=== PATIENT | female | born 1940 | race Caucasian/White ===

== ENCOUNTER → 2016-08-10 | Outpatient (CLI) | payer OTHER ==
[~2016-08-10] MED LIST: AMLO-110 PO; ASPI81TA28 PO; CALC500C70 PO; CETI10TA10 PO; CYAN100020 PO; DVN80 PO; FLUT0.0529 NAE; INSDGI SC; ISOS-10 PO; METO25TA3 PO; MONT1TAB3 PO; OMEG10007 PO; PRLSR20 PO; SIMV40TA4 PO
[2016-08-10 13:00] VITALS: BP 128/70; PULSE 84; TEMP 36.7; O2SAT 97
--- NOTE | 2016-08-10 13:33 | Radiation Oncology Follow-Up ---
Radiation Oncology Follow-Up Date of Visit Aug 10, 2016. (Pearl Cheng PA-C) Reason For Visit Annual follow-up (Pearl Cheng PA-C) Radiation Completion Date 01/11/15 (Pearl Cheng PA-C) Diagnosis (1) Endometrial cancer Status: Resolved Onset Date: 07/29/2014 Stage: l (A) Permanent Comment: Corpus uteri, endometrium, serous papillary adenocarcinoma, FIGO IA Postmenopausal vaginal bleeding Status post D&C and hysteroscopy 07/29/2014 revealing high-grade adenocarcinoma consistent with serous carcinoma Status post robotic-assisted total abdominal hysterectomy and bilateral salpingo -oophorectomy 08/12/2014 Pathologic stage [id number] Status post 3 cycles of Taxol and carboplatin Status post completion of radiation therapy utilizing HDR treatments. 3 treatments were given 700 cGy each radiation completed 01/11/2015 received 2100 cGy Last Edited By: Pearl Cheng on Jan 18, 2015 14:07 (Pearl Cheng PA-C) History of Present Illness Ms. Knight is a 76 year old female who initially presented with diffuse vaginal bleeding in June 2014. She was referred by her PCP to have a transvaginal ultrasound which was completed on 07/06/2014 which was limited due to technical difficulties. She then had a CT Abdo/Pelvis on the same day which revealed an enlarged anterior uterine mass which measured 7.3 cm but no other concerning findings (please refer to report scanned in for other information). Dr. Machado performed a dilatation and curettage on 07/29/2014; his examination revealed "somewhat hyperemic almost inflamed like tissue within the uterine cavity. Ostia was not seen. This was highly suggestive of malignancy." Biopsies revealed high grade adenocarcinoma most likely consisten with serous carcinoma. She then went to have a total abdominal hysterectomy and bilateral salpingo-oophorectomy (TAHBSO) which was completed on 08/12/[address] 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 Otherwise, the lymph nodes were all negative from the lymph node dissection which extended to the para-aortics. The patient was then referred to Dr. Vo who has been treating the patient with adjuvant carboplatin/ taxol chemotherapy. She only has one more cycle of chemotherapy remaining next week. We are now seeing her in consultation regarding the role of adjuvant radiation therapy. Today, she is doing relatively well. She has no complaints with respect to vaginal bleeding. She has no vaginal discharge or discomfort. She is tolerating chemotherapy well underneath the supervision of Dr. Vo. She completed her chemotherapy and return to our office to undergo radiation therapy. Recommendation for 3 HDR treatments. (Pearl Cheng PA-C) Interim History She is continued regular follow-up with Dr. Lee. She had been seeing him every 3 months. As is now every 6 months. She has external itching and redness. He has prescribed a topical steroid. With the use of this cream the itching has resolved. She does have some difficulty with keeping the prescription filled because of her renal months supply from [facility]. We did discuss that she could speak with Dr. Lee's office and obtain a higher quantity of medication. She previously was followed by Dr. Vo. He has since left the practice. She is going to continue with Dr. Lee alone. She denies any vaginal discharge. There is been no change in urination or bowel habits. She does not use the vaginal dilator on a regular basis. (Pearl Cheng PA-C) Allergies Coded Allergies: No Known Allergies (Unverified , 11/12/14) Home Medications Scheduled Amlodipine (Norvasc), 5 MG PO DAILY Aspirin (Aspirin Ec), 81 MG PO DAILY Cetirizine Hcl (Zyrtec), 10 MG PO DAILY Cyanocobalamin (Vitamin B12), 1,000 MCG PO 3XWK Insulin Glargine (Lantus), 34 UNITS SC HS Isosorbide Mononitrate (Isosorbide Mononitrate ER), 60 MG PO DAILY Metoprolol Succ (Toprol Xl) (Toprol-Xl), 25 MG PO DAILY Montelukast Sodium (Singulair), 10 MG PO DAILY Omeprazole (Prilosec), 20 MG PO DAILY Simvastatin (Zocor), 40 MG PO HS Valsartan (Diovan), 80 MG PO DAILY Review of Systems Gastrointestinal: Symptoms: WNL Oral: Symptoms: No Problems Respiratory: Symptoms: Dry Cough, SOB With Exertion Other Respiratory: " I have ashma and a constant cough " Urinary: Symptoms: WNL Skin: Symptoms: No Problems Other Skin Symptoms: sometimes perineum gets itchy , red and sore. OK on colbetasol oint (Pearl Cheng PA-C) Physical Exam Vital Signs Date Time Temp Pulse Resp B/P (MAP) Pulse Ox O2 Delivery O2 Flow Rate FiO2 08/10/16 13:00 36.7 84 22 128/70 97 Pain: Pain Onset: 2 days Pain Duration: constant Side: Bilateral Pain Location: Hip Patient Pain Scale: 0 - 10 Initial Pain Intensity: 0.0 Pain Description: Aching Fatigue: None General Appearance: no apparent distress Eyes: normal inspection, EOMI ENT: normal ENT inspection, hearing grossly normal Neck: no adenopathy Respiratory/Chest: lungs clear, no respiratory distress, no accessory muscle use Cardiovascular: regular rate, rhythm, no gallop, no murmur Abdomen: non tender, soft Genitourinary - Female: External genitalia reveals mild erythema of the labia. This extends mildly towards the rectal area. There is no discharge. Vaginal examination reveals mild telangiectasia at the apex. There is no vaginal discharge or bleeding. There are no visible or palpable lesions of the vagina. Bimanual examination reveals no masses. Anal / Rectum: No rectal masses and no rectal bleeding. Extremities: no pedal edema Neurologic/Psychiatric: no motor/sensory deficits, alert, normal mood/affect Skin: warm/dry (Pearl Cheng PA-C) Assessment & Plan Plan: The patient was also seen and examined by Dr. Alejandra. There was no difficulty with her examination and therefore the vaginal dilator does not have to use on a regular basis. She'll continue to see Dr. Lee every 6 months. He follows laboratory studies. Any recheck scanning per Dr. Noguera. She may call our office if she has any questions or concerns. We asked her to return to our office in 1 year. (Pearl Cheng PA-C) I agree with note created by Pearl Cheng PA-C. I reviewed the patient's chart and information with her. I have examined and evaluated the patient. I reviewed relevant clinical information and answered the patient's and/or family' s questions. (Veeral. Alejandra MD) Total Time In Follow-Up I spent 20 minutes speaking to the patient and performing examination. A 15 minutes reviewing information in completing this note. (Pearl Cheng PA-C) I spent 15 minutes examining and counseling the patient. (Veeral. Alejandra MD) Copy To Sree Guzman M.D.; Vel Lee M.D.
== END | disposition home or self-care (01) ==
LOC: C.ONC 12:49
PROVIDERS: ATTEND Physician Assistant Medical
DX: Z08 Encounter for follow-up examination after completed treatment for malignant neoplasm (principal); Z92.3 Personal history of irradiation; Z85.42 Personal history of malignant neoplasm of other parts of uterus

== ENCOUNTER 2019-02-04 16:12 | Inpatient (IN) ==
--- NOTE | 2019-02-04 20:27 | History & Physical Report ---
Date of Service February 04, 2019 Assessment & Plan (1) Bilateral pleural effusion: Admit to PCU on telemetry. Vital signs every 4 hours BNP, procalcitonin pending. Plan initial electrolytes as necessary. Consult thoracic surgery Dr. Irby Consult hematology oncology Dr. michelle Santoro. DVT prophylaxis SCDs and teds Full code Present on Admission?: Yes (2) Dyspnea: Duo nebs every 4 hours Will need to treat to the original problem which is most likely malignant bilateral pleural effusion. Pending evaluation by . Continue duo nebs, started on Symbicort. Continue montelukast 10 mg p.o. daily. Present on Admission?: Yes (3) Chronic cough: As above Present on Admission?: Yes (4) Gastrointestinal malignancy: Referred to Dr. michelle Santoro hematology oncology. 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 Present on Admission?: Yes (5) Hypertension: Continue home medicine: Aspirin 81 mg 1 tablet p.o. daily, metoprolol succinate 25 mg p.o. daily, continue isosorbide mononitrate 60 mg extended release. Present on Admission?: Yes History of Present Illness Chief Complaint: Bilateral pleural effusion, shortness of breath Primary Care Provider: Sree Guzman MD 78 years old female with past medical history of endometrial cancer which was removed to gather with ovaries in 2014 sent from her PCP Mr. Chirinos at [facility] in [place] where she was for follow-up, evaluation for bilateral pleural effusion with suspicion of metastatic pleural effusion. Patient reports being very short of breath in the past month. Patient recently had a thoracocentesis of the right lung and 1000 mils was removed from her right pleural effusion. Apparently there were found atypical cells in the fluid and diagnosed with a gastro-intestinal cancer. She is followed by hematology oncology. Patient said he did not find any saying on her left side. She continues to be short of breath and have discomfort with these inhalation. Patient denies fever, chills, chest pain, shortness of breath, abdominal pain, frequency, urgency. Labs are pending:, Chest x-ray is pending, at [facility] chest x-ray shows bilateral pleural effusion. Decision was made to admit patient to the PCU on telemetry for further evaluation and treatment of shortness of breath. Allergies Allergy/AdvReac Type Severity Reaction Status Date / Time animal dander Allergy Unknown Verified 02/04/19 11:59 grass pollen Allergy Unknown Verified 02/04/19 11:59 Home Medications Home Medications Medication Instructions Recorded Confirmed Type albuterol sulfate 90 mcg/actuation INHALATION .INHALE 2 PUFFS EVERY 11/18/18 02/04/19 History aerosol inhaler #3 gm aspirin 81 mg tablet PO .TAKE 1 TABLET DAILY. tab 11/18/18 02/04/19 History cyanocobalamin (vitamin B-12) 500 SL .TAKE 1 TABLET 3 TIME tab 11/18/18 02/04/19 History mcg disintegrating tablet,sublingual ergocalciferol (vitamin D2) 50,000 PO .TAKE 1 CAPSULE WEEKL #4 cap 11/18/18 02/04/19 History unit capsule ipratropium-albuterol 0.5 mg-3 INHALATION .USE 1 UNIT DOSE IN N 11/18/18 02/04/19 History mg(2.5 mg base)/3 mL nebulization #6 ml soln isosorbide mononitrate 60 mg PO .TAKE 1 TABLET ONCE D tab 11/18/18 02/04/19 History tablet,extended release 24 hr metoprolol succinate 25 mg PO .TAKE ONE TABLET BY M tab 11/18/18 02/04/19 History tablet,extended release 24 hr nitroglycerin 0.4 mg sublingual SL .PLACE 1 TABLET UNDER tab 11/18/18 02/04/19 History tablet omeprazole 20 mg capsule,delayed 1 PO .TAKE 1 CAPSULE Daily cap 11/18/18 02/04/19 History release rosuvastatin 5 mg tablet PO .TAKE 1 TABLET DAILY. #30 tab 11/18/18 02/04/19 History nebulizers #1 ea 11/19/18 02/04/19 Rx cetirizine 10 mg tablet 10 mg PO DAILY #90 tab 12/10/18 02/04/19 Rx montelukast 10 mg tablet 10 mg PO DAILY #90 tab 01/01/19 02/04/19 Rx levofloxacin 500 mg tablet 500 mg PO DAILY #14 tab 02/04/19 02/04/19 Rx prednisone 10 mg tablet See Rx Instructions PO DAILY #20 02/04/19 02/04/19 Rx tab Past Med/Surg History Social History Preferred Language: Mohawk Communication Ability: Effective Legislators Required: No Beliefs That Will Affect Care: None Current Living Situation: Spouse Feels Safe at Home: Yes Safety Concerns: Feels Safe At This Time Smoking Status: Never smoker Do You Dip or Chew Tobacco: No ; Second Hand Exposure: No ; Tobacco Cessation Education Requested by Patient: No Hx Alcohol Use: No Hx Substance Use: No Review of Systems Review of Systems: All systems reviewed & are unremarkable except as noted in HPI & below Physical Exam Constitutional: WD/WN, vitals as above well developed and + ill appearing Pacemaker left chest. Eyes: PERRL, conjunctivae normal, anicteric sclerae ENMT: external ear and nose normal, oropharynx normal Neck: trachea midline, no thyromegaly Respiratory: Auscultation: + diminished lung sounds, + crackles and + wheezes Cardiovascular: RRR, no murmur, no edema Gastrointestinal (Abdomen): normal bowel sounds, soft, nontender, no hepatosplenomegaly Musculoskeletal: no cyanosis or clubbing, extremities motor strength 5/5 Skin: no rashes, warm and dry Neurologic: patellar DTR's 2+ bilat, sensation intact Psychiatric: A+Ox3, euthymic affect Lymphatic: no cervical or axillary lymphadenopathy Results & Data Vital Signs (Past 12 Hours) Vital Signs Temp Pulse Resp BP Pulse Ox 02/04/19 18:59 36.5 C 84 18 143/72 H 93 Code Status & VTE Plan Code Status Full code VTE Prophylaxis Plan VTE Prophylaxis will be ordered: Yes PG Care Time/CCT Total # of Minutes Spent Total Time Spent with Patient: Total time spent is greater than 50% in coordination of care (as documented) at patient's floor/unit and/or counseling patient:
[2019-02-04] MEDS ORDERED: ACETAMINOPHEN 325 MG TAB PO PRN (20:29)
[2019-02-04] MEDS ORDERED: POLYETHYLENE (MIRALAX) 17 GM PACK PO PRN (20:29)
[2019-02-04] MEDS ORDERED: MAGNESIUM HYDROXIDE SUSP 30 ML UDC PO PRN (20:29)
[2019-02-04] MEDS ORDERED: ALBUT/IPRATROP 3MG/0.5MG NEB 3 ML VIAL INH PRN (20:29)
[2019-02-04] MEDS ORDERED: ALBUTEROL HFA 8 GM INHALER INH PRN (20:29)
--- NOTE | 2019-02-04 21:04 | XRay Report ---
XR chest 1V portable CLINICAL HISTORY: Bilateral pleural effusions. COMPARISON STUDY: PET/CT March 29, 2015. FINDINGS: Dual lead left subclavian pacemaker is in place. There is no pneumothorax. There is pulmona ry vascular congestion with suspected mild pulmonary edema. Moderate to large bilateral pleural effus ions are noted with bibasilar opacities. IMPRESSION: 1. Moderate to large bilateral pleural effusions with bibasilar opacities that may reflect atelectasi s or consolidation. Radiographic follow-up is recommended. 2. Pulmonary vascular congestion with suspected mild pulmonary edema. Electronically signed by: Tonio Mead M.D. 02/04/2019 9:03 PM
[2019-02-04 21:24] LABS: Thyroid Stimulating Hormone 3.41 uIu/ml (0.300-4.500)
[2019-02-04] MEDS: BUDESONIDE/FORMOTEROL FUMARATE 160/4.5 60 PUFFS/INHALER INH SCH (21:45)
[2019-02-04] MEDS: CYANOCOBALAMIN 500 MCG TABLET (VITAMIN B-12) PO SCH (21:46)
[2019-02-04] MEDS: METOPROLOL SUCC 25MG EXT REL TAB PO SCH (21:47)
[2019-02-04] MEDS ORDERED: INFLUENZA VACCINE HIGH DOSE 65+ 0.5 ML SYR IM ONE (22:45)
[2019-02-04] MEDS ORDERED: INFLUENZA ADMINISTRATION CHARGE ONE (22:45)
[2019-02-05 06:22] LABS: Basophils # (auto) 0.03 K/uL (0-0.2); Basophils % (auto) 0.4 %; Eosinophils # (auto) 0.27 K/uL (0-0.5); Eosinophils % (auto) 3.8 %; Hematocrit (blood only) 36.2 % (37-47); Hemoglobin 11.4 g/dL (12.0-16.0); Immature Granulocytes # (auto) 0.01 K/uL (0.00-0.02); Immature Granulocytes % (auto) 0.1 %; Lymphocytes # (auto) 1.86 K/uL (1.2-3.4); Lymphocytes % (auto) 26.1 %; Mean Corpuscular Hemoglobin 26.6 pg (25-34); Mean Corpuscular Hgb Conc 31.5 g/dL (32-36); Mean Corpuscular Volume 84.6 fL (80-100); Mean Platelet Volume 10.2 fL (7.4-10.4); Monocytes # (auto) 0.63 K/uL (0.11-0.59); Monocytes % (auto) 8.8 %; Neutrophils # (auto) 4.33 K/uL (1.4-6.5); Neutrophils % (auto) 60.8 %; Platelet Count 350 K/uL (130-400); RDW Coefficient of Variation 14.1 % (11.5-14.5); Red Blood Count 4.28 M/uL (4.2-5.4); White Blood Count 7.13 K/uL (4.8-10.8)
[2019-02-05 06:35] LABS: Partial Thromboplastin Ratio 0.9; Prothrombin Time 10.3 Seconds (9.0-12.0)
[2019-02-05 06:57] LABS: Albumin Level 3.1 gm/dl (3.4-5.0); BUN Creatinine Ratio 28.3 (10-20); Creatinine Clr Calc Pharmacy 24.3 ml/min; Est GFR (African American) 34.6; Est GFR (Non-African American) 29.9; Potassium 4.3 mmol/L (3.5-5.1)
[2019-02-05 07:00] LABS: Albumin Globulin Ratio 0.8 (0.9-2); Bilirubin,Total 0.3 mg/dl (0.2-1); Globulin 3.8 gm/dl (2.5-4.0); Total Protein 6.9 gm/dl (6.4-8.2)
[2019-02-05] MEDS ORDERED: LIDOCAINE HCL 1% 20 ML VIAL ONE (07:45)
--- NOTE | 2019-02-05 08:04 | Surgery Consultation ---
Date of Consultation February 05, 2019 Assessment & Plan (1) Bilateral pleural effusion: We will plan on draining her fluid. We will likley start with either a right pleurex insertion or right thoracentesis. We will send the fluid for appropriate analysis. Based on her response we may consider a left thoracentesis as well. I discussed with her the risks which include but are not limited to bleeding, infection, pneumothorax, re-expansion pulmonary edema, and fluid recurrence. The alternative is clinical monitoring. The benefits include improving her respiratory status and obtaining a diagnosis of the fluid. She expressed her understanding and wishes to proceed. Informed consent has been obtained. History of Present Illness Reason for Consultation: Bilateral Pleural Effusions Attending Physician: Shahriar Narvaez DO History of Present Illness 78 year old female was seen by pulmonary medicine yesterday due to SOB. She was sent for a CXR which showed bilateral pleural effusions. Due to this she was admitted to [facility] for further care. She notes she had a right thoracentesis for 1000 cc about 1 week ago at [facility]. There was reportedly concern for atypical cell concerning for malignancy. She notes that over the past wee, however, she has continue to be SOB which has gotten progressively worse. She notes she is SOB with minimal activity and sometimes at rest. She denies fevers, shakes, chills. Of note, she was diagnosed with endometrial cancer in 2104 for which she underwent a PAOLO-BSO followed by chemotherapy and brachytherapy. She was noted to have ascites recently and underwent a paracentesis on 12/26/18--the fluid revealed metastatic adenocarcinoma concerning for uterine/ovarian primary. At the time of my visit she was sitting up at the beside n no distress. Allergies Allergy/AdvReac Type Severity Reaction Status Date / Time animal dander Allergy Unknown Verified 02/04/19 11:59 grass pollen Allergy Unknown Verified 02/04/19 11:59 Home Medications Home Medications Medication Instructions Recorded Confirmed Type albuterol sulfate 90 mcg/actuation INHALATION .INHALE 2 PUFFS EVERY 11/18/18 02/04/19 History aerosol inhaler #3 gm aspirin 81 mg tablet PO .TAKE 1 TABLET DAILY. tab 11/18/18 02/04/19 History cyanocobalamin (vitamin B-12) 500 SL .TAKE 1 TABLET 3 TIME tab 11/18/18 02/04/19 History mcg disintegrating tablet,sublingual ergocalciferol (vitamin D2) 50,000 PO .TAKE 1 CAPSULE WEEKL #4 cap 11/18/18 02/04/19 History unit capsule ipratropium-albuterol 0.5 mg-3 INHALATION .USE 1 UNIT DOSE IN N 11/18/18 02/04/19 History mg(2.5 mg base)/3 mL nebulization #6 ml soln isosorbide mononitrate 60 mg PO .TAKE 1 TABLET ONCE D tab 11/18/18 02/04/19 History tablet,extended release 24 hr metoprolol succinate 25 mg PO .TAKE ONE TABLET BY M tab 11/18/18 02/04/19 History tablet,extended release 24 hr nitroglycerin 0.4 mg sublingual SL .PLACE 1 TABLET UNDER tab 11/18/18 02/04/19 History tablet omeprazole 20 mg capsule,delayed 1 PO .TAKE 1 CAPSULE Daily cap 11/18/18 02/04/19 History release rosuvastatin 5 mg tablet PO .TAKE 1 TABLET DAILY. #30 tab 11/18/18 02/04/19 History nebulizers #1 ea 11/19/18 02/04/19 Rx cetirizine 10 mg tablet 10 mg PO DAILY #90 tab 12/10/18 02/04/19 Rx montelukast 10 mg tablet 10 mg PO DAILY #90 tab 01/01/19 02/04/19 Rx levofloxacin 500 mg tablet 500 mg PO DAILY #14 tab 02/04/19 02/04/19 Rx prednisone 10 mg tablet See Rx Instructions PO DAILY #20 02/04/19 02/04/19 Rx tab Patient History Social History Preferred Language: [place]araguan Communication Ability: Effective Pipe Stress Engineer Required: No Beliefs That Will Affect Care: None Current Living Situation: Spouse Feels Safe at Home: Yes Safety Concerns: Feels Safe At This Time Smoking Status: Never smoker Do You Dip or Chew Tobacco: No ; Second Hand Exposure: No ; Tobacco Cessation Education Requested by Patient: No Hx Alcohol Use: No Hx Substance Use: No Review of Systems Constitutional: no fever, no chills, no sweats and no fatigue Eyes: no diplopia Ear, Nose, Mouth, Throat: no ear pain Respiratory: + dyspnea and + dyspnea on exertion Cardiovascular: no chest pain Gastrointestinal: no nausea Musculoskeletal: no back pain Integumentary: no rash Neurologic: no localized weakness Physical Exam Constitutional: well developed and well nourished; no acute distress Eyes: no corneal abnormality ENMT: Ears: no hearing impairment Neck: trachea midline Respiratory: normal respiratory effort; no respiratory distress and no labored breathing BS are markedly decreased at bases bilaterally Cardiovascular: Rate/Rhythm: regular rate and regular rhythm Gastrointestinal (Abdomen): Percussion/Palpation: abdomen soft; abdomen nontender Skin: no rashes, warm and dry Neurologic: no focal deficits; follows commands and moves all extremities Psychiatric: A+Ox3, euthymic affect Results & Data Vital Signs (Past 12 Hours) Vital Signs Temp Pulse Pulse Resp BP Pulse Ox 02/05/19 07:15 36.8 C 83 18 144/75 H 93 02/05/19 03:40 36.8 C 82 18 158/85 H 90 02/05/19 00:51 79 02/04/19 23:03 36.4 C L 78 20 135/67 90 PG Care Time/CCT Total # of Minutes Spent Total Time Spent with Patient: Total time spent is greater than 50% in coordin ation of care (as documented) at patient's floor/unit and/or counseling patient:
--- NOTE | 2019-02-05 08:30 | Hospitalist Progress Note ---
Date of Service February 05, 2019 Assessment & Plan (1) Bilateral pleural effusion: Ms. Knight is an 78yo female with a PMHx significant for Hx of endometrial cancer diagnosed in 2014 (s/p total hysterectomy with bilateral salpingo- oophorectomy, chemotherapy and brachytherapy) with metastatic ascitic recurrence noted in November 2018 and presents currently with SOB secondary to a likely malignant pleural effusion. Also has Hx of HTN, CAD s/p pacemaker placement, asthma and chronic sinusitis. Exertional Dyspnea -likely secondary to bilateral pleural effusions noted on chest XR -no oxygen requirement currently; will continue to monitor -continue duonebs PRN -therapeutic thoracentesis (left sided) anticipated later today with placement of Pleur-X Bilateral Pleural Effusion -pt presents with dyspnea, mostly exertional -Chest XR-shows bilateral pleural effusions -likely malignant, secondary to Hx of endometrial carcinoma now with metastases (see below) -drained on right at [facility] a week ago; cytology with ?GI malignant source- will reconfirm here. -Surgery on board, plan to drain right side once more with possibility of draining left side as well. -will await cytology results Endometrial Carcinoma with current metastases -Hx of endometrial cancer diagnosed in 2014 (s/p total hysterectomy with bilateral salpingo-oophorectomy, chemotherapy and brachytherapy) -In Nov 2018, noted ascitic metastases (no noted abd masses) with therapeutic paracentesis -Now noted bilateral pleural effusions (as above), likely malignant -Pt scheduled to undergo chemotherapy once more after noted ascites, with port to be placed next week. -Heme-onc (Dr. Hinton who is familiar with pt) consulted, appreciate recs. -continue Vit D, B administration -continue scheduled Tylenol for pain, PRN oxycodone and morphine CAD: continue home isosorbide mononitrate 60mg once daily, crestor 5mg. holding aspirin 81mg given procedure today. HTN: continue home metoprolol succinate 25mg ER Asthma: on duonebs PRN as above, continue home albuterol inhaler PRN, symbicort, singulair and Zyrtec Chronic sinusitis: No complaints currently FEN/GI: Heart healthy DVT Prophylaxis: SCDs, teds CODE Status: Full Supervising Physician Co-Signing Physician Notes I personally examined the patient and verified all mota points of history and exam, discussed case, and agree with decision making with Dr Correa. Feeling okay other than some pain at the chest tube site. Breathing feels better. No other new complaints. Vitals noted, in general she is awake and alert pleasant no distress. HEENT normocephalic atraumatic mucous membranes are moist. Breathing unlabored no accessory muscle use good effort. Skin shows no rashes no pallor or icterus. Metastatic endometrial cancerit appears that she has diffusely metastatic cancer, her pleural effusions and the ascites that was apparently taken off prior all sounds to be related to her endometrial cancer as the primary. Continue supportive care, Pleurx drainage, heme otology/oncology is planning on initiating chemotherapy with a good hope for success. Discharged home once okay with thoracic surgery. Subjective Ms. Knight seen this AM. States her main complaint is exertional dyspnea. Also has some right hand tingling. Denies any headache, changes to vision, cough, runny nose, sore throat, dizziness, weakness, chest pain, palpitations, abdominal pain, diarrhea or constipation, swelling in hands or feet. Review of Systems Review of Systems: All systems reviewed & are unremarkable except as noted in HPI & below Physical Exam Physical Exam: General: Alert, oriented. No acute distress, seated at bedside Skin: No noted rashes or bruises Psych: Appropriate mood and affect Neuro: No gross deficits HEENT: NC/AT, PERRLA, EOMI, oropharynx moist. Chest: Nontender to palpation. CV: RRR, Normal s1, s2. No murmurs appreciated Resp: Breath sounds clear in upper lobes bilaterally, decreased breath sounds at bases bilaterally. Abdomen: Soft, abdomen mildly diffusely tender, distended. No guarding. No organomegaly appreciated. Extremities: No edema in lower extremities bilaterally. Results & Data Vital Signs (Past 12 Hours) Vital Signs Temp Pulse Pulse Resp BP Pulse Ox 02/05/19 07:15 36.8 C 83 18 144/75 H 93 02/05/19 03:40 36.8 C 82 18 158/85 H 90 02/05/19 00:51 79 02/04/19 23:03 36.4 C L 78 20 135/67 90 Laboratory Results Laboratory Results - last 24 hr 02/04/19 02/04/19 02/05/19 20:44 21:05 05:55 WBC 7.13 RBC 4.28 Hgb 11.4 L Hct 36.2 L MCV 84.6 MCH 26.6 MCHC 31.5 L RDW Std Deviation 43.0 RDW Coeff of Hoa 14.1 Plt Count 350 MPV 10.2 Immature Gran % (Auto) 0.1 Neut % (Auto) 60.8 Lymph % (Auto) 26.1 [place] % (Auto) 8.8 Eos % (Auto) 3.8 Baso % (Auto) 0.4 Immature Gran # (Auto) 0.01 Neut # (Auto) 4.33 Lymph # (Auto) 1.86 [place] # (Auto) 0.63 H Eos # (Auto) 0.27 Baso # (Auto) 0.03 PT INR APTT PTT Ratio Sodium Potassium Chloride Carbon Dioxide Anion Gap BUN Creatinine Est Cr Clr Drug Dosing Est GFR ( Amer) Est GFR (Non-Af Amer) BUN/Creatinine Ratio Glucose POC Glucose 136 H Calcium Total Bilirubin AST ALT Alkaline Phosphatase NT-Pro-B Natriuret Pep 394 Total Protein Albumin Globulin Albumin/Globulin Ratio TSH 3.410 02/05/19 02/05/19 05:55 05:55 WBC RBC Hgb Hct MCV MCH MCHC RDW Std Deviation RDW Coeff of Hoa Plt Count MPV Immature Gran % (Auto) Neut % (Auto) Lymph % (Auto) [place] % (Auto) Eos % (Auto) Baso % (Auto) Immature Gran # (Auto) Neut # (Auto) Lymph # (Auto) [place] # (Auto) Eos # (Auto) Baso # (Auto) PT 10.3 INR 1.0 APTT 25.0 PTT Ratio 0.9 Sodium 140 Potassium 4.3 Chloride 107 Carbon Dioxide 26 Anion Gap 7.0 BUN 45 H Creatinine 1.61 H Est Cr Clr Drug Dosing 24.3 Est GFR ( Amer) 34.6 Est GFR (Non-Af Amer) 29.9 BUN/Creatinine Ratio 28.3 H Glucose 116 H POC Glucose Calcium 9.0 Total Bilirubin 0.3 AST 14 L ALT 15 Alkaline Phosphatase 58 NT-Pro-B Natriuret Pep Total Protein 6.9 Albumin 3.1 L Globulin 3.8 Albumin/Globulin Ratio 0.8 L TSH Medications Administered Home Medications albuterol sulfate 90 mcg/actuation aerosol inhaler INHALATION .INHALE 2 PUFFS EVERY #3 gm 11/18/18 [History Confirmed 02/04/19] aspirin 81 mg tablet PO .TAKE 1 TABLET DAILY. tab 11/18/18 [History Confirmed 02/04/19] cyanocobalamin (vitamin B-12) 500 mcg disintegrating tablet,sublingual SL .TAKE 1 TABLET 3 TIME tab 11/18/18 [History Confirmed 02/04/19] ergocalciferol (vitamin D2) 50,000 unit capsule PO .TAKE 1 CAPSULE WEEKL #4 cap 11/18/18 [History Confirmed 02/04/19] ipratropium-albuterol 0.5 mg-3 mg(2.5 mg base)/3 mL nebulization soln INHALATION .USE 1 UNIT DOSE IN N #6 ml 11/18/18 [History Confirmed 02/04/19] isosorbide mononitrate 60 mg tablet,extended release 24 hr PO .TAKE 1 TABLET ONCE D tab 11/18/18 [History Confirmed 02/04/19] metoprolol succinate 25 mg tablet,extended release 24 hr PO .TAKE ONE TABLET BY M tab 11/18/18 [History Confirmed 02/04/19] nitroglycerin 0.4 mg sublingual tablet SL .PLACE 1 TABLET UNDER tab 11/18/18 [History Confirmed 02/04/19] omeprazole 20 mg capsule,delayed release 1 PO .TAKE 1 CAPSULE Daily cap 11/18/18 [History Confirmed 02/04/19] rosuvastatin 5 mg tablet PO .TAKE 1 TABLET DAILY. #30 tab 11/18/18 [History Confirmed 02/04/19] nebulizers #1 ea 11/19/18 [Rx Confirmed 02/04/19] cetirizine 10 mg tablet 10 mg PO DAILY #90 tab 12/10/18 [Rx Confirmed 02/04/19] montelukast 10 mg tablet 10 mg PO DAILY #90 tab 01/01/19 [Rx Confirmed 02/04/19] levofloxacin 500 mg tablet 500 mg PO DAILY #14 tab 02/04/19 [Rx Confirmed 02/04/19] prednisone 10 mg tablet See Rx Instructions PO DAILY #20 tab 02/04/19 [Rx Confirmed 02/04/19] Active Medications Acetaminophen (Tylenol) 650 mg PO Q4H PRN PRN Reason: Pain or Fever Stop: 03/06/19 20:28 Al Hydrox/Mg Hydrox/Simethicone (Maalox) 15 ml PO Q4H PRN PRN Reason: Dyspepsia Stop: 03/06/19 20:28 Albuterol (Ventolin Hfa) 2 puffs INH Q6H PRN PRN Reason: Shortness Of Breath Or Wheezing Stop: 03/06/19 20:28 Albuterol (Duoneb) 3 ml INH Q6H PRN PRN Reason: Shortness Of Breath Or Wheezing Stop: 03/06/19 20:28 Aspirin (Ecotrin Ectab) 81 mg PO DAILY [facility] Stop: 03/07/19 08:59 Budesonide/Formoterol Fumarate (Symbicort 160mcg/4.5mcg) 2 puffs INH BID ROSMERY Stop: 03/06/19 20:59 Last Admin: 02/05/19 09:34 Dose: 2 puffs Documented by: Cetirizine HCl (Zyrtec) 10 mg PO DAILY [facility] Stop: 03/07/19 08:59 Last Admin: 02/05/19 09:33 Dose: 10 mg Documented by: Cyanocobalamin (Vitamin B-12) 1,000 mcg PO TID ROSMERY Stop: 03/06/19 20:59 Last Admin: 02/05/19 09:32 Dose: 1,000 mcg Documented by: Isosorbide Mononitrate (Imdur Extended Rel) 60 mg PO DAILY [facility] Stop: 03/07/19 08:59 Last Admin: 02/05/19 09:33 Dose: 60 mg Documented by: Magnesium Hydroxide (Milk Of Magnesia) 30 ml PO Q12H PRN PRN Reason: Constipation Stop: 03/06/19 20:28 Metoprolol Succinate (Toprol Xl) 25 mg PO BID [facility] Stop: 03/06/19 20:59 Last Admin: 02/05/19 09:32 Dose: 25 mg Documented by: Montelukast Sodium (Singulair) 10 mg PO DAILY [facility] Stop: 03/07/19 08:59 Last Admin: 02/05/19 09:33 Dose: 10 mg Documented by: Ondansetron HCl (Zofran) 4 mg IV Q6H PRN PRN Reason: Nausea Stop: 03/06/19 20:28 Polyethylene Glycol (Miralax Powder Packet) 17 gm PO DAILY PRN PRN Reason: Constipation Stop: 03/06/19 20:28 Rosuvastatin Calcium (Crestor) 5 mg PO DAILY [facility] Stop: 03/07/19 08:59 Last Admin: 02/05/19 09:33 Dose: 5 mg Documented by: Vitamin D (Vitamin D3) 1,000 units PO QAM ROSMERY Stop: 03/07/19 08:59 Last Admin: 02/05/19 09:33 Dose: 1,000 units Documented by: Zolpidem Tartrate (Ambien) 2.5 mg PO HS PRN PRN Reason: Sleep Stop: 03/06/19 20:28 Resident Activity Tracking Resident Involvement: Resident Care Provided Care Provided: Adult Hospital Medicine
[2019-02-05] MEDS ORDERED: ISOSORBIDE MONO EXTENDED REL 30 MG TABCR PO SCH (09:00)
[2019-02-05] MEDS ORDERED: ASPIRIN 81 MG ECTAB PO SCH (09:00)
[2019-02-05] MEDS: METOPROLOL SUCC 25MG EXT REL TAB PO SCH ×2 (09:32→20:19)
[2019-02-05] MEDS: CYANOCOBALAMIN 500 MCG TABLET (VITAMIN B-12) PO SCH ×3 (09:32→20:20)
[2019-02-05] MEDS: MONTELUKAST SODIUM 10 MG TABLET PO SCH (09:33)
[2019-02-05] MEDS: CETIRIZINE HCL 10 MG TABLET PO SCH (09:33)
[2019-02-05] MEDS: ISOSORBIDE MONO EXTENDED REL 60 MG TABCR PO SCH (09:33)
[2019-02-05] MEDS: ROSUVASTATIN CALCIUM 5 MG TAB PO SCH (09:33)
[2019-02-05] MEDS: CHOLECALCIFEROL 1,000 UNITS TAB PO SCH (09:33)
[2019-02-05] MEDS: BUDESONIDE/FORMOTEROL FUMARATE 160/4.5 60 PUFFS/INHALER INH SCH ×2 (09:34→20:22)
--- NOTE | 2019-02-05 10:06 | CT Scan Report ---
CT chest wo con CLINICAL HISTORY: 78 years-old Female presenting with bilateral effusions. TECHNIQUE: Multidetector CT imaging of the chest was performed without the use of intravenous contras t. IV contrast: None. One or more dose lowering techniques were used consistent with the principles o f ALARA (as low as reasonably achievable), including automatic exposure control, mA or kV adjustment to individual patient size, and/or use of iterative reconstruction. COMPARISON: Chest x-ray performed yesterday. CT DOSE (mGy.cm): The estimated cumulative dose is 630.88 mGy.cm. FINDINGS: Pocket Machine Operator topogram: Left subclavian pacer with leads to the right atrium and right ventricular apex. Bila teral pleural effusions. Soft tissues: Normal thyroid and thoracic inlet. No axillary, supraclavicular, or mediastinal lymphad enopathy. Evaluation of the zohra limited without intravenous contrast. Atherosclerosis of the aorta. Normal heart size. Coronary artery and aortic valve calcification. Large bilateral grossly simple tonya earing pleural effusions. No pericardial effusion. Upper abdominal ascites and infiltrated omentum. H epatic steatosis. Prominent right renal cyst. Hemorrhagic or proteinaceous cyst suspected in the left kidney. Lungs and airways: Small to moderate right pneumothorax and soft tissue emphysema along the posterior right chest wall likely indicating interval thoracentesis. Central airways patent. Pulmonary arterie s are not significantly enlarged relative to adjacent bronchi. Minimal interlobular septal thickening . Extensive consolidation and volume loss predominantly in the lower lobes in a dependent distributio n consistent with passive atelectasis. Mild mosaic attenuation could indicate small airways disease. A few scattered punctate nodules. Musculoskeletal: Degenerative changes of the spine. Advanced degenerative changes of the glenohumeral joints. IMPRESSION: 1. Small to moderate right pneumothorax and right chest wall emphysema possibly indicating interval thoracentesis as no pneumothorax was evident on the prior radiograph. 2. Large bilateral pleural effusions, which are simple appearing. 3. Extensive associated passive atelectasis. 4. No evidence of pulmonary edema or pneumonia. Electronically signed by: Abdifatah Goldman M.D. 02/05/2019 10:05 AM
[2019-02-05] MEDS ORDERED: MoRPHine SULFATE 2 MG/ML CARP IV STA (12:39)
[2019-02-05] MEDS ORDERED: OXYCODONE HCL IR 5 MG TAB (IMMEDIATE RELEASE) PO PRN (12:39)
[2019-02-05] MEDS ORDERED: MoRPHine SULFATE 2 MG/ML CARP IV PRN (12:39)
[2019-02-05] MEDS ORDERED: MoRPHine SULFATE 2 MG/ML CARP ONE (12:42)
[2019-02-05] MEDS ORDERED: OXYCODONE HCL IR 5 MG TAB (IMMEDIATE RELEASE) ONE (12:54)
--- NOTE | 2019-02-05 12:57 | XRay Report ---
SINGLE VIEW CHEST CLINICAL HISTORY: Pleurx catheter placement. FINDINGS: An AP, portable, upright chest radiograph is compared to study dated 02/04/2019 and correla alberto with chest CT performed the same day 02/05/2019. The examination is degraded by portable techniqu e and patient rotation. A 2-lead cardiac pacemaker is unchanged in position and partially obscures th e left mid chest. The heart is top normal for projection noting atherosclerotic calcification of the thoracic aorta. Mild pulmonary vascular congestion persists. A Pleurx catheter has been placed at the right lung base. There is a small residual right pleural effusion with associated right basilar atel ectasis. This has decreased in size from previous. There is a moderate to large left pleural effusion with associated consolidation. There is likely a trace right apical pneumothorax. The skeletal struc tures are osteopenic. The bony thorax is grossly intact. Degenerative change is noted in the shoulder s and thoracic spine. IMPRESSION: 1. A Pleurx catheter has been placed at the right lung base. There is a small residual right pleural effusion with associated atelectasis. 2. A trace right apical pneumothorax is suspected. 3. Moderate to large left pleural effusion with associated consolidation. This is similar to previous . 4. Cardiac pacemaker. Mild pulmonary vascular congestion persists.. Electronically signed by: Olu Garcia M.D. 02/05/2019 12:55 PM
--- NOTE | 2019-02-05 13:22 | Procedure Note ---
Procedure Note Date of Service February 05, 2019 Note Alix Knight is a very nice 78-year-old female who was recently found to have a malignant right pleural effusion. She improved after a thoracentesis but this was short-lived. She states that she is quite short of breath although she is not on oxygen. She was seen by Franck Chirinos from pulmonary and sent to [facility] where x-rays showed this fluid had reaccumulated. She was admitted to [facility] for more definitive work-up and treatment of these large symptomatic pleural effusions. Patient denies fevers. She has had no productive cough or hemoptysis. I agree with Mr. Chirinos that she needs a Pleurx catheter. We discussed this in some detail. With the patient in the left lateral decubitus position I evaluated her with an ultrasound and really did not appear she had much fluid but I believe it was dependent. I put a needle in it did not get any fluid so I asked that a CT scan be repeated. This showed that indeed she did have homogenous fluid which was free-flowing. For this reason I then made my incision or posterior where the ultrasound showed she had more fluid. We then drained out about 1000 cc of fluid with a small amount of air. Her chest x-ray showed good expansion of her lung. Procedure patient left lateral cues position and ultrasound was used to evaluate her and we did see fluid although its more posterior than I would like. Also a bit lower. She is prepped and draped you sterile fashion for appropriate timeout of been called a 25-gauge needle 1% Xylocaine without epinephrine was used to anesthetize the skin and subcutaneous tissues. A large bore needle was used to anesthetize intercostal muscles and the pleura and we get free-flowing fluid. A guidewire through the needle needle removed. About 12 cm anterior to this and the skin wheal was raised 25-gauge needle of Xylocaine and a small incision made. 1 cm incisions were made in both of the skin wheals. I then used a long needle 1% Xylocaine without epinephrine to anesthetize subcutaneous tissues between these 2 incisions. A tunneler was attached to the Pleurx catheter and dragged from the anterior incision of the posterior incision and then the tunneler detached. An introducer sheath with a peel-away catheter was slid over the guidewire into the pleural cavity posteriorly and inner cannula and guidewire removed. Pleurx catheter was inserted through the peel-away sheath which was removed. 2 separate 2-0 silk sutures were used to close the incision posteriorly and a 2-0 silk suture was used to anchor the catheter the patient's skin anteriorly. Approximate 1000 cc of rust colored fluid and air w as drained. She had significant reexpansion pain and we stopped. Her x-ray showed expansion of her lung with essentially resolution of the fluid. She tolerated it well. Antimicrobial dressings were placed. I discussed this in detail with the patient and the family. [facility] She may well be able to go home tomorrow. Coding
[2019-02-05] MEDS: ACETAMINOPHEN 1,000 MG/100 ML VIAL IV SCH ×2 (13:32→20:06)
[2019-02-05 13:49] LABS: Total Protein Pleural Fluid 4.4 g/dl
[2019-02-05 14:04] LABS: Appearance Pleural Fluid CLOUDY; Color Pleural Fluid AMBER; RBC Pleural Fluid (A) 12000 /uL; Source Pleural Fluid RIGHT LUNG; WBC Pleural Fluid (A) 1465 /uL
[2019-02-05 14:05] LABS: Eosinophils, Fluid 0 %; Lymphocytes, Fluid 4 %; Mono,Macrophage,Mesothelial 2 %; Neutrophils, Fluid 93 %
[2019-02-05] MEDS ORDERED: OXYCODONE HCL IR 5 MG TAB (IMMEDIATE RELEASE) PO STA (14:41)
[2019-02-05] MEDS: ALUMINUM/MAGNESIUM SUSP 30 ML UDC PO PRN ×2 (14:45→20:18)
--- NOTE | 2019-02-05 17:03 | Oncology Consultation ---
Date of Consultation February 05, 2019 Assessment & Plan (1) Endometrial cancer: She does not have a gastrointestinal malignancy. The malignant cells obtained from her ascites are consistent by immunohistochemistry with a serous ovarian/endometrial primary. She has recurrent serous endometrial cancer. Unfortunately, that disease is not curable. However, she enjoyed a period of remission of more than 4 years, so hopefully she will experience another lengthy remission with chemotherapy. We are proceeding with arrangements for treatment in my office, with a plan to start in the near future. She has appropriate follow up scheduled for this issue. Present on Admission?: Yes (2) Bilateral pleural effusion: She is feeling much better after her right Pleur-x catheter placement and hopefully will have the other side drained tomorrow. Once we begin treatment, this fluid should stop reaccumulating and we will be able to remove these drains. Present on Admission?: Yes History of Present Illness Reason for Consultation: Metastatic serous endometrial carcinoma Attending Physician: Shahriar Narvaez, History of Present Illness Ms. Knight is an 78 year old woman with a history of HTN, DM, CAD s/p a PCI in the past, and mild asthma. She was treated in the summer of 2014 for a high- grade serous endometrial cancer. On 08/12/14, she underwent PAOLO/BSO revealing FIGO Stage IA (pT1a pN0 cM0) disease. She was treated with 3 cycles of weekly Carbo/Taxol and then underwent vaginal brachytherapy. She did well until llNovember 2018, when she presented with 1-2 months of abdominal bloating and low pelvic pain. A CT A/P 12/12/18 revealed ascites with no obvious abdominal or pelvic masses. A CA125 at that time was 621. She underwent diagnostic paracentesis on 12/26/18 that confirmed the presence of metastatic adenocarcinoma with an IHC pattern consistent with a ovarian/uterine primary. She met with me recently and we had planned to start carboplatin and paclitaxel for recurrent serous endometrial cancer. However, she also developed pleural effusions and presented to pulmonology on 02/04 with worsening SOB. They arranged for her to be admitted and she underwent a right Pleur-x catheter placement. She will have the contralateral side drained tomorrow if she does well today. Her breathing is more comfortable after the tube. She also has less pain overall, though she's still sore. She denies any abdominal pain, bleeding, nausea, vomiting, or other acute symptoms. Allergies Allergy/AdvReac Type Severity Reaction Status Date / Time animal dander Allergy Unknown Verified 02/04/19 11:59 grass pollen Allergy Unknown Verified 02/04/19 11:59 Home Medications Home Medications Medication Instructions Recorded Confirmed Type albuterol sulfate 90 mcg/actuation INHALATION .INHALE 2 PUFFS EVERY 11/18/18 02/04/19 History aerosol inhaler #3 gm aspirin 81 mg tablet PO .TAKE 1 TABLET DAILY. tab 11/18/18 02/04/19 History cyanocobalamin (vitamin B-12) 500 SL .TAKE 1 TABLET 3 TIME tab 11/18/18 02/04/19 History mcg disintegrating tablet,sublingual ergocalciferol (vitamin D2) 50,000 PO .TAKE 1 CAPSULE WEEKL #4 cap 11/18/18 02/04/19 History unit capsule ipratropium-albuterol 0.5 mg-3 INHALATION .USE 1 UNIT DOSE IN N 11/18/18 02/04/19 History mg(2.5 mg base)/3 mL nebulization #6 ml soln isosorbide mononitrate 60 mg PO .TAKE 1 TABLET ONCE D tab 11/18/18 02/04/19 History tablet,extended release 24 hr metoprolol succinate 25 mg PO .TAKE ONE TABLET BY M tab 11/18/18 02/04/19 History tablet,extended release 24 hr nitroglycerin 0.4 mg sublingual SL .PLACE 1 TABLET UNDER tab 11/18/18 02/04/19 History tablet omeprazole 20 mg capsule,delayed 1 PO .TAKE 1 CAPSULE Daily cap 11/18/18 02/04/19 History release rosuvastatin 5 mg tablet PO .TAKE 1 TABLET DAILY. #30 tab 11/18/18 02/04/19 History nebulizers #1 ea 11/19/18 02/04/19 Rx cetirizine 10 mg tablet 10 mg PO DAILY #90 tab 12/10/18 02/04/19 Rx montelukast 10 mg tablet 10 mg PO DAILY #90 tab 01/01/19 02/04/19 Rx levofloxacin 500 mg tablet 500 mg PO DAILY #14 tab 02/04/19 02/04/19 Rx prednisone 10 mg tablet See Rx Instructions PO DAILY #20 02/04/19 02/04/19 Rx tab Patient History Social History Preferred Language: Portuguese Communication Ability: Effective Automatic Outsole Cutter Required: No Beliefs That Will Affect Care: None Current Living Situation: Spouse Feels Safe at Home: Yes Safety Concerns: Feels Safe At This Time Smoking Status: Never smoker Do You Dip or Chew Tobacco: No ; Second Hand Exposure: No ; Tobacco Cessation Education Requested by Patient: No Hx Alcohol Use: No Hx Substance Use: No Review of Systems Review of Systems: All systems reviewed & are unremarkable except as noted in HPI & below Physical Exam Constitutional: comfortable; no acute distress Eyes: + anicteric sclerae ENMT: external ear and nose normal, oropharynx normal Respiratory: Auscultation: lungs clear to auscultation bilaterally and + diminished lung sounds (in the left lung base) Cardiovascular: RRR, no murmur, no edema Gastrointestinal (Abdomen): Inspection/Auscultation: normal bowel sounds; abdomen not distended Percussion/Palpation: abdomen soft; abdomen nontender Psychiatric: A+Ox3, euthymic affect Lymphatic: no cervical or axillary lymphadenopathy Results & Data Vital Signs (Past 12 Hours) Vital Signs Temp Pulse Pulse Resp BP Pulse Ox 02/05/19 15:12 36.8 C 78 20 98/59 L 86 L 02/05/19 10:54 36.6 C 75 18 122/69 92 02/05/19 08:00 77 02/05/19 07:15 36.8 C 83 18 144/75 H 93 Laboratory Results Laboratory Tests 02/05/19 02/05/19 05:55 05:55 WBC 7.13 Hgb 11.4 L Plt Count 350 Creatinine 1.61 H Albumin 3.[address] Chest, 02/05/19: IMPRESSION: 1. Small to moderate right pneumothorax and right chest wall emphysema possibly indicating interval thoracentesis as no pneumothorax was evident on the prior radiograph. 2. Large bilateral pleural effusions, which are simple appearing. 3. Extensive associated passive atelectasis. 4. No evidence of pulmonary edema or pneumonia.
--- NOTE | 2019-02-05 17:55 | Billing Data ---
Coding Level of Care Code 87798 Subseq Hosp Care Lvl 2
[2019-02-05] MEDS: ZOLPIDEM TARTRATE 5 MG TAB PO PRN (20:20)
[2019-02-06] MEDS ORDERED: HydrALAZINE HCL 20 MG/ML VIAL IV STA (00:19)
[2019-02-06] MEDS: ONDANSETRON INJ 2 MG/ML 2 ML VIAL IV PRN ×2 (00:59→08:20)
[2019-02-06] MEDS: ACETAMINOPHEN 1,000 MG/100 ML VIAL IV SCH (05:27)
[2019-02-06 07:23] LABS: Basophils # (auto) 0.03 K/uL (0-0.2); Basophils % (auto) 0.4 %; Eosinophils # (auto) 0.13 K/uL (0-0.5); Eosinophils % (auto) 1.8 %; Hematocrit (blood only) 36.5 % (37-47); Hemoglobin 11.5 g/dL (12.0-16.0); Immature Granulocytes # (auto) 0.01 K/uL (0.00-0.02); Immature Granulocytes % (auto) 0.1 %; Lymphocytes # (auto) 1.87 K/uL (1.2-3.4); Lymphocytes % (auto) 26.3 %; Mean Corpuscular Hemoglobin 26.4 pg (25-34); Mean Corpuscular Hgb Conc 31.5 g/dL (32-36); Mean Corpuscular Volume 83.9 fL (80-100); Mean Platelet Volume 9.9 fL (7.4-10.4); Monocytes # (auto) 0.55 K/uL (0.11-0.59); Monocytes % (auto) 7.7 %; Neutrophils # (auto) 4.51 K/uL (1.4-6.5); Neutrophils % (auto) 63.7 %; Platelet Count 350 K/uL (130-400); Red Blood Count 4.35 M/uL (4.2-5.4)
--- NOTE | 2019-02-06 07:41 | XRay Report ---
XR chest 1V portable CLINICAL HISTORY: 78 years-old Female presenting with effusions. TECHNIQUE: Portable upright AP view of the chest was obtained. COMPARISON: 02/05/2019. FINDINGS: Right pleural drain remains position at the posterior costophrenic sulcus. Left subclavian pacer with leads to the right atrium and right ventricular apex. Atherosclerosis of the aortic arch. Cardiac si lhouette may be enlarged though the left heart border is obscured due to the moderate to large left p leural effusion. Dense opacity in the left mid to lower lung with poor aeration of the left lung base . No pneumothorax. Degenerative changes of the thoracic spine. Advanced degenerative changes of the g lenohumeral joints. Suspected osteopenia. Upper abdomen normal. IMPRESSION: 1. Stable appearance of the moderate to large left pleural effusion with underlying left lung consol idation/atelectasis. 2. Right pleural drain unchanged. 3. No demonstrable pneumothorax on the current exam allowing for portable AP technique. Electronically signed by: Abdifatah Goldman M.D. 02/06/2019 7:40 AM
[2019-02-06 07:58] LABS: Albumin Level 2.9 gm/dl (3.4-5.0); BUN Creatinine Ratio 25.8 (10-20); Calcium 8.8 mg/dl (8.5-10.1); Creatinine Clr Calc Pharmacy 20.7 ml/min; Est GFR (African American) 28.9; Est GFR (Non-African American) 24.9; Potassium 5.1 mmol/L (3.5-5.1)
[2019-02-06 08:04] LABS: Albumin Globulin Ratio 0.8 (0.9-2); Bilirubin,Total 0.3 mg/dl (0.2-1); Globulin 3.8 gm/dl (2.5-4.0); Total Protein 6.7 gm/dl (6.4-8.2)
--- NOTE | 2019-02-06 08:53 | Surgery Progress Note ---
Date of Service February 06, 2019 Assessment & Plan (1) Bilateral pleural effusion: -pt. has had a right pleurex inserted on 02/05/19 -pleurex placed to pleur-evac overnight -no air leak noted this morning -CXR show persistent left pleural effusion and marked improvement of the effusion on right -pleurex capped -oncology social worker consulted to arrange home drainage -once home arrangements made can be d/c home -we will see her in office in approx. 1 week with CXR and address left effusion if this persists Subjective Pt. notes her breathing is markedly better this morning. No fevers, shakes, chills. Physical Exam Constitutional: well developed and well nourished; no acute distress Neck: trachea midline Respiratory: normal respiratory effort; no respiratory distress and no labored breathing BS are improved on right when compared to exam yesterday; BS on left are decreased at bases Cardiovascular: Rate/Rhythm: regular rate and regular rhythm Results & Data Vital Signs (Past 12 Hours) Vital Signs Temp Pulse Pulse Resp BP BP Pulse Ox 02/06/19 07:42 72 02/06/19 07:04 36.7 C 80 19 129/74 94 02/06/19 03:30 36.7 C 76 18 122/69 94 02/06/19 01:47 129/62 02/06/19 00:12 36.6 C 70 17 192/81 H 171/86 H 94 PG Care Time/CCT Total # of Minutes Spent Total Time Spent with Patient: Total time spent is greater than 50% in coordination of care (as documented) at patient's floor/unit and/or counseling patient:
[2019-02-06] MEDS: CYANOCOBALAMIN 500 MCG TABLET (VITAMIN B-12) PO SCH ×3 (09:01→20:58)
[2019-02-06] MEDS: ROSUVASTATIN CALCIUM 5 MG TAB PO SCH (09:02)
[2019-02-06] MEDS: CETIRIZINE HCL 10 MG TABLET PO SCH (09:03)
[2019-02-06] MEDS: METOPROLOL SUCC 25MG EXT REL TAB PO SCH ×2 (09:03→20:58)
[2019-02-06] MEDS: ISOSORBIDE MONO EXTENDED REL 60 MG TABCR PO SCH (09:03)
[2019-02-06] MEDS: BUDESONIDE/FORMOTEROL FUMARATE 160/4.5 60 PUFFS/INHALER INH SCH ×2 (09:04→20:58)
[2019-02-06] MEDS: CHOLECALCIFEROL 1,000 UNITS TAB PO SCH (09:04)
[2019-02-06] MEDS: MONTELUKAST SODIUM 10 MG TABLET PO SCH (09:04)
[2019-02-06] MEDS: PANTOprazole 40 MG TAB PO SCH ×2 (10:26→20:58)
--- NOTE | 2019-02-06 11:20 | Hospitalist Progress Note ---
Date of Service February 06, 2019 Assessment & Plan (1) Bilateral pleural effusion: Ms. Knight is an 78yo female with a PMHx significant for Hx of endometrial cancer diagnosed in 2014 (s/p total hysterectomy with bilateral salpingo- oophorectomy, chemotherapy and brachytherapy) with metastatic ascitic recurrence noted in November 2018 and presents currently with SOB secondary to a likely malignant pleural effusion. Also has Hx of HTN, CAD s/p pacemaker placement, asthma and chronic sinusitis. Exertional Dyspnea -likely secondary to bilateral pleural effusions noted on chest XR -on 2L O2 currently; will get 2 step to assess home need. -continue duonebs PRN -Right-sided Pleur-X placement on 02/05/19 for drainage. Bilateral Pleural Effusion -pt presents with dyspnea, mostly exertional -Chest XR-shows bilateral pleural effusions -s/p pleur-X placement on right 02/05/19- fluid drained per lights criteria =exudative -likely malignant, secondary to Hx of endometrial carcinoma now with metastases (see below) -drained on right at [facility] a week ago; cytology with ?GI malignant source- will reconfirm here -will await cytology results -per surgery recs: "once home arrangements made can be d/c home. we will see her in office in approx. 1 week with CXR and address left effusion if this persists" Endometrial Carcinoma with current metastases -Hx of endometrial cancer diagnosed in 2014 (s/p total hysterectomy with bilateral salpingo-oophorectomy, chemotherapy and brachytherapy) -In Nov 2018, noted ascitic metastases (no noted abd masses) with therapeutic paracentesis -Now noted bilateral pleural effusions (as above), likely malignant -Pt scheduled to undergo chemotherapy once more after noted ascites, with port to be placed next week. -Heme-onc (Dr. Hinton who is familiar with pt) consulted, appreciate recs. -continue Vit D, B administration -continue scheduled Tylenol for pain, PRN oxycodone and morphine CAD: continue home isosorbide mononitrate 60mg once daily, crestor 5mg. holding aspirin 81mg given procedure today. HTN: continue home metoprolol succinate 25mg ER Asthma: on duonebs PRN as above, continue home albuterol inhaler PRN, symbicort, singulair and Zyrtec Chronic sinusitis: No complaints currently FEN/GI: Heart healthy DVT Prophylaxis: SCDs, teds CODE Status: Full Supervising Physician Co-Signing Physician Notes I personally examined the patient and verified all mota points of history and exam, discussed case, and agree with decision making with Dr Correa. Feeling okay breathing doing ok no new complaints. d/w thoracic surgery - OK to go and have drained sunday, but pt does need O2 and a little reticent about going with ~48hrs between medical care, understandabily Vitals noted, in general she is awake and alert pleasant no distress. HEENT normocephalic atraumatic mucous membranes are moist. Breathing unlabored no accessory muscle use good effort. Skin shows no rashes no pallor or icterus. Metastatic endometrial cancerit appears that she has diffusely metastatic cancer, her pleural effusions and the ascites that was apparently taken off prior all sounds to be related to her endometrial cancer as the primary. PleurX drainage, set up home O2 and home nursing, anticipate home tomorrow Subjective Pt with some nausea but states she's doing well overall. Pain is well controlled. Now using 2L O2. Denies any headache, changes to vision, cough, runny nose, sore throat, dizziness, weakness, chest pain, SOB, palpitations, abdominal pain, diarrhea or constipation, swelling in hands or feet or numbness or tingling anywhere. Review of Systems Review of Systems: All systems reviewed & are unremarkable except as noted in HPI & below Physical Exam Physical Exam: General: Alert, oriented. No acute distress, laying in bed with NC in nares Skin: No noted rashes or bruises Psych: Appropriate mood and affect Neuro: No gross deficits HEENT: NC/AT, NC in nares Chest: Nontender to palpation. CV: RRR, Normal s1, s2. No murmurs appreciated Resp: Breath sounds clear in upper lobes bilaterally, decreased breath sounds at bases bilaterally. Abdomen: Soft, abdomen nontender, distended. No guarding. No organomegaly appreciated. Extremities: No edema in lower extremities bilaterally. Results & Data Vital Signs (Past 12 Hours) Vital Signs Temp Pulse Pulse Resp BP BP Pulse Ox 02/06/19 10:49 36.5 C 77 18 124/69 94 02/06/19 07:42 72 02/06/19 07:04 36.7 C 80 19 129/74 94 02/06/19 03:30 36.7 C 76 18 122/69 94 02/06/19 01:47 129/62 02/06/19 00:12 36.6 C 70 17 192/81 H 171/86 H 94 Laboratory Results Laboratory Results - last 24 hr 02/05/19 02/05/19 02/05/19 Unknown Unknown Unknown WBC RBC Hgb Hct MCV MCH MCHC RDW Std Deviation RDW Coeff of Hoa Plt Count MPV Immature Gran % (Auto) Neut % (Auto) Lymph % (Auto) Calloway % (Auto) Eos % (Auto) Baso % (Auto) Immature Gran # (Auto) Neut # (Auto) Lymph # (Auto) Calloway # (Auto) Eos # (Auto) Baso # (Auto) Sodium Potassium Chloride Carbon Dioxide Anion Gap BUN Creatinine Est Cr Clr Drug Dosing Est GFR ( Amer) Est GFR (Non-Af Amer) BUN/Creatinine Ratio Glucose Calcium Total Bilirubin AST ALT Alkaline Phosphatase Total Protein Albumin Globulin Albumin/Globulin Ratio Fluid Neutrophils % 93 Fluid Lymphocytes % 4 Fluid Eosinophils % 0 Fluid Meso/Macro/Calloway % 2 Pleural Fluid Source RIGHT LUNG Pleural Color MIKI Pleural Appearance CLOUDY Pleural WBC 1465 Pleural RBC 62225 Pleural Total Protein 4.4 Pleural LDH 229 Pleural Glucose 113 Pleural Amylase 13 Pleural Cholesterol Pending 02/06/19 02/06/19 07:05 07:05 WBC 7.10 RBC 4.35 Hgb 11.5 L Hct 36.5 L MCV 83.9 MCH 26.4 MCHC 31.5 L RDW Std Deviation 43.0 RDW Coeff of Hoa 14.0 Plt Count 350 MPV 9.9 Immature Gran % (Auto) 0.1 Neut % (Auto) 63.7 Lymph % (Auto) 26.3 Calloway % (Auto) 7.7 Eos % (Auto) 1.8 Baso % (Auto) 0.4 Immature Gran # (Auto) 0.01 Neut # (Auto) 4.51 Lymph # (Auto) 1.87 Calloway # (Auto) 0.55 Eos # (Auto) 0.13 Baso # (Auto) 0.03 Sodium 137 Potassium 5.1 D Chloride 104 Carbon Dioxide 26 Anion Gap 8.0 BUN 48 H Creatinine 1.87 H Est Cr Clr Drug Dosing 20.7 Est GFR ( Amer) 28.9 Est GFR (Non-Af Amer) 24.9 BUN/Creatinine Ratio 25.8 H Glucose 118 H Calcium 8.8 Total Bilirubin 0.3 AST 15 ALT 12 Alkaline Phosphatase 59 Total Protein 6.7 Albumin 2.9 L Globulin 3.8 Albumin/Globulin Ratio 0.8 L Fluid Neutrophils % Fluid Lymphocytes % Fluid Eosinophils % Fluid Meso/Macro/Calloway % Pleural Fluid Source Pleural Color Pleural Appearance Pleural WBC Pleural RBC Pleural Total Protein Pleural LDH Pleural Glucose Pleural Amylase Pleural Cholesterol Medications Administered Home Medications albuterol sulfate 90 mcg/actuation aerosol inhaler INHALATION .INHALE 2 PUFFS EVERY #3 gm 11/18/18 [History Confirmed 02/04/19] aspirin 81 mg tablet PO .TAKE 1 TABLET DAILY. tab 11/18/18 [History Confirmed 02/04/19] cyanocobalamin (vitamin B-12) 500 mcg disintegrating tablet,sublingual SL .TAKE 1 TABLET 3 TIME tab 11/18/18 [History Confirmed 02/04/19] ergocalciferol (vitamin D2) 50,000 unit capsule PO .TAKE 1 CAPSULE WEEKL #4 cap 11/18/18 [History Confirmed 02/04/19] ipratropium-albuterol 0.5 mg-3 mg(2.5 mg base)/3 mL nebulization soln INHALATION .USE 1 UNIT DOSE IN N #6 ml 11/18/18 [History Confirmed 02/04/19] isosorbide mononitrate 60 mg tablet,extended release 24 hr PO .TAKE 1 TABLET ONCE D tab 11/18/18 [History Confirmed 02/04/19] metoprolol succinate 25 mg tablet,extended release 24 hr PO .TAKE ONE TABLET BY M tab 11/18/18 [History Confirmed 02/04/19] nitroglycerin 0.4 mg sublingual tablet SL .PLACE 1 TABLET UNDER tab 11/18/18 [History Confirmed 02/04/19] omeprazole 20 mg capsule,delayed release 1 PO .TAKE 1 CAPSULE Daily cap 11/18/18 [History Confirmed 02/04/19] rosuvastatin 5 mg tablet PO .TAKE 1 TABLET DAILY. #30 tab 11/18/18 [History Confirmed 02/04/19] nebulizers #1 ea 11/19/18 [Rx Confirmed 02/04/19] cetirizine 10 mg tablet 10 mg PO DAILY #90 tab 12/10/18 [Rx Confirmed 02/04/19] montelukast 10 mg tablet 10 mg PO DAILY #90 tab 01/01/19 [Rx Confirmed 02/04/19] levofloxacin 500 mg tablet 500 mg PO DAILY #14 tab 02/04/19 [Rx Confirmed 02/04/19] prednisone 10 mg tablet See Rx Instructions PO DAILY #20 tab 02/04/19 [Rx Confirmed 02/04/19] Active Medications Acetaminophen (Tylenol) 650 mg PO Q4H PRN PRN Reason: Pain or Fever Stop: 03/06/19 20:28 Al Hydrox/Mg Hydrox/Simethicone (Maalox) 15 ml PO Q4H PRN PRN Reason: Dyspepsia Stop: 03/06/19 20:28 Last Admin: 02/05/19 20:18 Dose: 15 ml Documented by: Albuterol (Ventolin Hfa) 2 puffs INH Q6H PRN PRN Reason: Shortness Of Breath Or Wheezing Stop: 03/06/19 20:28 Albuterol (Duoneb) 3 ml INH Q6H PRN PRN Reason: Shortness Of Breath Or Wheezing Stop: 03/06/19 20:28 Aspirin (Ecotrin Ectab) 81 mg PO DAILY [facility] Stop: 03/07/19 08:59 Budesonide/Formoterol Fumarate (Symbicort 160mcg/4.5mcg) 2 puffs INH BID [facility] Stop: 03/06/19 20:59 Last Admin: 02/06/19 09:04 Dose: 2 puffs Documented by: Cetirizine HCl (Zyrtec) 10 mg PO DAILY [facility] Stop: 03/07/19 08:59 Last Admin: 02/06/19 09:03 Dose: 10 mg Documented by: Cyanocobalamin (Vitamin B-12) 1,000 mcg PO TID [facility] Stop: 03/06/19 20:59 Last Admin: 02/06/19 09:01 Dose: 1,000 mcg Documented by: Isosorbide Mononitrate (Imdur Extended Rel) 60 mg PO DAILY [facility] Stop: 03/07/19 08:59 Last Admin: 02/06/19 09:03 Dose: 60 mg Documented by: Magnesium Hydroxide (Milk Of Magnesia) 30 ml PO Q12H PRN PRN Reason: Constipation Stop: 03/06/19 20:28 Metoprolol Succinate (Toprol Xl) 25 mg PO BID [facility] Stop: 03/06/19 20:59 Last Admin: 02/06/19 09:03 Dose: 25 mg Documented by: Montelukast Sodium (Singulair) 10 mg PO DAILY ROSMERY Stop: 03/07/19 08:59 Last Admin: 02/06/19 09:04 Dose: 10 mg Documented by: Morphine Sulfate (Morphine Sulfate) 2 mg IV Q4H PRN PRN Reason: Pain Stop: 02/19/19 12:38 Ondansetron HCl (Zofran) 4 mg IV Q6H PRN PRN Reason: Nausea Stop: 03/06/19 20:28 Last Admin: 02/06/19 08:20 Dose: 4 mg Documented by: Oxycodone HCl (Roxicodone Immediate Rel) 5 mg PO Q6H PRN PRN Reason: Pain Stop: 02/19/19 12:38 Pantoprazole Sodium (Protonix) 40 mg PO BID ROSMERY Stop: 03/08/19 09:14 Last Admin: 02/06/19 10:26 Dose: 40 mg Documented by: Polyethylene Glycol (Miralax Powder Packet) 17 gm PO DAILY PRN PRN Reason: Constipation Stop: 03/06/19 20:28 Rosuvastatin Calcium (Crestor) 5 mg PO DAILY ROSMERY Stop: 03/07/19 08:59 Last Admin: 02/06/19 09:02 Dose: 5 mg Documented by: Vitamin D (Vitamin D3) 1,000 units PO QAM ROSMERY Stop: 03/07/19 08:59 Last Admin: 02/06/19 09:04 Dose: 1,000 units Documented by: Zolpidem Tartrate (Ambien) 2.5 mg PO HS PRN PRN Reason: Sleep Stop: 03/06/19 20:28 Last Admin: 02/05/19 20:20 Dose: 2.5 mg Documented by: Resident Activity Tracking Resident Involvement: Resident Care Provided Care Provided: Adult Hospital Medicine
--- NOTE | 2019-02-06 15:49 | Billing Data ---
Coding Level of Care Code 56521 Subseq Hosp Care Lvl 2
[2019-02-06] MEDS: ZOLPIDEM TARTRATE 5 MG TAB PO PRN (21:01)
[2019-02-07 06:34] LABS: Basophils # (auto) 0.03 K/uL (0-0.2); Basophils % (auto) 0.4 %; Eosinophils # (auto) 0.43 K/uL (0-0.5); Eosinophils % (auto) 5.8 %; Hematocrit (blood only) 37.4 % (37-47); Hemoglobin 11.8 g/dL (12.0-16.0); Immature Granulocytes # (auto) 0.01 K/uL (0.00-0.02); Immature Granulocytes % (auto) 0.1 %; Lymphocytes # (auto) 2.19 K/uL (1.2-3.4); Lymphocytes % (auto) 29.7 %; Mean Corpuscular Hemoglobin 26.5 pg (25-34); Mean Corpuscular Hgb Conc 31.6 g/dL (32-36); Mean Corpuscular Volume 83.9 fL (80-100); Mean Platelet Volume 10.4 fL (7.4-10.4); Monocytes % (auto) 6.8 %; Neutrophils # (auto) 4.21 K/uL (1.4-6.5); Neutrophils % (auto) 57.2 %; Platelet Count 365 K/uL (130-400); RDW Standard Deviation 42.6 fL (36.4-46.3); Red Blood Count 4.46 M/uL (4.2-5.4); White Blood Count 7.37 K/uL (4.8-10.8)
[2019-02-07 07:07] LABS: Albumin Level 2.9 gm/dl (3.4-5.0); BUN Creatinine Ratio 24.4 (10-20); Creatinine Clr Calc Pharmacy 18.5 ml/min; Est GFR (African American) 25.3; Est GFR (Non-African American) 21.8; Potassium 4.9 mmol/L (3.5-5.1)
--- NOTE | 2019-02-07 07:08 | XRay Report ---
SINGLE VIEW CHEST CLINICAL HISTORY: Pleural effusion. FINDINGS: An AP, portable, upright chest radiograph is compared to study dated 02/06/2019 and correla alberto with chest CT dictated 02/05/2019. The examination is degraded by portable technique and patient rotation. A 2-lead cardiac pacemaker is unchanged in position and partially obscures the left mid pam st. The heart is top normal for projection noting atherosclerotic calcification of the thoracic aorta . Mild pulmonary vascular congestion persists. A pleural drain and right lung base is unchanged in po sition. There is a trace residual right pleural effusion with associated right basilar atelectasis. T here is a moderate to large left pleural effusion with associated consolidation. No pneumothorax is s een. The skeletal structures are osteopenic. The bony thorax is grossly intact. Degenerative change i s noted in the shoulders and thoracic spine. IMPRESSION: 1. A pleural drain at the right lung base is unchanged in position. There is a trace residual right p leural effusion. 2. A moderate to large left pleural effusion with associated consolidation is also unchanged. 3. No pneumothorax is identified. 4. Cardiac pacemaker. Mild pulmonary vascular congestion persists. Electronically signed by: Olu Garcia M.D. 02/07/2019 7:06 AM
[2019-02-07 07:09] LABS: Albumin Globulin Ratio 0.8 (0.9-2); Bilirubin,Total 0.4 mg/dl (0.2-1); Globulin 3.8 gm/dl (2.5-4.0); Total Protein 6.7 gm/dl (6.4-8.2)
--- NOTE | 2019-02-07 08:10 | Surgery Progress Note ---
Date of Service February 07, 2019 Assessment & Plan (1) Bilateral pleural effusion: -pt. has had a right pleurex inserted on 02/05/19 -minimal drainage noted this am -CXR shows almost no fluid on right; pleural effusion on left persists -pt. may be d/c once oxygen and HHN arranged -if she remains in hospital, Dr. Irby will consider draining left side upon his return tomorrow, otherwise we will follow up with serial CXR as outpt. Subjective Pt. notes her breathing has improved considerably since pleurex placed. No CP. No fevers, shakes, chills. Physical Exam Constitutional: well developed and well nourished; no acute distress Neck: trachea midline Respiratory: normal respiratory effort; no respiratory distress and no labored breathing BS decreased on left; good air movement on right Results & Data Vital Signs (Past 12 Hours) Vital Signs Temp Pulse Pulse Resp BP BP Pulse Ox 02/07/19 07:39 36.9 C 77 19 112/68 91 02/06/19 22:59 36.7 C 74 16 145/81 H 94 02/06/19 20:56 80 135/71 PG Care Time/CCT Total # of Minutes Spent Total Time Spent with Patient: Total time spent is greater than 50% in coordination of care (as documented) at patient's floor/unit and/or counseling patient:
[2019-02-07] MEDS: MONTELUKAST SODIUM 10 MG TABLET PO SCH (08:29)
[2019-02-07] MEDS: ROSUVASTATIN CALCIUM 5 MG TAB PO SCH (08:30)
[2019-02-07] MEDS: METOPROLOL SUCC 25MG EXT REL TAB PO SCH (08:31)
[2019-02-07] MEDS: CHOLECALCIFEROL 1,000 UNITS TAB PO SCH (08:31)
[2019-02-07] MEDS: PANTOprazole 40 MG TAB PO SCH (08:31)
[2019-02-07] MEDS: CETIRIZINE HCL 10 MG TABLET PO SCH (08:31)
[2019-02-07] MEDS: ISOSORBIDE MONO EXTENDED REL 60 MG TABCR PO SCH (08:32)
[2019-02-07] MEDS: CYANOCOBALAMIN 500 MCG TABLET (VITAMIN B-12) PO SCH ×2 (08:32→13:34)
[2019-02-07] MEDS: BUDESONIDE/FORMOTEROL FUMARATE 160/4.5 60 PUFFS/INHALER INH SCH (08:32)
--- NOTE | 2019-02-07 10:48 | Discharge Summary ---
Date of Service February 07, 2019 Admission HPI Per Admitting Provider 78 years old female with past medical history of endometrial cancer which was removed to gather with ovaries in 2014 sent from her PCP Suzan Taran at [facility] in [place] where she was for follow-up, evaluation for bilateral pleural effusion with suspicion of metastatic pleural effusion. Patient reports being very short of breath in the past month. Patient recently had a thoracocentesis of the right lung and 1000 mils was removed from her right pleural effusion. Apparently there were found atypical cells in the fluid and diagnosed with a gastro-intestinal cancer. She is followed by hematology oncology. Patient said he did not find any saying on her left side. She continues to be short of breath and have discomfort with these inhalation. Patient denies fever, chills, chest pain, shortness of breath, abdominal pain, frequency, urgency. Labs are pending:, Chest x-ray is pending, at [facility] chest x-ray shows bilateral pleural effusion. Decision was made to admit patient to the PCU on telemetry for further evaluation and treatment of shortness of breath. Admission Exam Per Admitting Provider Constitutional: WD/WN, vitals as above well developed and + ill appearing Pacemaker left chest. Eyes: PERRL, conjunctivae normal, anicteric sclerae ENMT: external ear and nose normal, oropharynx normal Neck: trachea midline, no thyromegaly Respiratory: Auscultation: + diminished lung sounds, + crackles and + wheezes Cardiovascular: RRR, no murmur, no edema Gastrointestinal (Abdomen): normal bowel sounds, soft, nontender, no hepatosplenomegaly Musculoskeletal: no cyanosis or clubbing, extremities motor strength 5/5 Skin: no rashes, warm and dry Neurologic: patellar DTR's 2+ bilat, sensation intact Psychiatric: A+Ox3, euthymic affect Lymphatic: no cervical or axillary lymphadenopathy Principal Diagnosis Bilateral Pleural effusions Endometrial carcinoma Discharge Exam General: Alert, oriented. No acute distress, laying in bed with NC in nares Skin: No noted rashes or bruises Psych: Appropriate mood and affect Neuro: No gross deficits HEENT: NC/AT, NC in nares Chest: Nontender to palpation. CV: RRR, Normal s1, s2. No murmurs appreciated Resp: Breath sounds clear in upper lobes bilaterally, decreased breath sounds at bases bilaterally. Abdomen: Soft, abdomen nontender, distended. No guarding. No organomegaly appreciated. Extremities: No edema in lower extremities bilaterally. Discharge Data Allergies Allergy/AdvReac Type Severity Reaction Status Date / Time animal dander Allergy Unknown Verified 02/04/19 11:59 grass pollen Allergy Unknown Verified 02/04/19 11:59 Consultations 02/04/19 20:29 Consult Thoracic Surgery Routine 02/04/19 20:48 Consult Hematology Routine 02/06/19 08:06 Consult Case Management - Discharge Planning Routine Ordered Studies 02/05/19 09:28 CT chest wo con Stat Hospital Course (1) Bilateral pleural effusion: Ms. Knight is an 78yo female with a PMHx significant for Hx of endometrial cancer diagnosed in 2014 (s/p total hysterectomy with bilateral salpingo- oophorectomy, chemotherapy and brachytherapy) with metastatic ascitic recurrence noted in November 2018 and presents currently with SOB secondary to a likely malignant pleural effusion. Also has Hx of HTN, CAD s/p pacemaker placement, asthma and chronic sinusitis. Admitted on Feb 04, 2019 and discharged on Feb 07 2019. Exertional Dyspnea -likely secondary to bilateral pleural effusions noted on chest XR on admission -was on 2L O2 during hospital stay; however did not qualify for home oxygen on 02/07 -continue duonebs PRN -Right-sided Pleur-X placement on 02/05/19 for drainage (see below) Bilateral Pleural Effusion -pt presents with dyspnea, mostly exertional -Chest XR-showed bilateral pleural effusions -s/p pleur-X placement on right 02/05/19- fluid drained per lights criteria =exudative -likely malignant, secondary to Hx of endometrial carcinoma now with metastases (see below) -drained on right at [facility] a week ago; cytology with ?GI malignant source- will reconfirm here -awaiting cytology results on discharge -on discharge, right sided lung with very little effusion likely accounting for no need for home oxygen; pcp advised to closely monitor for need for home oxygen. -Pt has followup appointment with surgery on Feb 11 with chest XR to be done before. Endometrial Carcinoma with current metastases -Hx of endometrial cancer diagnosed in 2014 (s/p total hysterectomy with bilate ral salpingo-oophorectomy, chemotherapy and brachytherapy) -In Nov 2018, noted ascitic metastases (no noted abd masses) with therapeutic paracentesis -Now noted bilateral pleural effusions (as above), likely malignant -Pt scheduled to undergo chemotherapy once more after noted ascites, with port to be placed next week. -Heme-onc (Dr. Hinton who is familiar with pt) consulted, appreciate recs. He will continue with plan for chemotherapy. -continue Vit D, B administration - scheduled Tylenol for pain, PRN oxycodone and morphine while hospitalized. Discharged with prescription for oxycodone 5mg for pain. CAD: continue home isosorbide mononitrate 60mg once daily, crestor 5mg, aspirin 81mg. HTN: continue home metoprolol succinate 25mg ER Asthma: continue home albuterol inhaler PRN, symbicort, singulair and Zyrtec Chronic sinusitis: No complaints currently Total Time Total Time Spent Total Time Spent (In Minutes): <30 Discharge Plan Discharge Items Patient Disposition: Home - Home Health Services Reason For Visit: BILATERAL EFFUSION, SOB Discharge Diagnosis: Pleural Effusions Dyspnea Activity: Per Instructions section Non-emergency contact: Primary Care Provider, Surgeon and Oncologist Call non-emergency contact if: you have any medication questions, your symptoms worsen and you have a fever Follow-up/Referrals: Sree Guzman MD [Primary Care Provider] - (Please, follow up with Dr. Sree Guzman within a week of discharge from the hospital. *I tried to schedule an appointment for you with Dr. Guzman, but his office is closed today. I will call you on Sunday and will be glad to help you schedule an tonya ointment, if you like. If you would prefer to schedule the appointment, the office phone number is [phone].) Diet: Regular Addtl Attending Provider Instructions: Ms. Knight, you were admitted and had drainage of your pleural effusion on the right side which was making it hard for you to breathe. You have home health services to help with the device that surgery put in to help with the drainage of your pleural effusions; please continue to work with your surgical team for that. Please take the oxycodone prescribed for pain as needed. Followup with your primary care doctor if you need additional pain relief. You can also take over the counter Tylenol to help with the pain as well. Please keep your followup appointment with your surgeon (Dr. Irby and his equal opportunity assistant Osmel) on SundayFeb 11 as discussed. Please come to the hospital to have your xray done before that appointment. Please also keep your followup appointment with your oncologist Dr. Hinton. Should your symptoms return or worsen, please seek medical care again. It was a pleasure taking care of you during your stay here! Pending Studies at Discharge: Yes Stand-Alone Forms: My [facility] [place], Smoking Cessation Medications and DC Order Prescriptions: New oxycodone 5 mg capsule 5 mg PO Q6H PRN (Reason: pain) Qty: 10 RF: 0 Continued cetirizine 10 mg tablet 10 mg PO DAILY Qty: 90 RF: 1 montelukast 10 mg tablet 10 mg PO DAILY Qty: 90 RF: 1 cyanocobalamin (vitamin B-12) 500 mcg tablet,disintegrating SL .TAKE 1 TABLET 3 TIME RF: 0 aspirin 81 mg tablet PO .TAKE 1 TABLET DAILY. RF: 0 omeprazole 20 mg capsule,delayed release(DR/EC) 1 PO .TAKE 1 CAPSULE Daily RF: 0 nitroglycerin 0.4 mg tablet, sublingual SL .PLACE 1 TABLET UNDER RF: 0 isosorbide mononitrate 60 mg tablet extended release 24 hr PO .TAKE 1 TABLET ONCE D RF: 0 ipratropium-albuterol 0.5 mg-3 mg(2.5 mg base)/3 mL solution for nebulization inhalation .USE 1 UNIT DOSE IN N Qty: 6 RF: 0 ergocalciferol (vitamin D2) 50,000 unit capsule PO .TAKE 1 CAPSULE WEEKL Qty: 4 RF: 0 rosuvastatin 5 mg tablet PO .TAKE 1 TABLET DAILY. Qty: 30 RF: 0 albuterol sulfate 90 mcg/actuation HFA aerosol inhaler inhalation .INHALE 2 PUFFS EVERY Qty: 3 RF: 0 metoprolol succinate 25 mg tablet extended release 24 hr PO .TAKE ONE TABLET BY M RF: 0 (DME) [place] [facility] [place] Dose Instructions [id number] .MEDSUPPLY Qty: 1 RF: 0 levofloxacin [Levaquin] 500 mg tablet 500 mg PO DAILY Qty: 14 RF: 0 prednisone 10 mg tablet See Rx Instructions PO DAILY Qty: 20 RF: 0 Discharge Orders: Discharge Order (Routine); Ordered 02/07/19 Ordered By: Martina Matta/Other Patient Handouts: Effusion Pleural Admission Data Admit Date/Time: 02/04/19 18:25 Attending Provider: Shahriar Narvaez Admit Provider: Simin Saravia Primary Care Provider: Sree Guzman Other Providers: Simin Saravia ; [facility] ; Favio Irby ; Darci Hinton Other Interventions: Discharge Summary Assessment (RN) Last Done: 02/07/19 13:33 DC Date/Time DO NOT enter until pt leaves facility: 02/07/19 14:34 Supervising Physician Co-Signing Physician Notes I personally examined the patient and verified all mota points of history and exam, discussed case, and agree with decision making with Dr Correa. feeling good, when i enter the room she asks "when am i going home?" did better than expected on 2-step and does not need O2! no other new complaints Vitals noted, in general she is awake and alert pleasant no distress. HEENT normocephalic atraumatic mucous membranes are moist. Breathing unlabored no accessory muscle use good effort. Skin shows no rashes no pallor or icterus. Metastatic endometrial cancerit appears that she has diffusely metastatic cancer, her pleural effusions and the ascites that was apparently taken off prior all sounds to be related to her endometrial cancer as the primary. PleurX drainage, home nursing, stable for home elevated creatinine - uncertain baseline, Cr higher than at admit but could easily be explained by fluid shifting w pleurX drainage; eGFR only 6ml/min different than on admission so not alarming - will ask outpt BMP and PCP/pulm f/u to follow (and PCP will have baseline Cr) stable for home Resident Activity Tracking Resident Involvement: Resident Care Provided Care Provided: Adult Hospital Medicine
--- NOTE | 2019-02-07 14:44 | Billing Data ---
Coding Level of Care Code D/C Day Management <30 mins
== END 2019-02-07 14:34 | disposition home health service (06) | DRG 755 ==
LOC: 2E 18:25 → SUATTDRO 18:25 → 3W 02-06 11:17

== ENCOUNTER 2019-03-23 21:17 | Inpatient (IN) ==
[2019-03-23 22:07] LABS: Basophils # (auto) 0.01 K/uL (0-0.2); Basophils % (auto) 0.3 %; Eosinophils # (auto) 0.06 K/uL (0-0.5); Eosinophils % (auto) 1.6 %; Hematocrit (blood only) 25.9 % (37-47); Hemoglobin 8.1 g/dL (12.0-16.0); Immature Granulocytes # (auto) 0.01 K/uL (0.00-0.02); Immature Granulocytes % (auto) 0.3 %; Lymphocytes # (auto) 0.54 K/uL (1.2-3.4); Lymphocytes % (auto) 14.8 %; Mean Corpuscular Hemoglobin 26.2 pg (25-34); Mean Corpuscular Hgb Conc 31.3 g/dL (32-36); Mean Corpuscular Volume 83.8 fL (80-100); Mean Platelet Volume 10.1 fL (7.4-10.4); Monocytes # (auto) 0.13 K/uL (0.11-0.59); Monocytes % (auto) 3.6 %; Neutrophils # (auto) 2.91 K/uL (1.4-6.5); Neutrophils % (auto) 79.4 %; Platelet Count 207 K/uL (130-400); RDW Coefficient of Variation 19.5 % (11.5-14.5); RDW Standard Deviation 58.8 fL (36.4-46.3); Red Blood Count 3.09 M/uL (4.2-5.4); White Blood Count 3.66 K/uL (4.8-10.8)
[2019-03-23 22:18] LABS: INR 1.2 (0.9-1.1); Partial Thromboplastin Ratio 0.9; Partial Thromboplastin Time 24.7 Seconds (21.0-31.0); Prothrombin Time 11.7 Seconds (9.0-12.0)
[2019-03-23 22:26] LABS: Alanine Aminotransferase 12 U/L (12-78); Albumin Level 2.6 gm/dl (3.4-5.0); Aspartate Aminotransferase 18 U/L (15-37); BUN Creatinine Ratio 22.6 (10-20); Bilirubin Direct < 0.1 mg/dl (0-0.2); Blood Urea Nitrogen 35 mg/dl (7-18); Calcium 8.4 mg/dl (8.5-10.1); Carbon Dioxide 20 mmol/L (21-32); Chloride 112 mmol/L (98-107); Creatinine Clr Calc Pharmacy 25.1 ml/min; Est GFR (African American) 36.3; Est GFR (Non-African American) 31.3; Glucose 163 mg/dl (70-99); Lipase 120 U/L (73-393); Magnesium 1.3 mg/dl (1.8-2.4); Potassium 4.6 mmol/L (3.5-5.1); Sodium 141 mmol/L (136-145)
[2019-03-23 22:28] LABS: Influenza A virus by PCR Neg for Influ A (Neg); Influenza B virus by PCR Neg for Influ B (Neg)
[2019-03-23 22:29] LABS: Base Excess VBG -7.7 mEq/L; HCO3 VBG 19 mmol/L; Oxygen Saturation VBG < 60.0 %; PCO2 VBG 44 mmHg (38-50); PO2 VBG 28 mmHg; pH VBG 7.25 (7.36-7.41)
[2019-03-23 22:31] LABS: Alkaline Phosphatase 63 U/L (45-117); Bilirubin,Total 0.2 mg/dl (0.2-1); NT Pro B Type Natriuretic Pept 3377 pg/ml (0-1800); Total Protein 5.9 gm/dl (6.4-8.2); Troponin I < 0.015 ng/ml (0-0.045)
--- NOTE | 2019-03-23 22:45 | XRay Report ---
XR chest 1V portable CLINICAL HISTORY: Shortness of breath COMPARISON STUDY: 03/07/2019 FINDINGS: The cardiac and mediastinal contours remain stable. There is a right-sided A-Port catheter. There is a left subclavian dual-chamber central venous pacemaker. There is slight interval decrease in size of a left pleural effusion. There is persistent associated left lower lobe atelectasis/consol idation. There is a small subpulmonic right pleural effusion. There is mild pulmonary vascular conges tion.[ IMPRESSION: 1. Radiographic evidence of mild pulmonary vascular congestion 2. Slight interval decrease in the size of the left pleural effusion, with persistent associated left basilar atelectasis/consolidation 3. Small subpulmonic right pleural effusion ACT 112: Negative or not required by law. Electronically signed by: Enrrique Patiño M.D. 03/23/2019 10:44 PM
[2019-03-23 23:37] LABS: Appearance Urine Cloudy (Clear); Bilirubin Urine Negative (Negative); Blood Urine Negative (Negative); Color Urine Dark Yellow; Epithelial Cell Urine Auto >30 /lpf (0-5); Glucose Urine UA Negative (Negative); Ketones Urine Trace (Negative); Leukocyte Esterase Urine 1+ (Negative); Nitrite Urine Negative (Negative); Protein Urine 1+ (Negative); Specific Gravity Urine 1.024 (1.000-1.030); Urobilinogen Urine Negative (Negative)
--- NOTE | 2019-03-23 23:37 | Emergency Department Note ---
Entered by Olga Gaviria acting as a scribe for History of Present Illness General Chief complaint: Leg Weakness, Bilateral Stated complaint: WEAKNESS, Time Seen by Provider: 03/23/19 21:22 Source: patient History of Present Illness Onset (ago): day(s) 1 Location: lower extremity, left and right Pain Consistency: + constant Relieved By: + none Exacerbated By: + movement Associated symptoms: + fever/chills (denies fever) and + weakness; no chest pain, no nausea/vomiting and no shortness of breath The patient is a 78 year old female who presents to the Emergency Room with complaints of bilateral leg weakness that started today. She denies fever, but complains of chills. The patient does not wear oxygen all the time, but she was at 85% at home and 88% on the way to the hospital. The patient denies nausea, vomiting, fevers, chest pain, and trouble sleeping. The patient takes baby Aspirin regularly. She is also currently on chemotherapy and believes it may be causing some of her symptoms. Her last chemo treatment was 4 days ago. She denies recent trauma or falls. The patient notes that her pain is exacerbated with movement. Home Medications Home Medications Medication Instructions Recorded Confirmed Type albuterol sulfate 90 mcg/actuation 2 inh INHALATION .INHALE 2 PUFFS 11/18/18 03/23/19 History aerosol inhaler EVERY PRN #3 gm cyanocobalamin (vitamin B-12) 500 500 mcg PO 3XWK tab 11/18/18 03/23/19 History mcg disintegrating tablet,sublingual ergocalciferol (vitamin D2) 1,250 50,000 unit PO DAILY #4 cap 11/18/18 03/23/19 History mcg (50,000 unit) capsule ipratropium 0.5 mg-albuterol 3 mg 3 ml INHALATION DAILY PRN #6 ml 11/18/18 03/23/19 History (2.5 mg base)/3 mL nebulization soln isosorbide mononitrate 60 mg 60 mg PO DAILY tab 11/18/18 03/23/19 History tablet,extended release 24 hr metoprolol succinate 25 mg 25 mg PO BID tab 11/18/18 03/23/19 History tablet,extended release 24 hr nitroglycerin 0.4 mg sublingual 0.4 mg SL DIRECTED PRN tab 11/18/18 03/23/19 History tablet omeprazole 20 mg capsule,delayed 20 mg PO DAILY cap 11/18/18 03/23/19 History release rosuvastatin 5 mg tablet 5 mg PO DAILY #30 tab 11/18/18 03/23/19 History montelukast 10 mg tablet 10 mg PO DAILY #90 tab 01/01/19 03/23/19 Rx cetirizine [Zyrtec] 10 mg PO DAILY 02/14/19 03/23/19 History amlodipine 2.5 mg PO DAILY 03/23/19 03/23/19 History aspirin [Aspir-81] 81 mg PO DAILY 03/23/19 03/23/19 History Allergies Allergy/AdvReac Type Severity Reaction Status Date / Time animal dander Allergy Intermediate SNEEZING, Verified 03/23/19 22:06 CONGESTION grass pollen Allergy Intermediate SNEEZING, Verified 03/23/19 22:06 CONGESTION Past Med/Surg History Medical History Arthritis (Acute) Cancer (Acute) uterine, endometrial, abdominal cancer DVT (deep venous thrombosis) (Acute) High cholesterol (Acute) History of cataract (Acute) Hypertension (Acute) Pacemaker (Acute) Surgical History History of (Acute) x3 History of carpal tunnel surgery (Acute) right hand History of hip replacement (Acute) right History of hysterectomy for cancer (Acute) History of knee replacement (Acute) b/l knees History of tonsillectomy (Acute) History of uvulectomy (Acute) Social History Preferred Language: [place] Communication Ability: Effective Data Analytics Architect Required: No Beliefs That Will Affect Care: None Current Living Situation: Spouse Feels Safe at Home: Yes Smoking Status: Never smoker Second Hand Exposure: No ; Hx Alcohol Use: No Hx Substance Use: No Review of Systems See HPI for pertinent positives & negatives. and A total of 10 systems reviewed and were otherwise negative Physical Exam Vital Signs Vital Signs - 24 hr 03/23/19 21:24 03/23/19 21:53 03/23/19 22:35 Temperature 36.7 C Temperature Source Oral Pulse Rate 88 Pulse Rate [Apical] 79 Respiratory Rate 18 22 Respiratory Effort / Characteristics Non-Labored Spontaneous Respiratory Depth Normal Respiratory Pattern Regular Blood Pressure 133/80 Blood Pressure [Left Arm] 127/72 Blood Pressure Mean 97 Blood Pressure Mean [Left Arm] 90 Blood Pressure Position Semi-fowlers Blood Pressure Position [Left Arm] Sitting Pulse Oximetry 88 L 97 96 Oxygen Delivery Method Room Air Nasal Cannula Nasal Cannula Oxygen Flow Rate 2 2 Sepsis Recent Fever Within 48 Hours No Sepsis New/Unexplained Change in Mental Status No Sepsis Action Taken by Nursing No Action Required 03/23/19 23:00 Temperature Temperature Source Pulse Rate Pulse Rate [Apical] 79 Respiratory Rate 22 Respiratory Effort / Characteristics Respiratory Depth Respiratory Pattern Blood Pressure Blood Pressure [Left Arm] 110/56 L Blood Pressure Mean Blood Pressure Mean [Left Arm] 74 Blood Pressure Position Blood Pressure Position [Left Arm] Sitting Pulse Oximetry 96 Oxygen Delivery Method Nasal Cannula Oxygen Flow Rate 2 Sepsis Recent Fever Within 48 Hours Sepsis New/Unexplained Change in Mental Status Sepsis Action Taken by Nursing GENERAL: She is oriented to person, place, and time. She appears well-developed and well-nourished. She does not appear distressed. HENT: Exam performed. Head: Normocephalic and atraumatic. Right Ear: External ear normal. No mastoid tenderness. Left Ear: External ear normal. No mastoid tenderness. Mouth/Throat: The oropharynx is clear and moist. No trismus in the jaw. No dental abscesses or uvula swelling. No oropharyngeal exudate or tonsillar abscesses. EYES: Conjunctivae and EOM are normal. Pupils are equal, round, and reactive to light. Right eye exhibits no discharge. Left eye exhibits no discharge. No scleral icterus. NECK: Normal range of motion. Neck supple. No JVD present. No spinous process tenderness present. No carotid bruit present. No rigidity. No tracheal deviation and normal range of motion present. No Brudzinski's sign and no Kernig's sign noted. CV: Normal rate, regular rhythm, normal heart sounds and intact distal pulses. 4+ pitting edema of bilateral lower extremities.. Palpable radial pulses bue. PULM/CHEST: Rales at bases bilaterally, diminished breath sounds bilaterally. Chest Wall: She exhibits no tenderness. ABD: The abdomen is soft. Bowel sounds are normal. She has no distension. No mass is present. There is no tenderness. There is no rebound, no guarding, no Arzola's sign and no tenderness at McBurney's point. Rovsig negative. No fluid wave. MUSC/SKEL: 4+ pitting edema of bilateral lower extremities. LYMPH: No cervical adenopathy. NEURO: She is alert and oriented to person, place, and time. She has normal strength. No cranial nerve deficit or sensory deficit. Coordination and gait normal. GCS eye subscore is 4. GCS verbal subscore is 5. GCS motor subscore is 6. cerbellar tests wnl. SKIN: Skin is warm and dry. She is not diaphoretic. PSYCH: She has a normal mood and affect. Her behavior is normal. Judgment and thought content normal. Course Course 2122: Past medical records reviewed. The patient was evaluated in room A09B. A complete history and physical exam was performed.The patient has history of endometrial cancer since 2014. She has history of Metastatic pleural effusions. She is on chemotherapy. She also has a history of metastatic ascites. The pat ient was found to be hypoxic on room air. She started on 2 L nasal cannula which immediately improved her oxygen saturation. 2133: Bedside ultrasound showed trace ascites with no large drainable fluid collection. 2310: Vital signs stable on 2 L oxygen via nasal cannula. Labs within normal limits with exception of a magnesium of 1.3 and proBNP of 3377. Flu negative. Chest x-ray showed bilateral pleural effusions. Magnesium will be replaced in the emergency department. No Lasix at this time given it is unclear if the patient's pleural effusions are due to the metastatic pleural effusions she has had in the past or due to cardiac reasons such as CHF. I spoke to Dr. Branham, [facility] hospitalist, who agreed to take over care of the patient. The patient is agreeable to the treatment plan and will stay for further evaluation. Critical Care Time Critical Care Time: Yes Total Critical Care Time: 40 I have personally spent 40 minutes of critical care time in the direct management of this patient. This includes bedside care, interpretation of diagnostic studies, and testing, discussion with consultants, patient, and family members, and other required patient management activities. This 40 minutes is in excess of all separately billable procedures. Medical Decision Making Medical Records Attestation: I reviewed the patient's medical records. The patient has had endometrial cancer since 2014. Metastatic pleural effusions. She is on chemotherapy. She has a history of metastatic ascites. Home Medications Current Medication List: was personally reviewed by me Laboratory Data Attestation: I reviewed the patient's lab results. Result diagrams: 03/23/19 21:57 03/23/19 21:57 Lab Results 03/23/19 03/23/19 03/23/19 Range/Units 21:40 21:57 21:57 WBC 3.66 L (4.8-10.8) K/uL RBC 3.09 L (4.2-5.4) M/uL Hgb 8.1 L (12.0-16.0) g/dL Hct 25.9 L (37-47) % MCV 83.8 (80-100) fL MCH 26.2 (25-34) pg MCHC 31.3 L (32-36) g/dL RDW Std Deviation 58.8 H (36.4-46.3) fL RDW Coeff of Hoa 19.5 H (11.5-14.5) % Plt Count 207 (130-400) K/uL MPV 10.1 (7.4-10.4) fL Immature Gran % (Auto) 0.3 % Neut % (Auto) 79.4 % Lymph % (Auto) 14.8 % [place] % (Auto) 3.6 % Eos % (Auto) 1.6 % Baso % (Auto) 0.3 % Immature Gran # (Auto) 0.01 (0.00-0.02) K/uL Neut # (Auto) 2.91 (1.4-6.5) K/uL Lymph # (Auto) 0.54 L (1.2-3.4) K/uL [place] # (Auto) 0.13 (0.11-0.59) K/uL Eos # (Auto) 0.06 (0-0.5) K/uL Baso # (Auto) 0.01 (0-0.2) K/uL PT (9.0-12.0) Seconds INR (0.9-1.1) APTT (21.0-31.0) Seconds PTT Ratio VBG pH (7.36-7.41) VBG pCO2 (38-50) mmHg VBG pO2 mmHg VBG HCO3 mmol/L VBG O2 Saturation % VBG Base Excess mEq/L Barometric Pressure mm/Hg Sodium 141 (136-145) mmol/L Potassium 4.6 (3.5-5.1) mmol/L Chloride 112 H (98-107) mmol/L Carbon Dioxide 20 L (21-32) mmol/L Anion Gap 9.0 (3-11) BUN 35 H (7-18) mg/dl Creatinine 1.55 H (0.6-1.2) mg/dl Est Cr Clr Drug Dosing 25.1 ml/min Est GFR ( Amer) 36.3 Est GFR (Non-Af Amer) 31.3 BUN/Creatinine Ratio 22.6 H (10-20) Glucose 163 H (70-99) mg/dl Lactate (0.4-2.0) mmol/L Calcium 8.4 L (8.5-10.1) mg/dl Magnesium 1.3 L (1.8-2.4) mg/dl Total Bilirubin 0.2 (0.2-1) mg/dl Direct Bilirubin < 0.1 (0-0.2) mg/dl AST 18 (15-37) U/L ALT 12 (12-78) U/L Alkaline Phosphatase 63 (45-117) U/L Troponin I < 0.015 (0-0.045) ng/ml NT-Pro-B Natriuret Pep 3377 H (0-1800) pg/ml Total Protein 5.9 L (6.4-8.2) gm/dl Albumin 2.6 L (3.4-5.0) gm/dl Lipase 120 (73-393) U/L Urine Color Urine Appearance (Clear) Urine pH (4.5-7.5) Ur Specific [place] (1.000-1.030) Urine Protein (Negative) Urine Glucose (UA) (Negative) Urine Ketones (Negative) Urine Blood (Negative) Urine Nitrite (Negative) Urine Bilirubin (Negative) Urine Urobilinogen (Negative) Ur Leukocyte Esterase (Negative) Influenza Type A (PCR) Neg for Influ A (Neg) Influenza Type B (PCR) Neg for Influ B (Neg) 03/23/19 03/23/19 03/23/19 Range/Units 21:57 21:57 22:06 WBC (4.8-10.8) K/uL RBC (4.2-5.4) M/uL Hgb (12.0-16.0) g/dL Hct (37-47) % MCV (80-100) fL MCH (25-34) pg MCHC (32-36) g/dL RDW Std Deviation (36.4-46.3) fL RDW Coeff of Hoa (11.5-14.5) % Plt Count (130-400) K/uL MPV (7.4-10.4) fL Immature Gran % (Auto) % Neut % (Auto) % Lymph % (Auto) % [place] % (Auto) % Eos % (Auto) % Baso % (Auto) % Immature Gran # (Auto) (0.00-0.02) K/uL Neut # (Auto) (1.4-6.5) K/uL Lymph # (Auto) (1.2-3.4) K/uL [place] # (Auto) (0.11-0.59) K/uL Eos # (Auto) (0-0.5) K/uL Baso # (Auto) (0-0.2) K/uL PT 11.7 (9.0-12.0) Seconds INR 1.2 H (0.9-1.1) APTT 24.7 (21.0-31.0) Seconds PTT Ratio 0.9 VBG pH 7.25 L (7.36-7.41) VBG pCO2 44 (38-50) mmHg VBG pO2 28 mmHg VBG HCO3 19 mmol/L VBG O2 Saturation < 60.0 % VBG Base Excess -7.7 mEq/L Barometric Pressure 740.6 mm/Hg Sodium (136-145) mmol/L Potassium (3.5-5.1) mmol/L Chloride (98-107) mmol/L Carbon Dioxide (21-32) mmol/L Anion Gap (3-11) BUN (7-18) mg/dl Creatinine (0.6-1.2) mg/dl Est Cr Clr Drug Dosing ml/min Est GFR ( Amer) Est GFR (Non-Af Amer) BUN/Creatinine Ratio (10-20) Glucose (70-99) mg/dl Lactate 1.3 (0.4-2.0) mmol/L Calcium (8.5-10.1) mg/dl Magnesium (1.8-2.4) mg/dl Total Bilirubin (0.2-1) mg/dl Direct Bilirubin (0-0.2) mg/dl AST (15-37) U/L ALT (12-78) U/L Alkaline Phosphatase (45-117) U/L Troponin I (0-0.045) ng/ml NT-Pro-B Natriuret Pep (0-1800) pg/ml Total Protein (6.4-8.2) gm/dl Albumin (3.4-5.0) gm/dl Lipase (73-393) U/L Urine Color Urine Appearance (Clear) Urine pH (4.5-7.5) Ur Specific [place] (1.000-1.030) Urine Protein (Negative) Urine Glucose (UA) (Negative) Urine Ketones (Negative) Urine Blood (Negative) Urine Nitrite (Negative) Urine Bilirubin (Negative) Urine Urobilinogen (Negative) Ur Leukocyte Esterase (Negative) Influenza Type A (PCR) (Neg) Influenza Type B (PCR) (Neg) 03/23/19 Range/Units 22:31 WBC (4.8-10.8) K/uL RBC (4.2-5.4) M/uL Hgb (12.0-16.0) g/dL Hct (37-47) % MCV (80-100) fL MCH (25-34) pg MCHC (32-36) g/dL RDW Std Deviation (36.4-46.3) fL RDW Coeff of Hoa (11.5-14.5) % Plt Count (130-400) K/uL MPV (7.4-10.4) fL Immature Gran % (Auto) % Neut % (Auto) % Lymph % (Auto) % [place] % (Auto) % Eos % (Auto) % Baso % (Auto) % Immature Gran # (Auto) (0.00-0.02) K/uL Neut # (Auto) (1.4-6.5) K/uL Lymph # (Auto) (1.2-3.4) K/uL [place] # (Auto) (0.11-0.59) K/uL Eos # (Auto) (0-0.5) K/uL Baso # (Auto) (0-0.2) K/uL PT (9.0-12.0) Seconds INR (0.9-1.1) APTT (21.0-31.0) Seconds PTT Ratio VBG pH (7.36-7.41) VBG pCO2 (38-50) mmHg VBG pO2 mmHg VBG HCO3 mmol/L VBG O2 Saturation % VBG Base Excess mEq/L Barometric Pressure mm/Hg Sodium (136-145) mmol/L Potassium (3.5-5.1) mmol/L Chloride (98-107) mmol/L Carbon Dioxide (21-32) mmol/L Anion Gap (3-11) BUN (7-18) mg/dl Creatinine (0.6-1.2) mg/dl Est Cr Clr Drug Dosing ml/min Est GFR ( Amer) Est GFR (Non-Af Amer) BUN/Creatinine Ratio (10-20) Glucose (70-99) mg/dl Lactate (0.4-2.0) mmol/L Calcium (8.5-10.1) mg/dl Magnesium (1.8-2.4) mg/dl Total Bilirubin (0.2-1) mg/dl Direct Bilirubin (0-0.2) mg/dl AST (15-37) U/L ALT (12-78) U/L Alkaline Phosphatase (45-117) U/L Troponin I (0-0.045) ng/ml NT-Pro-B Natriuret Pep (0-1800) pg/ml Total Protein (6.4-8.2) gm/dl Albumin (3.4-5.0) gm/dl Lipase (73-393) U/L Urine Color Dark Yellow Urine Appearance Cloudy A (Clear) Urine pH 5.0 (4.5-7.5) Ur Specific [place] 1.024 (1.000-1.030) Urine Protein 1+ H (Negative) Urine Glucose (UA) Negative (Negative) Urine Ketones Trace H (Negative) Urine Blood Negative (Negative) Urine Nitrite Negative (Negative) Urine Bilirubin Negative (Negative) Urine Urobilinogen Negative (Negative) Ur Leukocyte Esterase 1+ H (Negative) Influenza Type A (PCR) (Neg) Influenza Type B (PCR) (Neg) Imaging Data Radiologist's Impression: Radiology results as stated below per my review and e radiologist's interpretation: XR chest 1V portable CLINICAL HISTORY: Shortness of breath COMPARISON STUDY: 03/07/2019 FINDINGS: The cardiac and mediastinal contours remain stable. There is a right- sided A-Port catheter. There is a left subclavian dual-chamber central venous pacemaker. There is slight interval decrease in size of a left pleural effusion. There is persistent associated left lower lobe atelectasis/consolidation. There is a small subpulmonic right pleural effusion. There is mild pulmonary vascular congestion.[ IMPRESSION: 1. Radiographic evidence of mild pulmonary vascular congestion 2. Slight interval decrease in the size of the left pleural effusion, with persistent associated left basilar atelectasis/consolidation 3. Small subpulmonic right pleural effusion ACT 112: Negative or not required by law. Electronically signed by: Enrrique Patiño M.D. 03/23/2019 10:44 PM ECG Data Attestation: I personally reviewed and interpreted this ECG as follows: Indication: + weakness Rate (beats per minute): 83 ECG Intervals/blocks: + Right Bundle branch block, + Normal LA and + Normal QT-c ECG Findings: + Other (QRS: 122) Comparison ECG Date: from (03/23/19 at 23:16 ) Change: the following changes noted (Sinus rhythm. Rate of 76. LA and QTC intervals are wnl. QRS is 126. RBBB. No significant change from prior EKG taken at 21:33 today.) Blood Pressure Blood Pressure Findings: Elevated blood pressure Blood Pressure Disposition: further management by hospitalist ANTHONY Narrative 2122: Past medical records reviewed. The patient was evaluated in room A09B. A complete history and physical exam was performed.The patient has history of endometrial cancer since 2014. She has history of Metastatic pleural effusions. She is on chemotherapy. She also has a history of metastatic ascites. The patient was found to be hypoxic on room air. She started on 2 L nasal cannula which immediately improved her oxygen saturation. 3: Bedside ultrasound showed trace ascites with no large drainable fluid collection. 0: Vital signs stable on 2 L oxygen via nasal cannula. Labs within normal limits with exception of a magnesium of 1.3 and proBNP of 3377. Flu negative. Chest x-ray showed bilateral pleural effusions. Magnesium will be replaced in the emergency department. No Lasix at this time given it is unclear if the patient's pleural effusions are due to the metastatic pleural effusions she has had in the past or due to cardiac reasons such as CHF. I spoke to Dr. Branham, [facility] hospitalist, who agreed to take over care of the patient. The patient is agreeable to the treatment plan and will stay for further evaluation. Impression & Plan Hypoxia, Malignant pleural effusion, Hypomagnesemia Discharge Plan Visit Data Chief Complaint: Leg Weakness, Bilateral Stated Complaint: WEAKNESS, ED Provider: Braulio Osullivan Discharge Problem: Hypoxia, Malignant pleural effusion, Hypomagnesemia Forms Stand Alone Forms: My [facility] Prescriptions Prescriptions: No Action montelukast 10 mg tablet 10 mg PO DAILY Qty: 90 RF: 1 cyanocobalamin (vitamin B-12) 500 mcg tablet,disintegrating 500 mcg PO 3XWK RF: 0 omeprazole 20 mg capsule,delayed release(DR/EC) 20 mg PO DAILY RF: 0 nitroglycerin 0.4 mg tablet, sublingual 0.4 mg SL DIRECTED PRN (Reason: Chest Pain) RF: 0 isosorbide mononitrate 60 mg tablet extended release 24 hr 60 mg PO DAILY RF: 0 ipratropium-albuterol 0.5 mg-3 mg(2.5 mg base)/3 mL solution for nebulization 3 ml inhalation DAILY PRN (Reason: Shortness Of Breath) Qty: 6 RF: 0 ergocalciferol (vitamin D2) 50,000 unit capsule 50,000 unit PO DAILY Qty: 4 RF: 0 rosuvastatin [Crestor] 5 mg tablet 5 mg PO DAILY Qty: 30 RF: 0 albuterol sulfate 90 mcg/actuation HFA aerosol inhaler 2 inh inhalation .INHALE 2 PUFFS EVERY PRN (Reason: Shortness Of Breath) Qty: 3 RF: 0 metoprolol succinate 25 mg tablet extended release 24 hr 25 mg PO BID RF: 0 cetirizine [Zyrtec] 10 mg tablet 10 mg PO DAILY RF: 0 amlodipine 2.5 mg Tablet 2.5 mg PO DAILY RF: 0 aspirin [Aspir-81] 81 mg Tablet,Delayed Release (Dr/Ec) 81 mg PO DAILY RF: 0 Referrals Referrals: Sree Guzman MD [Primary Care Provider] - The scribe's documentation has been prepared under my direction and personally reviewed by me in its entirety. I confirm that the note above accurately reflects all work, treatment, procedures, and medical decision making performed by me.
[2019-03-23 23:51] LABS: Bacteria Urine Automated 1+ (Negative)
[2019-03-23 23:53] LABS: Cast Urine Automated 0 /lpf (0-5); Mucus Urine Present (None Prsent)
[2019-03-23] MEDS: MAGNESIUM SULFATE / D5W 1 GM/100 ML BAG IV SCH (23:53)
--- NOTE | 2019-03-23 23:55 | History & Physical Report ---
Date of Service March 23, 2019 Assessment & Plan (1) Bilateral lower leg cellulitis: 78 yo F with PMH HTN, DM, CAD s/p a PCI in the past, mild asthma, malignant pleural effusions presents with concerns of LE weakness found to have cellulitic skin changes and pleural effusions on CXR. b/l LE Cellulitis -IV Vanc/Rocephin -blood cx ordered Pleural Effusions -CXR: Radiographic evidence of mild pulmonary vascular congestion. Slight inter ellis decrease in the size of the left pleural effusion, with persistent associated left basilar atelectasis/consolidation. Small subpulmonic right pleural effusion -likely malignant, secondary to Hx of endometrial carcinoma now with metastases vs CHF etiology -BNP 3377 -IV Lasix 20 mg given in ER . Can give additional doses as necessary -pt currently requiring 2L NC currently, does not normally have O2 requirement. Wean as tolerated -pt with previous admission Jan 2019 that required pleur-X placement. Follows with Dr. Surekha horton as an outpt for any breathing issues. Last visit 03/07/19. Do not believe will require any acute intervention this admission, but may consider consult moving forward Endometrial Carcinoma with Metastases -Hx of endometrial cancer diagnosed in 2014 (s/p total hysterectomy with bilateral salpingo-oophorectomy, chemotherapy and brachytherapy) -pt follow with Dr. Hinton and receiving chemotherapy through port -continue Vit D, B administration -Heme-onc consulted -pt does not endorse any pain currently CAD -continue home isosorbide mononitrate 60mg once daily, crestor 5mg, aspirin 81mg HTN -continue home metoprolol succinate 25mg ER, Amlodipine 2.5 mg Asthma -continue home inhalers PRN, and Zyrtec Hypomagnesemia -repleted in ER. Recheck in AM FEN/GI: HH Diet DVT Prophylaxis: Heparin SQ. Pt cannot tolerate TEDs/SCDs. DNR/DNI Dispo: Med Tele History of Present Illness Chief Complaint: leg weakness Primary Care Provider: Sree Guzman MD 78 yo F with a PMH of HTN, DM, CAD s/p a PCI in the past, mild asthma, malignant pleural effusions presents to [facility] with concerns of b/l leg weakness. First noticed this today. Pt noted some pain when walking up stairs to use restroom in house. Pain is constant, worse with movement, and relieved only by sitting still. Today pt also noted some redness to LE b/l as well. This is the first such occurrence of these symptoms for pt. Associated chills, but otherwise denies any fevers, CP, SOB, abd pain, N/V. Denies any recent trauma or falls. Otherwise, pt does not wear oxygen all the time, but she was at 85% at home and 88% on the way to the hospital. Of note, pt was diagnosed with endometrial cancer in 2104 for which she underwent a PAOLO-BSO followed by chemotherapy and brachytherapy. She was noted to have ascites Fall 2018 and underwent a paracentesis on 12/26/18--the fluid revealed metastatic adenocarcinoma concerning for uterine/ovarian primary. 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 Pt is followed by Dr. Hinton and is currently receiving chemotherapy. Her last chemo treatment was 4 days ago. Pertinent Labs: Hgb 8.1, Cr 1.55, Mg 1.3, BNP 3377, Albumin 2.6 CXR: Radiographic evidence of mild pulmonary vascular congestion. Slight interval decrease in the size of the left pleural effusion, with persistent associated left basilar atelectasis/consolidation. Small subpulmonic right ple ural effusion ER Course: IV MgSO4 1g Social Hx- denies tobacco, alcohol, illicit drug use Surgical Hx- x3, carpal tunnel right hand, R hip replacement, hysterectomy for cancer, b/l knee replacement, tonsillectomy, uvulectomy Allergies Allergy/AdvReac Type Severity Reaction Status Date / Time animal dander Allergy Intermediate SNEEZING, Verified 03/23/19 22:06 CONGESTION grass pollen Allergy Intermediate SNEEZING, Verified 03/23/19 22:06 CONGESTION Home Medications Home Medications Medication Instructions Recorded Confirmed Type albuterol sulfate 90 mcg/actuation 2 inh INHALATION .INHALE 2 PUFFS 11/18/18 03/23/19 History aerosol inhaler EVERY PRN #3 gm cyanocobalamin (vitamin B-12) 500 500 mcg PO 3XWK tab 11/18/18 03/23/19 History mcg disintegrating tablet,sublingual ergocalciferol (vitamin D2) 1,250 50,000 unit PO DAILY #4 cap 11/18/18 03/23/19 History mcg (50,000 unit) capsule ipratropium 0.5 mg-albuterol 3 mg 3 ml INHALATION DAILY PRN #6 ml 11/18/18 03/23/19 History (2.5 mg base)/3 mL nebulization soln isosorbide mononitrate 60 mg 60 mg PO DAILY tab 11/18/18 03/23/19 History tablet,extended release 24 hr metoprolol succinate 25 mg 25 mg PO BID tab 11/18/18 03/23/19 History tablet,extended release 24 hr nitroglycerin 0.4 mg sublingual 0.4 mg SL DIRECTED PRN tab 11/18/18 03/23/19 History tablet omeprazole 20 mg capsule,delayed 20 mg PO DAILY cap 11/18/18 03/23/19 History release rosuvastatin 5 mg tablet 5 mg PO DAILY #30 tab 11/18/18 03/23/19 History montelukast 10 mg tablet 10 mg PO DAILY #90 tab 01/01/19 03/23/19 Rx cetirizine [Zyrtec] 10 mg PO DAILY 02/14/19 03/23/19 History amlodipine 2.5 mg PO DAILY 03/23/19 03/23/19 History aspirin [Aspir-81] 81 mg PO DAILY 03/23/19 03/23/19 History Past Med/Surg History Medical History Arthritis (Acute) Cancer (Acute) uterine, endometrial, abdominal cancer DVT (deep venous thrombosis) (Acute) High cholesterol (Acute) History of cataract (Acute) Hypertension (Acute) Pacemaker (Acute) Surgical History History of (Acute) x3 History of carpal tunnel surgery (Acute) right hand History of hip replacement (Acute) right History of hysterectomy for cancer (Acute) History of knee replacement (Acute) b/l knees History of tonsillectomy (Acute) History of uvulectomy (Acute) Social History Preferred Language: German Communication Ability: Effective Patient Care Technician Instructor Required: No Beliefs That Will Affect Care: None Current Living Situation: Spouse Feels Safe at Home: Yes Safety Concerns: Feels Safe At This Time Smoking Status: Never smoker Second Hand Exposure: No ; Hx Alcohol Use: No Hx Substance Use: No Review of Systems Review of Systems: All systems reviewed & are unremarkable except as noted in HPI & below Physical Exam Constitutional: WD/WN, vitals as above Eyes: PERRL, conjunctivae normal, anicteric sclerae ENMT: external ear and nose normal, oropharynx normal Respiratory: normal respiratory effort; no respiratory distress and no labored breathing Auscultation: + diminished lung sounds and + rales Cardiovascular: RRR, no murmur, no edema Chest (Breasts): Chest: + pacemaker Gastrointestinal (Abdomen): normal bowel sounds, soft, nontender, no hepatosplenomegaly Skin: b/l LE erythema from knee inferiorly Psychiatric: A+Ox3, euthymic affect Lymphatic: 2-3+ pitting edema LE Results & Data Vital Signs (Past 12 Hours) Vital Signs Temp Pulse Pulse Resp BP BP Pulse Ox 03/23/19 23:00 79 22 110/56 L 96 03/23/19 22:35 79 22 127/72 96 03/23/19 21:53 97 03/23/19 21:24 36.7 C 88 18 133/80 88 L Laboratory Results Laboratory Results - last 24 hr 03/23/19 03/23/19 03/23/19 21:40 21:57 21:57 WBC 3.66 L RBC 3.09 L Hgb 8.1 L Hct 25.9 L MCV 83.8 MCH 26.2 MCHC 31.3 L RDW Std Deviation 58.8 H RDW Coeff of Hoa 19.5 H Plt Count 207 MPV 10.1 Immature Gran % (Auto) 0.3 Neut % (Auto) 79.4 Lymph % (Auto) 14.8 [place] % (Auto) 3.6 Eos % (Auto) 1.6 Baso % (Auto) 0.3 Immature Gran # (Auto) 0.01 Neut # (Auto) 2.91 Lymph # (Auto) 0.54 L [place] # (Auto) 0.13 Eos # (Auto) 0.06 Baso # (Auto) 0.01 PT INR APTT PTT Ratio VBG pH VBG pCO2 VBG pO2 VBG HCO3 VBG O2 Saturation VBG Base Excess Barometric Pressure Sodium 141 Potassium 4.6 Chloride 112 H Carbon Dioxide 20 L Anion Gap 9.0 BUN 35 H Creatinine 1.55 H Est Cr Clr Drug Dosing 25.1 Est GFR ( Amer) 36.3 Est GFR (Non-Af Amer) 31.3 BUN/Creatinine Ratio 22.6 H Glucose 163 H Lactate Calcium 8.4 L Magnesium 1.3 L Total Bilirubin 0.2 Direct Bilirubin < 0.1 AST 18 ALT 12 Alkaline Phosphatase 63 Troponin I < 0.015 NT-Pro-B Natriuret Pep 3377 H Total Protein 5.9 L Albumin 2.6 L Lipase 120 Urine Color Urine Appearance Urine pH Ur Specific [place] Urine Protein Urine Glucose (UA) Urine Ketones Urine Blood Urine Nitrite Urine Bilirubin Urine Urobilinogen Ur Leukocyte Esterase Urine WBC (Auto) Urine RBC (Auto) U Hyaline Cast (Auto) U Epithel Cells (Auto) Urine Bacteria (Auto) Granular Casts Urine Mucus Influenza Type A (PCR) Neg for Influ A Influenza Type B (PCR) Neg for Influ B 03/23/19 03/23/19 03/23/19 21:57 21:57 22:06 WBC RBC Hgb Hct MCV MCH MCHC RDW Std Deviation RDW Coeff of Hoa Plt Count MPV Immature Gran % (Auto) Neut % (Auto) Lymph % (Auto) [place] % (Auto) Eos % (Auto) Baso % (Auto) Immature Gran # (Auto) Neut # (Auto) Lymph # (Auto) [place] # (Auto) Eos # (Auto) Baso # (Auto) PT 11.7 INR 1.2 H APTT 24.7 PTT Ratio 0.9 VBG pH 7.25 L VBG pCO2 44 VBG pO2 28 VBG HCO3 19 VBG O2 Saturation < 60.0 VBG Base Excess -7.7 Barometric Pressure 740.6 Sodium Potassium Chloride Carbon Dioxide Anion Gap BUN Creatinine Est Cr Clr Drug Dosing Est GFR ( Amer) Est GFR (Non-Af Amer) BUN/Creatinine Ratio Glucose Lactate 1.3 Calcium Magnesium Total Bilirubin Direct Bilirubin AST ALT Alkaline Phosphatase Troponin I NT-Pro-B Natriuret Pep Total Protein Albumin Lipase Urine Color Urine Appearance Urine pH Ur Specific [place] Urine Protein Urine Glucose (UA) Urine Ketones Urine Blood Urine Nitrite Urine Bilirubin Urine Urobilinogen Ur Leukocyte Esterase Urine WBC (Auto) Urine RBC (Auto) U Hyaline Cast (Auto) U Epithel Cells (Auto) Urine Bacteria (Auto) Granular Casts Urine Mucus Influenza Type A (PCR) Influenza Type B (PCR) 03/23/19 22:31 WBC RBC Hgb Hct MCV MCH MCHC RDW Std Deviation RDW Coeff of Hoa Plt Count MPV Immature Gran % (Auto) Neut % (Auto) Lymph % (Auto) [place] % (Auto) Eos % (Auto) Baso % (Auto) Immature Gran # (Auto) Neut # (Auto) Lymph # (Auto) [place] # (Auto) Eos # (Auto) Baso # (Auto) PT INR APTT PTT Ratio VBG pH VBG pCO2 VBG pO2 VBG HCO3 VBG O2 Saturation VBG Base Excess Barometric Pressure Sodium Potassium Chloride Carbon Dioxide Anion Gap BUN Creatinine Est Cr Clr Drug Dosing Est GFR ( Amer) Est GFR (Non-Af Amer) BUN/Creatinine Ratio Glucose Lactate Calcium Magnesium Total Bilirubin Direct Bilirubin AST ALT Alkaline Phosphatase Troponin I NT-Pro-B Natriuret Pep Total Protein Albumin Lipase Urine Color Dark Yellow Urine Appearance Cloudy A Urine pH 5.0 Ur Specific [place] 1.024 Urine Protein 1+ H Urine Glucose (UA) Negative Urine Ketones Trace H Urine Blood Negative Urine Nitrite Negative Urine Bilirubin Negative Urine Urobilinogen Negative Ur Leukocyte Esterase 1+ H Urine WBC (Auto) 10-30 H Urine RBC (Auto) 5-10 H U Hyaline Cast (Auto) 0 U Epithel Cells (Auto) >30 H Urine Bacteria (Auto) 1+ H Granular Casts 5-10 H Urine Mucus Present A Influenza Type A (PCR) Influenza Type B (PCR) Medications Administered Current Inpatient Medications Magnesium Sulfate/Dextrose (Magnesium Sulfate / D5w) 1 gm in 100 mls @ 100 mls/hr IV Q1H ROSMERY Stop: 03/24/19 01:44 Last Admin: 03/23/19 23:53 Dose: 100 mls/hr Documented by: Code Status & VTE Plan Code Status DNR/DNI Supervising Physician Co-Signing Physician Notes Attending addendum: I have physically seen this patient, have supervised the medical residents activities, and agree with the H&P unless as otherwise noted. Assessment and Plan: Bilateral lower extremity cellulitis/lower extremity edema- Placed on vancomycin IV and ceftriaxone IV. Give a dose of Lasix 20 mg IV x1 tonight and follow diuresis. Malignant pleural effusions- Recent placement of Pleurx catheter on the right, followed by chemical pleurodesis with bleomycin, followed by removal of Pleurx catheter by Dr. Irby. Left pleural effusion still present but smaller than most recent x-ray. May be some mild pulmonary edema returning. Follow response to Lasix clinically and with oxygen requirements. Metastatic endometrial carcinoma- Follows with Dr. Hinton Remainder of orders and notations as noted. Resident Activity Tracking Resident Involvement: Resident Care Provided Care Provided: [facility]
[2019-03-24] MEDS: MAGNESIUM SULFATE / D5W 1 GM/100 ML BAG IV SCH (00:54)
[2019-03-24] MEDS ORDERED: VANCOMYCIN CONSULT ACTIVE PRN (02:01)
[2019-03-24] MEDS ORDERED: NITROGLYCERIN SL 0.4 MG/TAB TAB SL PRN (02:01)
[2019-03-24] MEDS ORDERED: ONDANSETRON INJ 2 MG/ML 2 ML VIAL IV PRN (02:01)
[2019-03-24] MEDS ORDERED: ALBUT/IPRATROP 3MG/0.5MG NEB 3 ML VIAL INH PRN (02:01)
[2019-03-24] MEDS ORDERED: ALBUTEROL HFA 8 GM INHALER INH PRN (02:01)
[2019-03-24] MEDS ORDERED: FUROSEMIDE 40 MG/4 ML VIAL IV STA (02:01)
[2019-03-24] MEDS ORDERED: ALUMINUM/MAGNESIUM SUSP 30 ML UDC PO PRN (02:01)
[2019-03-24] MEDS ORDERED: VANCOMYCIN HCL 1,000 MG in SODIUM CHLORIDE 0.9% 250 ML IV SCH (02:01)
[2019-03-24] MEDS ORDERED: ACETAMINOPHEN 325 MG TAB PO PRN (02:01)
[2019-03-24] MEDS ORDERED: FUROSEMIDE 20 MG in SYRINGE 0 ML IV ONE (02:15)
[2019-03-24] MEDS: IBUPROFEN 200 MG TAB PO PRN ×2 (02:19→09:44)
[2019-03-24] MEDS: cefTRIAXone SODIUM 2,000 MG in DEXTROSE 5% 50 ML IV SCH (02:26)
[2019-03-24] MEDS ORDERED: VANCOMYCIN HCL 1,500 MG in SODIUM CHLORIDE 0.9% 500 ML IV ONE (02:30)
--- NOTE | 2019-03-24 06:05 | Billing Data ---
Date of Service March 24, 2019 Coding Level of Care Code 06932 Initial Inpt Care Lvl 3
[2019-03-24 07:23] LABS: Basophils # (auto) 0.02 K/uL (0-0.2); Basophils % (auto) 0.6 %; Eosinophils # (auto) 0.05 K/uL (0-0.5); Eosinophils % (auto) 1.4 %; Hematocrit (blood only) 24.7 % (37-47); Hemoglobin 7.9 g/dL (12.0-16.0); Lymphocytes % (auto) 20.3 %; Mean Corpuscular Hemoglobin 27.1 pg (25-34); Mean Corpuscular Volume 84.6 fL (80-100); Mean Platelet Volume 9.8 fL (7.4-10.4); Monocytes # (auto) 0.21 K/uL (0.11-0.59); Monocytes % (auto) 6.1 %; Neutrophils # (auto) 2.47 K/uL (1.4-6.5); Neutrophils % (auto) 71.6 %; Platelet Count 202 K/uL (130-400); RDW Coefficient of Variation 19.5 % (11.5-14.5); RDW Standard Deviation 59.6 fL (36.4-46.3); Red Blood Count 2.92 M/uL (4.2-5.4); White Blood Count 3.45 K/uL (4.8-10.8)
[2019-03-24 07:44] LABS: Anisocytosis Present
[2019-03-24 07:55] LABS: Calcium 8.3 mg/dl (8.5-10.1); Magnesium 1.9 mg/dl (1.8-2.4); Potassium 4.2 mmol/L (3.5-5.1)
[2019-03-24 08:05] LABS: BUN Creatinine Ratio 24.7 (10-20); Creatinine Clr Calc Pharmacy 28.9 ml/min; Est GFR (African American) 43.6; Est GFR (Non-African American) 37.7
[2019-03-24] MEDS: CETIRIZINE HCL 10 MG TABLET PO SCH (08:07)
[2019-03-24] MEDS: ASPIRIN 81 MG ECTAB PO SCH (08:07)
[2019-03-24] MEDS: MONTELUKAST SODIUM 10 MG TABLET PO SCH (08:07)
[2019-03-24] MEDS: AMLODIPINE BESYLATE 5 MG TAB PO SCH (08:07)
[2019-03-24] MEDS: CYANOCOBALAMIN 500 MCG TABLET (VITAMIN B-12) PO SCH (08:07)
[2019-03-24] MEDS: PANTOprazole 40 MG TAB PO SCH (08:08)
[2019-03-24] MEDS: METOPROLOL SUCC 25MG EXT REL TAB PO SCH ×2 (08:08→20:57)
[2019-03-24] MEDS: ISOSORBIDE MONO EXTENDED REL 60 MG TABCR PO SCH (08:08)
[2019-03-24] MEDS: ERGOCALCIFEROL 50,000 UNITS CAP PO SCH (08:08)
[2019-03-24] MEDS: ROSUVASTATIN CALCIUM 5 MG TAB PO SCH (08:08)
--- NOTE | 2019-03-24 08:15 | Electrocardiogram Report ---
Test Reason : Blood Pressure : / mmHG Vent. Rate : 083 BPM Atrial Rate : 083 BPM P-R Int : 170 ms QRS Dur : 122 ms QT Int : 384 ms P-R-T Axes : 054 063 035 degrees QTc Int : 451 ms Normal sinus rhythm Right bundle branch block Abnormal ECG When compared with ECG of 05-FEB-2019 06:32, [place] interval has decreased Confirmed by Rober Russell ([id number]) on 03/24/2019 7:43:18 AM Referred By: REFERRED SELF Confirmed By:Rober Russell
--- NOTE | 2019-03-24 08:27 | Pharmacy Report ---
Pharmacy Abx Dose Short Note - Date of Service March 24, 2019 - Assessment & Plan Assessment * 78 year old F admitted for B/L lower ext cellulitis * Patient does have risk factors for resistant organism: hospitalized in last 90 days, receiving chemotherapy via port * Per nursing, no purulence present on lower extremities * Patient is afebrile, no leukocytosis noted on labs however leukopenia noted, no neutropenia noted on labs today (chemo given ~5 days ago per provider's note - possibly Taxol?), no hypotension or tachycardia noted on recorded labs however tachypnea present * Empiric Vancomycin + Ceftriaxone ordered by hospitalist, Pharm to dose Vancomycin * Renal fxn stable, somewhat improved over yesterday. SCr 1.33 possibly reflective of patient's baseline? UOP normal thus far per credit assessment analyst Plan Vancomycin * 1500mg (~21mg/kg) IV x 1 given at 0319 this AM * Maint dose: 1000mg (~15mg/kg) IV Q 24 hrs * Goal trough level for skin/skin structure infxn : 10 to 20 mcg/mL (however target may be modified depending on LESLY of cultured organism) * Will check trough level in 2-3 days if therapy to continue * P'kinetic estimates: half-life ~24 hrs, Vd 0.7L/kg Pharmacy will continue to follow and will adjust dose/frequency as necessary. Thank you.
[2019-03-24] MEDS ORDERED: HEPARIN SOD 5,000 UNIT/0.5 ML VIAL SQ SCH (09:00)
--- NOTE | 2019-03-24 09:06 | Consultation Report ---
DATE OF CONSULTATION: 03/24/2019 REASON FOR CONSULTATION: An 78-year-old female patient with metastatic endometrial carcinoma admitted for suspected cellulitis. HISTORY OF PRESENT ILLNESS: Alix is a pleasant 78-year-old patient well known to [facility], currently under Dr. Hinton's care, receiving salvage carboplatin and paclitaxel for metastatic endometrial carcinoma. She imparts having worsening leg pain which has been present throughout chemotherapy, we got to the point where her pain was no longer tolerable, thus she presented to the Emergency Room. It was somewhat difficult to extract exactly the quality of her pain, but it appears to be bilateral definitely worse within the left lower extremity than right, but persistent and she describes a "burning and stinging" quality of discomfort. 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 The admitting team felt there was some erythema which at bedside I could not appreciate to any great extent. She is definitely tender again more so on the left and right. She denies any fevers, chills, shortness of breath, dyspnea or orthopnea at present time. Ms. Knight was originally diagnosed with endometrial cancer in 2014, underwent total abdominal hysterectomy, bilateral salpingo-oophorectomy followed by chemo and brachytherapy. In the fall of 2018, developed ascites and underwent paracentesis in mid December revealing metastatic adenocarcinoma. Her last chemotherapy was administered on 03/20/2019. The patient voices no other complaints or concerns. PAST MEDICAL HISTORY: Consistent with metastatic endometrial carcinoma, coronary artery disease, hypertension, asthma, electrolyte dysfunction, malignant effusions, previous DVT, osteoarthritis and status post pacemaker placement. PAST SURGICAL HISTORY: Includes section x3, carpal tunnel surgery, hip replacement on the right, hysterectomy, bilateral salpingo-oophorectomy, tonsillectomy and uvulectomy. MEDICATIONS: Prior to admission include albuterol 2 inhalations q.4 hours p.r.n., cyanocobalamin 500 mcg p.o. 3 times weekly, vitamin D2 50,000 units p.o. every day, ipratropium/albuterol 3 mL inhaled daily p.r.n., Imdur 60 mg p.o. daily, metoprolol 25 mg p.o. b.i.d., nitroglycerin 0.4 sublingual as needed for angina, omeprazole 20 mg p.o. every day, rosuvastatin 5 mg p.o. daily, Singulair 10 mg p.o. daily, Zyrtec 10 mg p.o. daily, amlodipine 2.5 mg p.o. daily, aspirin 81 mg p.o. daily. ALLERGIES: ANIMAL DANDER and GRASS POLLEN. SOCIAL HISTORY: The patient resides with her spouse. She is a nonsmoker, nondrinker, non-illicit drug user. FAMILY HISTORY: Noncontributory. REVIEW OF SYSTEMS: GENERAL: As per HPI, negative for fevers, chills or sweats. Her appetite and weight remained stable. SKIN: No rashes or lesions. No history of dermatoses. HEENT: Negative for headaches, lightheadedness or dizziness. No acute visual or hearing deficits. No sinus symptoms, sore throat or dysphagia. LYMPH: No history of lymphoproliferative disease. CARDIAC: Positive history of coronary artery disease. No current angina or palpitations. PULMONARY: Positive for COPD. She is not short of breath, dyspneic or orthopneic at present time. No cough or hemoptysis reported. GASTROINTESTINAL: Negative for abdominal pain, nausea, vomiting, diarrhea or constipation, hematochezia or melena stools. GENITOURINARY: No hematuria, dysuria, urinary incontinence. MUSCULOSKELETAL: No arthralgias or myalgias. No focal muscle weakness. ENDOCRINE: Negative for diabetes or thyroid disease. NEUROLOGIC: Negative for seizure, stroke, or migraine headache. HEMATOLOGIC: Positive for anemia and leukopenia, I suspect attributable to treatment. PHYSICAL EXAMINATION: GENERAL: A very pleasant 78-year-old female, awake, alert and appropriate, in no acute distress. VITAL SIGNS: Temperature 36.3, pulse 82, respiratory rate 18, blood pressure 123/66. SKIN: Warm, dry, noncyanotic. Again, careful examination of the lower extremities, there may be some slight erythema over the left tibial shaft, but cannot even really see any overt demarcation. HEENT: Her head is atraumatic, normocephalic. Eyes: PERRLA. Throat is clear. Tongue midline. Mucous membranes are moist. NECK: Supple. HEART: Regular rate and rhythm. LUNGS: Clear to auscultation bilaterally. ABDOMEN: Soft, nontender, nondistended. EXTREMITIES: No clubbing, cyanosis or edema. MUSCULOSKELETAL: Strength and pulses are equal in all 4 quadrants. NEUROLOGICALLY: She is awake, alert and oriented x3. SKIN: Again, she has notable sensory deficit extending up to her knees, bilateral lower extremities. LABORATORY DATA: WBC count 3450, hemoglobin 7.9, platelet count 202,000. Coags within normal limits. Sodium 141, potassium 4.2, chloride 112, carbon dioxide 21, creatinine 1.33, BUN 33, albumin 2.6. UA: 1+ positive protein, trace ketones, positive leukocyte esterase, WBCs 10-30. IMPRESSION: 1. Bilateral leg pain/suspected cellulitis. 2. Pleural effusions. 3. Metastatic endometrial carcinoma. 4. History of coronary artery disease. 5. History of hypertension. 6. Hypoalbuminemia. PLAN: It is my pleasure to visit with Alix at bedside this morning. She is a patient of Dr. Hinton's, currently under care for metastatic endometrial carcinoma. She received her last course of paclitaxel and carboplatin on the . Based on the information Alix provided me at bedside, this pain has been present throughout chemotherapy, but has now got to the point where it worsened, hence her rationale for coming to the hospital. I do not appreciate much erythema. She is definitely tender on the left leg, more so on the right. Last suggest maybe giving her an empiric trial of Neurontin. I would start at 300 mg every 8 hours p.r.n. which may help ameliorate some of her symptomatology. We will discuss with Dr. Hinton further regarding dose modification as it pertains to paclitaxel, which is notorious for causing neuropathy. Beyond that, I agree with medical management. Ultimately the likelihood of bilateral cellulitis, I think is remote. The patient has not had any fever or any other symptoms suggestive of an emerging infection.. The patient has followup established with Dr. Hinton I believe later this week or early next week as she is due for her next course. Encouraged her to engage in direct discussion regarding neuropathy and management thereof. We will continue to follow her periodically during her hospitalization. Thank you very much for allowing me to participate in her care. DESI
--- NOTE | 2019-03-24 09:31 | Hospitalist Progress Note ---
Date of Service March 24, 2019 Assessment & Plan (1) Bilateral lower leg cellulitis: 78 yo F with PMH HTN, DM II, CAD s/p a PCI in the past, mild asthma, malignant pleural effusions presents with concerns of LE pain and found to have b/l limb swelling, erythema and tenderness and pleural effusions on CXR. b/l LE Pain - multifactorial - Bilateral leg edema with Bilateral leg cellulitis/Acute DVT -IV Vanc/Rocephin -blood cx ordered NGTD -Dopplers ordered showing DVT in left leg -Per oncology - 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 Patient with no clinical evidence of PE at this time, no tachycardia, oxygenating well on room air, troponins negative, will get echo to evaluate right heart strain Pleural Effusions Hypoxia - resolved -CXR: Radiographic evidence of mild pulmonary vascular congestion. Slight interval decrease in the size of the left pleural effusion, with persistent associated left basilar atelectasis/consolidation. Small subpulmonic right pleural effusion -likely malignant, secondary to Hx of endometrial carcinoma now with metastases vs CHF etiology -pt with previous admission due to hypoxemic respiratory failure Jan 2019 that required right sided pleur-X placement. Follows with Dr. Irby and had pleur X removed and pleurodesis performed on right side -BNP 3377 -IV Lasix 20 mg given in ER . Can give additional doses as necessary Endometrial Carcinoma with Metastases -Hx of endometrial cancer diagnosed in 2014 (s/p total hysterectomy with bilateral salpingo-oophorectomy, chemotherapy and brachytherapy) -pt follow with Dr. 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 -pt does not endorse any pain currently CAD -continue home isosorbide mononitrate 60mg once daily, crestor 5mg holding home ASA HTN -continue home metoprolol succinate 25mg ER, Amlodipine 2.5 mg Asthma -continue home inhalers PRN, and Zyrtec Hypomagnesemia -repleted in ER normal range today, will recheck qam and replete as necessary FEN/GI: HH Diet DVT Prophylaxis: Rivaroxaban DNR/DNI Dispo: Med Tele (2) Pacemaker: (3) Hypoxia: (4) Malignant pleural effusion: (5) Hypomagnesemia: (6) Endometrial cancer: (7) Bilateral pleural effusion: (8) Dyspnea: (9) Chronic cough: (10) Hypertension: Supervising Physician Co-Signing Physician Notes Resident Physician Supervision Note: I independently interviewed and examined the patient and verified the moat history and physical, reviewed labs and image studies, discussed the case with the resident Dr. Carrion and agree with the findings and care plan. Subjective Alix Knight is very uncomfortable this morning and complaining about the quality of the hospital bed and her inability to get comfortable, she continues to endorse pain in both of her legs. She denies any fevers, chills, sweats, chest pain, shortness of breath, abdominal pain, nausea, vomiting, diarrhea or constipation. She has otherwise been well recently and has not noted any recent changes in her breathing. Review of Systems Review of Systems: All systems reviewed & are unremarkable except as noted in HPI & below Physical Exam Physical Exam: Constitutional: Well appearing woman resting comfortably in bed, no distress while standing still but obvious discomfort with motion Eyes: Anicteric sclerae, EOMMI bilaterally Respiratory: No respiratory distress, no accessory muscle use Cardiovascular: regular rate, regular rhythm, heart sounds dual, no m/r/s/g bilateral 3+ pitting edema, calf tenderness present left worse than right GI: Abdomen soft/nontender SKin: Edematous bilateral lower extremities with erythema of distal LLE Results & Data Vital Signs (Past 12 Hours) Vital Signs Temp Pulse Pulse Resp BP BP Pulse Ox 03/24/19 08:27 36.3 C L 82 18 123/66 94 03/24/19 03:48 36.5 C 81 20 130/68 94 03/24/19 03:27 84 03/24/19 02:24 36.4 C L 79 16 124/66 92 03/24/19 01:36 85 30 H 133/81 94 03/24/19 01:00 85 24 124/71 93 03/24/19 00:00 78 24 116/63 96 03/23/19 23:00 79 22 110/56 L 96 03/23/19 22:35 79 22 127/72 96 03/23/19 21:53 97 Resident Activity Tracking Resident Involvement: Resident Care Provided Care Provided: Adult Hospital Medicine
[2019-03-24] MEDS ORDERED: PERFLUTREN LIPID MICROSPHERE (DEFINITY) IV ONE (10:28)
[2019-03-24] MEDS: HEPARIN 100 UNIT/ML 5ML FLUSH FLUSH PRN (11:41)
[2019-03-24] MEDS: GABAPENTIN 300 MG CAP PO SCH ×2 (14:07→20:57)
--- NOTE | 2019-03-24 15:37 | Ultrasound Report ---
US venous doppler LE BI CLINICAL HISTORY: bilateral leg pain, metastatic disease COMPARISON STUDY: No previous studies for comparison. FINDINGS: On the right, no thrombus was visualized within the right common femoral, superficial femoral, or pop liteal vein. There is normal color flow within the proximal trifurcation veins of the right calf. On the left, there is chronic appearing thrombus within the common femoral and superficial femoral ve ins. There is acute appearing thrombus within the left popliteal posterior tibial and peroneal veins. IMPRESSION: 1. No evidence of right lower extremity DVT 2. Left lower extremity DVT with acute appearing thrombus identified within the left popliteal, poste rior tibial and peroneal veins. In addition there is chronic appearing thrombus within the left commo n femoral vein superficial femoral vein. ACT 112: Negative or not required by law. Electronically signed by: Enrrique Patiño M.D. 03/24/2019 3:35 PM
[2019-03-24] MEDS ORDERED: SODIUM CHLORIDE 0.65% NA SOLN 45 ML (OCEAN) STA (16:24)
[2019-03-24] MEDS ORDERED: HYDROCODONE/ACETAMINOPHEN 10/325 TAB PO PRN (16:33)
[2019-03-24] MEDS ORDERED: MoRPHine SULFATE 2 MG/ML CARP IV STA (20:45)
[2019-03-24] MEDS: RIVAROXABAN 15 MG TAB PO SCH (20:58)
[2019-03-25] MEDS: cefTRIAXone SODIUM 2,000 MG in DEXTROSE 5% 50 ML IV SCH (02:38)
[2019-03-25] MEDS ORDERED: VANCOMYCIN HCL 1,000 MG in SODIUM CHLORIDE 0.9% 250 ML IV SCH (04:00)
[2019-03-25] MEDS: RIVAROXABAN 15 MG TAB PO SCH (08:03)
[2019-03-25] MEDS: CETIRIZINE HCL 10 MG TABLET PO SCH (08:03)
[2019-03-25] MEDS: ERGOCALCIFEROL 50,000 UNITS CAP PO SCH (08:04)
[2019-03-25] MEDS: ROSUVASTATIN CALCIUM 5 MG TAB PO SCH (08:04)
[2019-03-25] MEDS: PANTOprazole 40 MG TAB PO SCH (08:04)
[2019-03-25] MEDS: ISOSORBIDE MONO EXTENDED REL 60 MG TABCR PO SCH (08:04)
[2019-03-25] MEDS: METOPROLOL SUCC 25MG EXT REL TAB PO SCH ×2 (08:05→21:49)
[2019-03-25] MEDS: GABAPENTIN 300 MG CAP PO SCH ×2 (08:05→14:27)
[2019-03-25] MEDS: MONTELUKAST SODIUM 10 MG TABLET PO SCH (08:05)
[2019-03-25] MEDS: AMLODIPINE BESYLATE 5 MG TAB PO SCH (08:06)
--- NOTE | 2019-03-25 08:52 | Progress Note ---
DATE: 03/25/2019 DIAGNOSES: 1. Left lower extremity deep venous thrombosis. 2. Bilateral leg pain, suspected cellulitis. 3. Pleural effusion. 4. Metastatic endometrial carcinoma. SUBJECTIVE: Alix was seen and examined at bedside this morning. The primary service had Alix undergo Doppler studies which confirmed the presence of not only an acute DVT, but also chronic clot as well. She was subsequently started on Xarelto 15 mg p.o. b.i.d. The patient's leg pain is still present. She remains tender in the right side as well. 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 Nursing reports no overnight difficulties otherwise. OBJECTIVE: GENERAL: Reveals a pleasant 78-year-old female in no acute distress. VITAL SIGNS: Temperature 37, pulse 78, respiratory rate 18, blood pressure 123/68. SKIN: Without rash or lesion. There is some mild erythema, it is not well demarcated, can be appreciated this morning. HEENT: Oral mucosa without erythema or ulceration. HEART: Regular rate and rhythm. LUNGS: Clear to auscultation bilaterally. ABDOMEN: Soft, nontender, nondistended. EXTREMITIES: No clubbing, cyanosis or edema otherwise. NEUROLOGIC: She is grossly intact. LABORATORY DATA: None pending. IMPRESSION: 1. Left lower extremity deep venous thrombosis. 2. Bilateral peripheral edema attributable to paclitaxel. 3. Metastatic endometrial carcinoma. PLAN: Alix was seen and examined this morning. Reviewed Doppler studies which confirmed acute on chronic deep venous thrombosis. Recommend Xarelto 15 mg p.o. b.i.d. for 21 days followed by 20 mg daily. We will inform Dr. Hinton of the diagnosis. I would still recommend a dose modification moving forward as I believe she has a component of neuropathy as well. Primary service plans to convert her to oral antibiotics for a brief period of time. I have nothing further to add otherwise. The patient has a followup appointment with Dr. Hinton this coming and hopefully can be discharged to make the appointment. [facility]
[2019-03-25 10:02] LABS: Creatinine Clr Calc Pharmacy 24.8 ml/min; Est GFR (African American) 35.7; Est GFR (Non-African American) 30.8
--- NOTE | 2019-03-25 12:18 | Hospitalist Progress Note ---
Date of Service March 25, 2019 Assessment & Plan (1) Pacemaker: 78 yo F with PMH HTN, DM II, CAD s/p a PCI in the past, mild asthma, malignant pleural effusions presents with concerns of LE pain and found to have b/l limb swelling, erythema and tenderness and pleural effusions on CXR. b/l LE Pain - multifactorial - Bilateral leg edema with Bilateral leg cellulitis/Acute DVT -transitioning to keflex PO from IV vanc and rocephin -blood cx ordered NGTD -Dopplers ordered showing DVT in left leg -Per oncology - 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 -Pain and swelling also possibly due to combination of hypoalbuminemia and venous stasis Acute DVT Patient with DVT of LLE Has had one DVT prior to her cancer diagnosis that was treated successfully with eliquis We will treat her with xarelto 15 mg BID for first 21 days followed by 20 mg once daily indefinitely Discussed with patient risk benefit of treating her DVT. Patient with no clinical evidence of PE at this time, no tachycardia, oxygenating well on room air, troponins negative, Leg edema Echo does show some signs of right heart strain, dilated right ventricle and elevated Right ventricular systolic pressure 50-60 mmHg stockings once able to. keep legs propped up. did receive one dose lasix in ED Pleural Effusions Hypoxia - resolved -CXR: Radiographic evidence of mild pulmonary vascular congestion. Slight interval decrease in the size of the left pleural effusion, with persistent associated left basilar atelectasis/consolidation. Small subpulmonic right pleural effusion -likely malignant, secondary to Hx of endometrial carcinoma now with metastases vs CHF etiology -pt with previous admission due to hypoxemic respiratory failure Jan 2019 that required right sided pleur-X placement. Follows with Dr. Irby and had pleur X removed and pleurodesis performed on right side -BNP 3377 -IV Lasix 20 mg given in ER . Can give additional doses as necessary Endometrial Carcinoma with Metastases -Hx of endometrial cancer diagnosed in 2014 (s/p total hysterectomy with bilateral salpingo-oophorectomy, chemotherapy and brachytherapy) -pt follow with Dr. 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 -pt does not endorse any pain currently DeConditioning -Per nursing patient is supremely deconditioned and a two person max assist to get to toilet and she is very unsteady even just standing/sitting -Patient currently walks at home only occasionally using cane and drives herself -WIll get OT/PT to evaulate -May benefits from inpatient rehabilitation CAD -continue home isosorbide mononitrate 60mg once daily, crestor 5mg holding home ASA HTN -continue home metoprolol succinate 25mg ER, Amlodipine 2.5 mg Asthma -continue home inhalers PRN, and Zyrtec Hypomagnesemia -repleted in ER normal range today, will recheck am and replete as necessary FEN/GI: HH Diet DVT Prophylaxis: Rivaroxaban DNR/DNI Dispo: Med Tele (2) Bilateral lower leg cellulitis: (3) Malignant pleural effusion: (4) Hypomagnesemia: (5) Malignant pleural effusion: (6) Endometrial cancer: Supervising Physician Co-Signing Physician Notes Resident Physician Supervision Note: I independently interviewed and examined the patient and verified the mota history and physical, reviewed labs and image studies, discussed the case with the resident Dr. Carrion and agree with the findings and care plan. Subjective Alix Knight is doing better this morning reports her pain as greatly decreased. She tells me she gets around well typically, walking and driving herself at home. She lives with son and . She is not very mobile so far on this admission, and is requiring a two person full assist to get up to just the commode. She is open to the idea of rehab inpatient or outpatient and agrees to work with physical therapy today/tomorrow. Review of Systems Review of Systems: All systems reviewed & are unremarkable except as noted in HPI & below Physical Exam Physical Exam: Constitutional: Well appearing woman resting comfortably in bed, no distress while standing still but obvious discomfort with motion Eyes: Anicteric sclerae, EOMMI bilaterally Respiratory: No respiratory distress, no accessory muscle use Cardiovascular: regular rate, regular rhythm, heart sounds dual, no m/r/s/g bilateral 3+ pitting edema, calf tenderness present left worse than right GI: Abdomen soft/nontender SKin: Edematous bilateral lower extremities with erythema of distal LLE Results & Data Vital Signs (Past 12 Hours) Vital Signs Temp Pulse Pulse Resp BP BP Pulse Ox 03/25/19 11:06 36.7 C 84 18 98/56 L 94 03/25/19 07:24 78 03/25/19 07:20 37.0 C 79 18 123/68 93 03/25/19 03:06 36.9 C 77 16 122/65 96 Resident Activity Tracking Resident Involvement: Resident Care Provided Care Provided: Adult Hospital Medicine
[2019-03-25] MEDS: cephALEXin 250 MG CAP PO SCH ×2 (14:27→21:50)
[2019-03-25] MEDS: APIXABAN 5 MG TABLET PO SCH (21:49)
[2019-03-25] MEDS: GABAPENTIN 100 MG CAP PO SCH (21:49)
--- NOTE | 2019-03-26 01:23 | Hospitalist Progress Note ---
Date of Service March 26, 2019 Assessment & Plan (1) Weakness: S- received call from RN about new onset Left sided upper and lower extremity weakness. This was not signed out to RN upon shift change, so presumed to be acute. Upon interview, pt denied any weakness, CP, SOB, palpitations, sy ncope or near syncope, confusion, difficulty speaking, visual changes. O- NATHAN, EOMI, normal accomodation. No face palsy, dysarthria, or abnormal speech noted. Touch sensation intact. Equivocal decreased strength L UE/LE (unsure if 2/2 frailty or this current admission for DVT and ?cellulitis). Left visual field testing appeared to be mildly worse when compared to Right. A/P: Non con head CT ordered: No acute bleed by our read. Pending official read. Results & Data Vital Signs (Past 12 Hours) Vital Signs Temp Pulse Pulse Pulse Resp BP BP 03/25/19 23:22 37.3 C 78 20 110/58 L 03/25/19 18:07 37.6 C H 82 18 124/70 03/25/19 15:06 36.6 C 81 18 128/67 03/25/19 15:00 81 Pulse Ox 03/25/19 23:22 93 03/25/19 18:07 94 03/25/19 15:06 94 03/25/19 15:00 Resident Activity Tracking Resident Involvement: Resident Care Provided Care Provided: Adult Hospital Medicine
[2019-03-26] MEDS ORDERED: VANCOMYCIN TROUGH ONE (03:30)
[2019-03-26] MEDS: cephALEXin 250 MG CAP PO SCH ×3 (06:04→21:09)
--- NOTE | 2019-03-26 07:18 | CT Scan Report ---
CT head/brain wo con CLINICAL HISTORY: 78 years-old Female presenting with new L UE/LE weakness, history of endometrial ca ncer. TECHNIQUE: Multidetector CT imaging of the head was performed without the use of intravenous contrast . IV contrast: None. One or more dose lowering techniques were used consistent with the principles of ALARA (as low as reasonably achievable), including automatic exposure control, mA or kV adjustment t o individual patient size, and/or use of iterative reconstruction. COMPARISON: None. CT DOSE (mGy.cm): The estimated cumulative dose is 614.27 mGy.cm. FINDINGS: Spot Sprayer topogram: Unremarkable. Ventricles and sulci normal in size. No hemorrhage. Limited old cortical infarct in the right frontal lobe near the vertex. Old infarct in the left cerebellar hemisphere. Hypodense region in the right o ccipital lobe, which appears to involve overlying hanks matter as well as the subcortical white matter . No significant regional mass effect. No midline shift. No extra-axial fluid collection. Aerated sec retions in the left maxillary sinus. Calvarium intact. Absent cachil dehe lenses. IMPRESSION: 1. Subacute infarct favored in the right occipital lobe. No hemorrhagic conversion. A nonurgent cont rast enhanced MR brain could be obtained to ensure the absence of an underlying lesion given the hist ory of cancer though this is considered unlikely. 2. Limited old infarcts in the right frontal lobe cortex and left cerebellar hemisphere. 3. Aerated secretions in the left maxillary sinus suggest acute sinusitis. ACT 112: Negative or not required by law. Electronically signed by: Abdifatah Goldman M.D. 03/26/2019 7:16 AM
[2019-03-26 07:46] LABS: Basophils # (auto) 0.02 K/uL (0-0.2); Basophils % (auto) 0.7 %; Eosinophils # (auto) 0.07 K/uL (0-0.5); Eosinophils % (auto) 2.3 %; Hematocrit (blood only) 24.7 % (37-47); Hemoglobin 7.7 g/dL (12.0-16.0); Immature Granulocytes # (auto) 0.02 K/uL (0.00-0.02); Immature Granulocytes % (auto) 0.7 %; Lymphocytes # (auto) 0.92 K/uL (1.2-3.4); Lymphocytes % (auto) 30.9 %; Mean Corpuscular Hemoglobin 26.8 pg (25-34); Mean Corpuscular Hgb Conc 31.2 g/dL (32-36); Mean Corpuscular Volume 86.1 fL (80-100); Mean Platelet Volume 10.6 fL (7.4-10.4); Monocytes # (auto) 0.29 K/uL (0.11-0.59); Monocytes % (auto) 9.7 %; Neutrophils # (auto) 1.66 K/uL (1.4-6.5); Neutrophils % (auto) 55.7 %; Platelet Count 192 K/uL (130-400); RDW Coefficient of Variation 19.3 % (11.5-14.5); RDW Standard Deviation 60.4 fL (36.4-46.3); Red Blood Count 2.87 M/uL (4.2-5.4); White Blood Count 2.98 K/uL (4.8-10.8)
[2019-03-26 08:09] LABS: BUN Creatinine Ratio 21.6 (10-20); Calcium 8.2 mg/dl (8.5-10.1); Creatinine Clr Calc Pharmacy 24.1 ml/min; Est GFR (African American) 34.6; Est GFR (Non-African American) 29.9; Potassium 4.9 mmol/L (3.5-5.1)
[2019-03-26 08:29] LABS: Anisocytosis Present
[2019-03-26] MEDS: GABAPENTIN 100 MG CAP PO SCH ×3 (08:42→21:09)
[2019-03-26] MEDS: AMLODIPINE BESYLATE 5 MG TAB PO SCH (08:42)
[2019-03-26] MEDS: ISOSORBIDE MONO EXTENDED REL 60 MG TABCR PO SCH (08:43)
[2019-03-26] MEDS: PANTOprazole 40 MG TAB PO SCH (08:43)
[2019-03-26] MEDS: MONTELUKAST SODIUM 10 MG TABLET PO SCH (08:44)
[2019-03-26] MEDS: ROSUVASTATIN CALCIUM 5 MG TAB PO SCH (08:44)
[2019-03-26] MEDS: CYANOCOBALAMIN 500 MCG TABLET (VITAMIN B-12) PO SCH (08:44)
[2019-03-26] MEDS: METOPROLOL SUCC 25MG EXT REL TAB PO SCH ×2 (08:45→21:09)
[2019-03-26] MEDS: CETIRIZINE HCL 10 MG TABLET PO SCH (08:45)
[2019-03-26] MEDS: ERGOCALCIFEROL 50,000 UNITS CAP PO SCH (08:45)
[2019-03-26] MEDS: APIXABAN 5 MG TABLET PO SCH ×2 (08:47→21:10)
--- NOTE | 2019-03-26 11:35 | Neurology Consultation ---
Date of Consultation March 26, 2019 Assessment & Plan (1) Stroke: Probable subacute right occipital lobe infarct observed on CT of the head completed today. Patient does have an element of left visual field neglect/deficit as well as mild sensorimotor neglect versus weakness of the left arm and leg on examination. Significant stroke risk factors for this patient include malignancy and DVT. Paradoxical embolism may not be completely excluded. She has a history of hypertension as well although this problem appears to be controlled. I agree with anticoagulation as recently initiated given her recent diagnosis of DVT. She may continue with daily low-dose aspirin as well which she has been taking as an outpatient. She has also been taking Crestor as an outpatient. It may be worthwhile to check an up-to-date lipid panel. I also agree with MRI of the brain and MRA of the head as ordered. A contrast- enhanced brain MRI would be preferred to more thoroughly exclude an underlying metastatic focus. However, patients creatinine appears to be rising. I would also recommend a carotid ultrasound as an MRA of the neck requires contrast and will be deferred at this time. I do not think pursuing a diagnosis of PFO with a transesophageal echocardiogram would be necessary in this elderly patient. Such a diagnosis would not alter her management as it looks like she will be prescribed anticoagulation indefinitely at this point in time. Consultations with PT/OT. Patient should have outpatient ophthalmology/visual field assessments as well. Please contact me if I may be of further assistance. History of Present Illness Reason for Consultation: Stroke Requesting Physician: Elliott Carrion MD Attending Physician: Sue Hein MD History of Present Illness The patient is an 78-year-old female with a history of active endometrial cancer, recent chemotherapy, recent diagnosis of DVT, currently on anticoagulation who was noted to have left-sided weakness by nursing staff at shift change. The patient seems to be minimally aware of her difficulty with the left side. She was admitted to the hospital 3 days prior, with a complaint of bilateral leg weakness of fairly recent onset. Medical issues include bilateral lower extremity cellulitis, pleural effusions, metastatic endometrial cancer as above, coronary artery disease, and hypertension. The patient had a CT of the head completed for further assessment of her new onset left-sided weakness. The study reveals evidence of a subacute infarct within the right occipital lobe. Imaging described in further detail below. Again, the patient is minimally aware of her left-sided weakness as well as possibly some difficulty with vision off to the left. It appears as if her symptoms have been of mild to moderate severity and persistent, although exact onset not entirely clear. Additional details as below. Family history noncontributory Allergies Allergy/AdvReac Type Severity Reaction Status Date / Time animal dander Allergy Intermediate SNEEZING, Verified 03/23/19 22:06 CONGESTION grass pollen Allergy Intermediate SNEEZING, Verified 03/23/19 22:06 CONGESTION Home Medications Home Medications Medication Instructions Recorded Confirmed Type albuterol sulfate 90 mcg/actuation 2 inh INHALATION .INHALE 2 PUFFS 11/18/18 03/23/19 History aerosol inhaler EVERY PRN #3 gm cyanocobalamin (vitamin B-12) 500 500 mcg PO 3XWK tab 11/18/18 03/23/19 History mcg disintegrating tablet,sublingual ergocalciferol (vitamin D2) 1,250 50,000 unit PO DAILY #4 cap 11/18/18 03/23/19 History mcg (50,000 unit) capsule ipratropium 0.5 mg-albuterol 3 mg 3 ml INHALATION DAILY PRN #6 ml 11/18/18 03/23/19 History (2.5 mg base)/3 mL nebulization soln isosorbide mononitrate 60 mg 60 mg PO DAILY tab 11/18/18 03/23/19 History tablet,extended release 24 hr metoprolol succinate 25 mg 25 mg PO BID tab 11/18/18 03/23/19 History tablet,extended release 24 hr nitroglycerin 0.4 mg sublingual 0.4 mg SL DIRECTED PRN tab 11/18/18 03/23/19 History tablet omeprazole 20 mg capsule,delayed 20 mg PO DAILY cap 11/18/18 03/23/19 History release rosuvastatin 5 mg tablet 5 mg PO DAILY #30 tab 11/18/18 03/23/19 History montelukast 10 mg tablet 10 mg PO DAILY #90 tab 01/01/19 03/23/19 Rx cetirizine [Zyrtec] 10 mg PO DAILY 02/14/19 03/23/19 History amlodipine 2.5 mg PO DAILY 03/23/19 03/23/19 History aspirin [Aspir-81] 81 mg PO DAILY 03/23/19 03/23/19 History Patient History Medical History Arthritis (Acute) Cancer (Acute) uterine, endometrial, abdominal cancer DVT (deep venous thrombosis) (Acute) High cholesterol (Acute) History of cataract (Acute) Hypertension (Acute) Pacemaker (Acute) Surgical History History of (Acute) x3 History of carpal tunnel surgery (Acute) right hand History of hip replacement (Acute) right History of hysterectomy for cancer (Acute) History of knee replacement (Acute) b/l knees History of tonsillectomy (Acute) History of uvulectomy (Acute) Social History Preferred Language: Jordanian Communication Ability: Effective Advance Scout Required: No Beliefs That Will Affect Care: None marital status: Current Living Situation: Spouse Feels Safe at Home: Yes Smoking Status: Never smoker Second Hand Exposure: No ; Hx Alcohol Use: No Hx Substance Use: No Review of Systems Constitutional: no fever and no chills Eyes: + loss of peripheral vision Ear, Nose, Mouth, Throat: no hearing loss Respiratory: no cough and no dyspnea Cardiovascular: no chest pain and no palpitations Gastrointestinal: no nausea and no vomiting Genitourinary: no urinary incontinence Musculoskeletal: no neck pain and no myalgia Integumentary: no rash and no lesions Neurologic: as per Subjective / HPI, + localized weakness and + loss of sensation; no headache(s) Psychiatric: no depression and no anxiety Hematologic / Lymphatic: no easy bleeding and no easy bruising Physical Exam Physical Exam: The patient is a well-developed elderly female. She is alert and fully oriented. Recent and remote memory intact. Attention and concentration normal although patient does exhibit an element of left-sided neglect. Patient is able to name objects and repeat phrases. She exhibits an age-appropriate fund of knowledge and normal comprehension of vocabulary. There is a mild visual field deficit to the left. Visual acuity normal. Pupils equal round reactive to light and accommodation. Eye movements normal. There is no ptosis, nystagmus, or ophthalmoplegia. Facial sensation intact. There is no facial droop or weakness. Hearing intact. Palate elevates to midline. Shoulder shrug intact. Tongue protrudes to midline. Sensation intact to all modalities in all 4 limbs. Patient does not extinguish to double simultaneous stimulation of both the left and right side of the body. Deep tendon reflexes are intact and symmetrical for the arms and legs. Plantar responses downgoing bilaterally. The patient does exhibit a mild degree of dysmetria osyjah-hc-texi and hcie-rg-[id number] on the left, none for the right arm or leg. Ophthalmoscopic examination reveals normal-appearing optic disks and posterior segments. No papilledema or hemorrhages. Carotid pulses normal bilaterally, no bruits to auscultation. Gait and station not tested due to safety concerns. Patient exhibits mild left-sided weakness affecting the left arm and leg although weakness could be related to motor neglect rather than true corticospinal weakness. Muscle tone normal. There is no atrophy. No abnormal movements observed. Results & Data Vital Signs (Past 12 Hours) Vital Signs Temp Pulse Resp BP Pulse Ox 03/26/19 07:04 35.9 C L 82 18 131/70 91 03/25/19 23:22 37.3 C 78 20 110/58 L 93 Laboratory Results WBC 2.98, hemoglobin 7.7, hematocrit 24.7, platelet count 192, sodium 140, potassium 4.9, BUN 35, creatinine 1.61, calcium 8.2, magnesium 1.[address] of the head reveals a subacute infarct within the right occipital lobe, no hemorrhagic conversion. There is a small old chronic cortical infarct within the right frontal lobe as well as an old infarct within the left cerebellar hemisphere. I reviewed the images as well as the radiologist interpretation of this test. The possibility of a metastatic focus within the right occipital lobe was also considered. Lower extremity ultrasound reveals a left lower extremity DVT with thrombus within the left popliteal, posterior tibial, and peroneal veins. There is chronic thrombus within the left common femoral vein and superficial femoral veins as well. An echocardiogram reveals mild concentric left ventricular hypertrophy with normal left ventricular systolic function and wall motion, ejection fraction 65 to 70%. There is no mention of ASD or PFO. Electrocardiogram reveals a normal sinus rhythm, 83 bpm.
--- NOTE | 2019-03-26 14:27 | Hospitalist Progress Note ---
Date of Service March 26, 2019 Assessment & Plan (1) Stroke: 78 yo F with PMH HTN, DM II, CAD s/p a PCI in the past, mild asthma, malignant pleural effusions presents with concerns of LE pain and found to have b/l limb swelling, erythema and tenderness and pleural effusions on CXR. Ischemic Stroke Appears to have a subacute ischemic infarct of posterior aspect of parietal lobe measuring about 2 cm Patient with some mild left sided weakness and neglect No changes to therapy at this time, symptoms have been present for weeks Speech therapy ordered Patient with MRI incompatible pacer and poor renal function so will avoid MRI or CT head with contrast Doppler u/s and repeat non con head CT ordered Continue aspirin and crestor. 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 Patient with no clinical evidence of PE at this time, no tachycardia, oxygenating well on room air, troponins negative, Leg edema Echo does show some signs of right heart strain, dilated right ventricle and elevated Right ventricular systolic pressure 50-60 mmHg possibly from PE/underlying sleep apnea stockings once able to. keep legs propped up. did receive one dose lasix in ED consider outpatient sleep study Pleural Effusions -CXR: Radiographic evidence of mild pulmonary vascular congestion. Slight interval decrease in the size of the left pleural effusion, with persistent associated left basilar atelectasis/consolidation. Small subpulmonic right pleural effusion -likely malignant, secondary to Hx of endometrial carcinoma now with metastases vs CHF etiology -pt with previous admission due to hypoxemic respiratory failure Jan 2019 that required right sided pleur-X placement. Follows with Dr. Irby and had pleur X removed and pleurodesis performed on right side -BNP 3377 -IV Lasix 20 mg given in ER . Can give additional doses as necessary Endometrial Carcinoma with Metastases -Hx of endometrial cancer diagnosed in 2014 (s/p total hysterectomy with bilateral salpingo-oophorectomy, chemotherapy and brachytherapy) -pt follow with Dr. 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 DeConditioning -Per nursing patient is supremely deconditioned and a two person max assist to get to toilet and she is very unsteady even just standing/sitting -Patient currently walks at home only occasionally using cane and drives herself Even with new finding of ischemic stroke will still need to be evaluated as before for possible inpatient rehab/SNF placement -WIll get OT/PT to evaulate -May benefits from inpatient rehabilitation CAD -continue home isosorbide mononitrate 60mg once daily, crestor 5mg holding home ASA HTN -continue home metoprolol succinate 25mg ER, Amlodipine 2.5 mg Asthma -continue home inhalers PRN, and Zyrtec FEN/GI: HH Diet DVT Prophylaxis: Rivaroxaban DNR/DNI Dispo: Med Tele (2) Weakness: (3) Pacemaker: (4) Bilateral lower leg cellulitis: (5) Hypoxia: (6) Malignant pleural effusion: (7) Hypomagnesemia: (8) Malignant pleural effusion: (9) Endometrial cancer: (10) Dyspnea: (11) Hypertension: Supervising Physician Co-Signing Physician Notes Resident Physician Supervision Note: I independently interviewed and examined the patient and verified the mota history and physical, reviewed labs and image studies, discussed the case with the resident Dr. Carrion and agree with the findings and care plan. Niko Knight was noticed to be persistently weak on her left side and exhibiting some left sided neglect, night team ordered a head CT which showed a 2 cm sub acute infarct on the posterior right parietal lobe. Patient said she has noticed some left sided weakness over the last couple of weeks but nothing acute. She is otherwise feeling well and denies any shortness of breath though she is on 2 L nasal cannula and appears to get short of breath speaking with me. Review of Systems Review of Systems: All systems reviewed & are unremarkable except as noted in HPI & below Physical Exam Physical Exam: Constitutional: Frail 78 year old woman appearing stated age lying in bed exhibiting some left sided neglect Eyes: PERRLA, EOMMI bilaterally, no nystagmus ENMT: NAD Respiratory: Patient with nasal cannula in place, gets winded with conversation, lung sounds vesicular on aucultation Cardiovascular: Regular rate regular rhythm, no murmurs, rubs, skips or gallops, bilateral lower limb edema GI: Abdomen soft/nontender, no masses detected Skin: Erythema of bilateral lower limbs with edema Results & Data Vital Signs (Past 12 Hours) Vital Signs Temp Pulse Resp BP Pulse Ox 03/26/19 07:04 35.9 C L 82 18 131/70 91 Resident Activity Tracking Resident Involvement: Resident Care Provided Care Provided: Adult Hospital Medicine
--- NOTE | 2019-03-26 15:08 | Ultrasound Report ---
US carotid doppler BI HISTORY: Assess change Ischemic stroke COMPARISON: None. TECHNIQUE: Real-time, grayscale, and color Doppler sonography of the carotid arteries was performed. Imaging reviewed in the transverse and longitudinal planes. All measurements were calculated based on NASCET criteria. FINDINGS: Antegrade flow is seen in the bilateral vertebral arteries. The brachial pressures are hemodynamically similar. Dense calcification origin of the right internal carotid artery. The peak systolic velocity within the right ICA is 343. The right systolic ratio is 3.3. The peak systolic velocity within the left ICA is 102. The left systolic ratio is 0.8. IMPRESSION: 1. High-grade and critical stenosis right internal carotid artery estimated at 95% plus. 2. Plaque formation bilaterally. ACT 112: Negative or not required by law. The above report was generated using voice recognition software. It may contain grammatical, syntax or spelling errors. Electronically signed by: Sree Cerna M.D. 03/26/2019 3:07 PM
[2019-03-26] MEDS ORDERED: POLYETHYLENE (MIRALAX) 17 GM PACK PO PRN (16:49)
--- NOTE | 2019-03-26 19:18 | CT Scan Report ---
CT head/brain wo con CLINICAL HISTORY: Ischemic stroke COMPARISON STUDY: Noncontrast head CT dated 03/26/2019 TECHNIQUE: Axial CT of the brain is performed from the vertex to the skull base. IV contrast was not administered for this examination. A dose lowering technique was utilized adhering to the principles of ALARA. CT DOSE: 1311.06 mGy.cm FINDINGS: No intra or extra-axial mass lesions are visualized. There is no CT evidence of acute cortical infarc tion. There is no evidence of midline shift. There is no acute hemorrhage. No calvarial fractures ar e visualized. There are patchy white matter hypodensities likely on a small vessel basis. There is a 3 cm right occ ipital hypodensity, likely representing a subacute infarct. There is an old right frontal lobe infarc t. There is an old left cerebellar infarct. There is no evidence of pathologic ventricular dilatation. There is partial opacification of the left maxillary sinus. IMPRESSION: 1. Right occipital hypodensity, likely representing a subacute infarct. Follow-up imaging will be nec essary to exclude an underlying lesion. 2. Old infarcts involving the right frontal lobe and left cerebellar hemisphere 3. Inflammatory changes in the left maxillary sinus 4. No evidence of acute hemorrhage ACT 112: Negative or not required by law. Electronically signed by: Enrrique Patiño M.D. 03/26/2019 7:16 PM
[2019-03-27] MEDS: cephALEXin 250 MG CAP PO SCH ×3 (05:50→20:08)
[2019-03-27 06:00] LABS: Basophils # (auto) 0.01 K/uL (0-0.2); Basophils % (auto) 0.4 %; Eosinophils # (auto) 0.08 K/uL (0-0.5); Eosinophils % (auto) 2.9 %; Hematocrit (blood only) 24.8 % (37-47); Hemoglobin 7.7 g/dL (12.0-16.0); Immature Granulocytes # (auto) 0.03 K/uL (0.00-0.02); Immature Granulocytes % (auto) 1.1 %; Lymphocytes # (auto) 0.71 K/uL (1.2-3.4); Mean Corpuscular Hemoglobin 26.5 pg (25-34); Mean Corpuscular Volume 85.2 fL (80-100); Mean Platelet Volume 10.5 fL (7.4-10.4); Monocytes # (auto) 0.34 K/uL (0.11-0.59); Monocytes % (auto) 12.5 %; Neutrophils # (auto) 1.56 K/uL (1.4-6.5); Neutrophils % (auto) 57.1 %; Platelet Count 187 K/uL (130-400); RDW Coefficient of Variation 19.1 % (11.5-14.5); RDW Standard Deviation 58.8 fL (36.4-46.3); Red Blood Count 2.91 M/uL (4.2-5.4); White Blood Count 2.73 K/uL (4.8-10.8)
[2019-03-27 06:31] LABS: Hypochromasia Present
[2019-03-27 06:42] LABS: BUN Creatinine Ratio 23.1 (10-20); Calcium 8.5 mg/dl (8.5-10.1); Creatinine Clr Calc Pharmacy 30.4 ml/min; Est GFR (African American) 46.2; Est GFR (Non-African American) 39.8
[2019-03-27] MEDS: HEPARIN 100 UNIT/ML 5ML FLUSH FLUSH PRN (08:29)
[2019-03-27] MEDS: AMLODIPINE BESYLATE 5 MG TAB PO SCH (09:22)
[2019-03-27] MEDS: METOPROLOL SUCC 25MG EXT REL TAB PO SCH ×2 (09:23→20:07)
[2019-03-27] MEDS: GABAPENTIN 100 MG CAP PO SCH ×3 (09:23→20:08)
[2019-03-27] MEDS: APIXABAN 5 MG TABLET PO SCH ×2 (09:23→20:08)
[2019-03-27] MEDS: MONTELUKAST SODIUM 10 MG TABLET PO SCH (09:24)
[2019-03-27] MEDS: CETIRIZINE HCL 10 MG TABLET PO SCH (09:24)
[2019-03-27] MEDS: PANTOprazole 40 MG TAB PO SCH (09:24)
[2019-03-27] MEDS: ERGOCALCIFEROL 50,000 UNITS CAP PO SCH (09:24)
[2019-03-27] MEDS: ISOSORBIDE MONO EXTENDED REL 60 MG TABCR PO SCH (09:25)
[2019-03-27] MEDS: ROSUVASTATIN CALCIUM 5 MG TAB PO SCH (09:25)
--- NOTE | 2019-03-27 10:47 | Neurology Progress Note ---
Date of Service March 27, 2019 Assessment & Plan (1) Stroke: Subacute right occipital infarct, probably right MCA/[employer]ITY [employer] watershed. Chronic right frontal infarcts as well. Patient has mild to moderate residual left-sided weakness versus motor neglect, there is a left visual field deficit versus visual neglect as well. I suspect patient's right hemispheric infarcts are of the watershed type and due to hypoperfusion in the context of the recently identified critical stenosis of the right internal carotid artery. See discussion below. (2) Carotid stenosis, right: Critical stenosis of the right internal carotid artery as seen on carotid ultrasound. Case discussed with hospitalist at bedside. Would recommend vascular surgery consultation. Her creatinine does seem to be improving and she may be able to have a CT angiogram if necessary. Continue with daily low-dose aspirin as well as Eliquis which was recently added in light of her recent DVT. Patient is currently taking Crestor, although switching to high-dose atorvastatin may be beneficial. Would also check a fasting lipid panel. Continue to monitor patient's blood pressure, be careful not to have her pressure drop excessively as this may further exacerbate her hypoperfusion to the right cerebral hemisphere. Subjective Follow-up for stroke The patient is an 78-year-old female with active endometrial cancer, recent chemotherapy, recent diagnosis of DVT on anticoagulation, with new onset left- sided sensorimotor neglect/visual neglect. Patient continues to complain of mild to moderate left-sided weakness when specifically questioned. She denies headache or dizziness. Patient completed the requested follow-up CT of the head last night. I reviewed the images as well as the radiologist interpretation of this test. There is continued evidence of a subacute infarct within the right occipital region, more specifically watershed area between the right MCA right [employer] territory. There are old infarcts within the right frontal lobe and left cerebellar hemisphere as well. No hemorrhagic transformation. (MRI could not be completed as patient has old cardiac pacer wires that are not MRI compatible.) Carotid ultrasound completed yesterday reveals a high- grade/critical stenosis of the right internal carotid artery estimated at greater than 95%. There is bilateral plaque. Review of Systems Eyes: + blind spots Neurologic: + localized weakness and + loss of sensation; no dizziness and no headache(s) Physical Exam Physical Exam: The patient is alert and oriented to person and place. She exhibits a normal spontaneous speech pattern and is able to name objects and repeat phrases. There is dysmetria with ahtoky-yz-smnd and julo-si-wals on the left. I am unable to appreciate a carotid bruit with auscultation of either carotid. Patient exhibits a mild to moderate left hemiparesis affecting the arm and leg. Weakness in part likely related to sensorimotor neglect. Yet, patient does not extinguish to double simultaneous stimulation on the left. Patient does have a visual field deficit or neglect to the left with confrontation testing. Results & Data Vital Signs (Past 12 Hours) Vital Signs Temp Pulse Resp BP Pulse Ox 03/27/19 07:19 36.4 C L 79 22 129/72 92 03/27/19 03:52 36.6 C 81 20 125/63 93 PG Care Time/CCT Total # of Minutes Spent Total Time Spent with Patient: Total time spent is greater than 50% in coordination of care (as documented) at patient's floor/unit and/or counseling patient:
--- NOTE | 2019-03-27 11:58 | Consultation ---
Date of Consultation March 27, 2019 Assessment & Plan (1) Carotid stenosis, right: Frail 78 yo f with metastatic uterine ca and chronic malignant pleural effusions, now with apparent R hemispheric CVA and R ICA stenosis. Pt discussed with Dr Xie, does not recommend vascular surgical intervention at this time, as risks of surgery outweigh any potential benefits. This was discussed with pt and , they are agreeable to conservative antiplatelet therapy. Please call if needed. Present on Admission?: Yes History of Present Illness Reason for Consultation: R ICA stenosis, CVA Attending Physician: Sue Hein MD History of Present Illness 78 yo f with multiple medical problems, including metastatic endometrial ca, chronic malignant pleural effusions, HTN, DMII, admitted with BLE pain and found to have L arm and leg weakness, seen in consultation today for severe R ICA stenosis noted on US and R hemispheric CVA. Pt admits SOB and continues to have BLE pain and L arm and leg weakness. Admits fatigue, malaise. Denies KENT, fever, chest pain, abd pain, NV, rest pain, ulcerations, other complaints. Allergies Allergy/AdvReac Type Severity Reaction Status Date / Time animal dander Allergy Intermediate SNEEZING, Verified 03/23/19 22:06 CONGESTION grass pollen Allergy Intermediate SNEEZING, Verified 03/23/19 22:06 CONGESTION Home Medications Home Medications Medication Instructions Recorded Confirmed Type albuterol sulfate 90 mcg/actuation 2 inh INHALATION .INHALE 2 PUFFS 11/18/18 03/23/19 History aerosol inhaler EVERY PRN #3 gm cyanocobalamin (vitamin B-12) 500 500 mcg PO 3XWK tab 11/18/18 03/23/19 History mcg disintegrating tablet,sublingual ergocalciferol (vitamin D2) 1,250 50,000 unit PO DAILY #4 cap 11/18/18 03/23/19 History mcg (50,000 unit) capsule ipratropium 0.5 mg-albuterol 3 mg 3 ml INHALATION DAILY PRN #6 ml 11/18/18 03/23/19 History (2.5 mg base)/3 mL nebulization soln isosorbide mononitrate 60 mg 60 mg PO DAILY tab 11/18/18 03/23/19 History tablet,extended release 24 hr metoprolol succinate 25 mg 25 mg PO BID tab 11/18/18 03/23/19 History tablet,extended release 24 hr nitroglycerin 0.4 mg sublingual 0.4 mg SL DIRECTED PRN tab 11/18/18 03/23/19 History tablet omeprazole 20 mg capsule,delayed 20 mg PO DAILY cap 11/18/18 03/23/19 History release rosuvastatin 5 mg tablet 5 mg PO DAILY #30 tab 11/18/18 03/23/19 History montelukast 10 mg tablet 10 mg PO DAILY #90 tab 01/01/19 03/23/19 Rx cetirizine [Zyrtec] 10 mg PO DAILY 02/14/19 03/23/19 History amlodipine 2.5 mg PO DAILY 03/23/19 03/23/19 History aspirin [Aspir-81] 81 mg PO DAILY 03/23/19 03/23/19 History Patient History Medical History Arthritis (Acute) Cancer (Acute) uterine, endometrial, abdominal cancer DVT (deep venous thrombosis) (Acute) High cholesterol (Acute) History of cataract (Acute) Hypertension (Acute) Pacemaker (Acute) Surgical History History of (Acute) x3 History of carpal tunnel surgery (Acute) right hand History of hip replacement (Acute) right History of hysterectomy for cancer (Acute) History of knee replacement (Acute) b/l knees History of tonsillectomy (Acute) History of uvulectomy (Acute) Social History Preferred Language: Kiswahili Communication Ability: Effective Copier Operator Required: No Beliefs That Will Affect Care: None marital status: Current Living Situation: Spouse Feels Safe at Home: Yes Smoking Status: Never smoker Second Hand Exposure: No ; Hx Alcohol Use: No Hx Substance Use: No Review of Systems Review of Systems: All systems reviewed & are unremarkable except as noted in HPI & below Physical Exam Constitutional: well developed, + frail appearing, cooperative and comfortable; not in distress Eyes: PERRL, conjunctivae normal, anicteric sclerae ENMT: external ear and nose normal, oropharynx normal Ears: no hearing impairment Neck: trachea midline, no thyromegaly Respiratory: + abnormal respiratory effort (increased) and no respiratory distress Auscultation: + diminished lung sounds and + crackles Cardiovascular: Rate/Rhythm: regular rate and regular rhythm Vessels: + carotid bruit, femoral pulses present, posterior tibial pulses present, dorsalis pedis pulses present, brachial pulses present and radial pulses present; + abnormal peripheral pulses Extremities: normal capillary refill and + edema Gastrointestinal (Abdomen): normal bowel sounds, soft, nontender, no hepatosplenomegaly Musculoskeletal: Extremities: + abnormal strength (RLE/RUE 5/5, LLE/LUE 3/5) Skin: normal turgor, + crusts (BLE) and + erythema (faint to BLE lower legs); no ulcers and no eschar Neurologic: moves all extremities, + focal motor deficit (LUE/LLE weakness) and awake; not confused Psychiatric: A+Ox3, euthymic affect Results & Data Vital Signs (Past 12 Hours) Vital Signs Temp Pulse Resp BP BP Pulse Ox 03/27/19 11:18 36.3 C L 81 18 122/73 100 03/27/19 07:19 36.4 C L 79 22 129/72 92 03/27/19 03:52 36.6 C 81 20 125/63 93
--- NOTE | 2019-03-27 19:33 | Hospitalist Progress Note ---
Date of Service March 27, 2019 Assessment & Plan (1) Carotid stenosis, right: 78 yo F with PMH HTN, DM II, CAD s/p a PCI in the past, mild asthma, malignant pleural effusions presents with concerns of LE pain and found to have b/l limb swelling, erythema and tenderness and pleural effusions on CXR. Ischemic Stroke Appears to have a subacute ischemic infarct of posterior aspect of parietal lobe measuring about 2 cm Patient with some mild left sided weakness and neglect No changes to therapy at this time, symptoms have been present for weeks Speech therapy ordered Patient with MRI incompatible pacer and poor renal function so unable to do MRI Repeat Head CT showing no acute changes and no bleed Doppler u/s revealing right sided critical obstruction, strokes may be watershed ischemic events rather than thromboembolic evaluated by vascular surgery who do not feel she would be a good candidate for surgical intervention Continue aspirin Changed crestor to atorvastatin 40 mg will strive to avoid any hypotension to prevent further ischemic injury to right hemisphere of brain. 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 - added neurontin -Pain and swelling also possibly due to combination of hypoalbuminemia and venous stasis Pain much better controlled today Acute DVT - LLFauzia Has had one DVT prior to her cancer diagnosis that was treated successfully with eliquis Discussed with patient risk benefit of treating her DVT with anticoagulation Patient started on eliquis Patient with no clinical evidence of PE at this time, no tachycardia, no tachypnea back on room air, troponins negative, Leg edema Echo does show some signs of right heart strain, dilated right ventricle and elevated Right ventricular systolic pressure 50-60 mmHg possibly from PE/underlying sleep apnea stockings once able to. keep legs propped up. did receive one dose lasix in ED consider outpatient sleep study Pleural Effusions -CXR: Radiographic evidence of mild pulmonary vascular congestion. Slight interval decrease in the size of the left pleural effusion, with persistent associated left basilar atelectasis/consolidation. Small subpulmonic right pleural effusion -likely malignant, secondary to Hx of endometrial carcinoma now with metastases vs CHF etiology -pt with previous admission due to hypoxemic respiratory failure Jan 2019 that required right sided pleur-X placement. Follows with Dr. Irby and had pleur X removed and pleurodesis performed on right side -BNP 3377 -IV Lasix 20 mg given in ER . Can give additional doses as necessary Endometrial Carcinoma with Metastases -Hx of endometrial cancer diagnosed in 2014 (s/p total hysterectomy with bilater al salpingo-oophorectomy, chemotherapy and brachytherapy) -pt follow with Dr. 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 DeConditioning -Per nursing patient is supremely deconditioned and a two person max assist to get to toilet and she is very unsteady even just standing/sitting -Patient currently walks at home only occasionally using cane and drives herself Even with new finding of ischemic stroke will still need to be evaluated as before for possible inpatient rehab/SNF placement -WIll get OT/PT to evaulate Will likely require inpatient rehabilitation CAD -continue home isosorbide mononitrate 60mg once daily, crestor 5mg holding home ASA may go up on statin therapy HTN -continue home metoprolol succinate 25mg ER, Amlodipine 2.5 mg Asthma -continue home inhalers PRN, and Zyrtec FEN/GI: HH Diet DVT Prophylaxis: apixaban DNR/DNI Dispo: Med surg (2) Stroke: (3) Weakness: (4) Pacemaker: (5) Bilateral lower leg cellulitis: (6) Hypoxia: (7) Malignant pleural effusion: (8) Hypomagnesemia: Supervising Physician Co-Signing Physician Notes Resident Physician Supervision Note: I independently interviewed and examined the patient and verified the mota history and physical, reviewed labs and image studies, discussed the case with the resident Dr. Carrion and agree with the findings and care plan. Subjective Alix Knight is doing much the same today as yesterday. She is feeling better than she has, endorsing no difficulty breathing (On 2L nasal cannula which she wasn't on at home) and her leg pain is greatly improved. She has no acute co ncerns and is understanding of her carotid blockage on carotid scan yesterday evening and that she is not a candidate for surgical procedure. Review of Systems Review of Systems: All systems reviewed & are unremarkable except as noted in HPI & below Physical Exam Physical Exam: Constitutional: Frail 78 year old woman appearing stated age lying in bed exhibiting notable left sided neglect Eyes: PERRLA, EOMMI bilaterally, no nystagmus ENMT: NAD Respiratory: Patient with nasal cannula in place, gets winded with conversation, lung sounds vesicular on aucultation Cardiovascular: Regular rate regular rhythm, no murmurs, rubs, skips or gallops, bilateral lower limb edema GI: Abdomen soft/nontender, no masses detected Neuro: Left sided neglect, has to be consistently redirected to use the left side of her body, patient mildly weaker on left side but still able to resist me in upper and lower extremity with prompting, right side strong and equal Skin: Erythema of bilateral lower limbs with edema Results & Data Vital Signs (Past 12 Hours) Vital Signs Temp Pulse Resp BP Pulse Ox 03/27/19 15:06 36.9 C 84 16 126/69 95 03/27/19 11:18 36.3 C L 81 18 122/73 100 Resident Activity Tracking Resident Involvement: Resident Care Provided Care Provided: Adult Hospital Medicine
[2019-03-28] MEDS: cephALEXin 250 MG CAP PO SCH ×3 (05:32→20:52)
[2019-03-28 06:02] LABS: Basophils # (auto) 0.02 K/uL (0-0.2); Basophils % (auto) 0.6 %; Eosinophils # (auto) 0.11 K/uL (0-0.5); Eosinophils % (auto) 3.5 %; Hematocrit (blood only) 25.5 % (37-47); Hemoglobin 7.9 g/dL (12.0-16.0); Immature Granulocytes # (auto) 0.04 K/uL (0.00-0.02); Immature Granulocytes % (auto) 1.3 %; Lymphocytes # (auto) 0.82 K/uL (1.2-3.4); Lymphocytes % (auto) 26.1 %; Mean Corpuscular Hemoglobin 26.4 pg (25-34); Mean Corpuscular Volume 85.3 fL (80-100); Mean Platelet Volume 10.6 fL (7.4-10.4); Monocytes # (auto) 0.55 K/uL (0.11-0.59); Monocytes % (auto) 17.5 %; Nucleated RBC # (auto) 0.09 K/uL (0-0); Nucleated RBC % (auto) 2.7 %; Platelet Count 212 K/uL (130-400); RDW Coefficient of Variation 18.9 % (11.5-14.5); RDW Standard Deviation 58.3 fL (36.4-46.3); Red Blood Count 2.99 M/uL (4.2-5.4); White Blood Count 3.14 K/uL (4.8-10.8)
[2019-03-28 06:23] LABS: Hypochromasia Present
[2019-03-28 06:31] LABS: BUN Creatinine Ratio 23.5 (10-20); Calcium 8.5 mg/dl (8.5-10.1); Creatinine Clr Calc Pharmacy 35.8 ml/min; Est GFR (African American) 56.1; Est GFR (Non-African American) 48.4; Potassium 5.5 mmol/L (3.5-5.1)
[2019-03-28] MEDS: HEPARIN 100 UNIT/ML 5ML FLUSH FLUSH PRN ×2 (08:18→12:31)
[2019-03-28] MEDS: ERGOCALCIFEROL 50,000 UNITS CAP PO SCH (08:32)
[2019-03-28] MEDS: GABAPENTIN 100 MG CAP PO SCH ×3 (08:33→20:51)
[2019-03-28] MEDS: MONTELUKAST SODIUM 10 MG TABLET PO SCH (08:33)
[2019-03-28] MEDS: ATORVASTATIN 40 MG TAB PO SCH (08:33)
[2019-03-28] MEDS: CYANOCOBALAMIN 500 MCG TABLET (VITAMIN B-12) PO SCH (08:34)
[2019-03-28] MEDS: PANTOprazole 40 MG TAB PO SCH (08:34)
[2019-03-28] MEDS: APIXABAN 5 MG TABLET PO SCH ×2 (08:34→20:52)
[2019-03-28] MEDS: METOPROLOL SUCC 25MG EXT REL TAB PO SCH ×2 (08:35→20:51)
[2019-03-28] MEDS: CETIRIZINE HCL 10 MG TABLET PO SCH (08:35)
[2019-03-28] MEDS: AMLODIPINE BESYLATE 5 MG TAB PO SCH (08:35)
[2019-03-28] MEDS: ISOSORBIDE MONO EXTENDED REL 60 MG TABCR PO SCH (08:36)
[2019-03-28] MEDS ORDERED: FUROSEMIDE 20 MG in SYRINGE 0 ML IV ONE ×2 (10:00→12:00)
--- NOTE | 2019-03-28 17:39 | Hospitalist Progress Note ---
Date of Service March 28, 2019 Assessment & Plan (1) Stroke: 78 yo F with PMH HTN, DM II, CAD s/p a PCI in the past, mild asthma, malignant pleural effusions presents with concerns of LE pain and found to have b/l limb swelling, erythema and tenderness and pleural effusions on CXR. Ischemic Stroke, Causing mild left-sided weakness and left neglect Appears to have a subacute ischemic infarct of posterior aspect of right parietal lobe measuring about 2 cm Symptoms wax and wane, likely secondary to watershed ischemia with significant right-sided carotid stenosis Evaluated by vascular surgery who do not feel she would be a good candidate for surgical intervention Neurology Following, appreciate recommendations Avoid hypotension continue to medically manage with atorvastatin and aspirin Patient evaluated by PT/OT, speechappreciate recommendations Deferred MRI because incompatible Pacemaker and poor renal function Repeat Head CT showing no acute changes and no bleed BL LE Pain - multifactorial - Bilateral leg edema with Bilateral leg cellulitis/Acute DVT Initially on Rocephin and vancomycin now keflex PO, blood cx NGTD -Acute DVT on dopplerStarted on Eliquis -Per oncology - 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 - added neurontin -Pain and swelling also possibly due to combination of hypoalbuminemia and venous stasis Pain much better controlled today Acute DVT - LLFauzia Has had one DVT prior to her cancer diagnosis that was treated successfully with Eliquis Discussed with patient risk benefit of treating her DVT with anticoagulation Patient started on Eliquis Patient with no clinical evidence of PE at this time, no tachycardia, no tachypnea back on room air, troponins negative, although patient has notably increased right ventricle pressures Leg edema Echo does show some signs of right heart strain, stockings once able to. keep legs propped up. did receive one dose lasix in ED consider outpatient sleep study Acute hypoxic respiratory failure -?sec to fluid overload with underlying pleural effusion -continue O2 Acute on chronic diastolic CHF -BNP on admission 3377 -Gave 40 IV Lasix today. - follow I and O Pleural Effusions -CXR: Radiographic evidence of mild pulmonary vascular congestion. Slight interval decrease in the size of the left pleural effusion, with persistent associated left basilar atelectasis/consolidation. Small subpulmonic right pleural effusion -likely malignant, secondary to Hx of endometrial carcinoma now with metastases vs CHF etiology -pt with previous admission due to hypoxemic respiratory failure Jan 2019 that required right sided pleur-X placement. Follows with Dr. Irby and had pleur X removed and pleurodesis performed on right side Right heart dysfunction - dilated right ventricle and elevated Right ventricular systolic pressure 50-60 mmHg possibly from PE/underlying sleep apnea - consider sleep study as outpatient Hyperkalemia IV Lasix 40 mg given for volume overload should help, follow BMP Endometrial Carcinoma with Metastases -Hx of endometrial cancer diagnosed in 2014 (s/p total hysterectomy with bilateral salpingo-oophorectomy, chemotherapy and brachytherapy) -pt follow with Dr. 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 DeConditioning -Per nursing patient is supremely deconditioned and a two person max assist to get to toilet and she is very unsteady even just standing/sitting -Patient currently walks at home only occasionally using cane and drives herself Even with new finding of ischemic stroke will still need to be evaluated as before for possible inpatient rehab/SNF placement -WIll get OT/PT to evaulate Awaiting placement for inpatient rehab CAD -continue home isosorbide mononitrate 60mg once daily, crestor 5mg holding home ASA may go up on statin therapy HTN -continue home metoprolol succinate 25mg ER, Amlodipine 2.5 mg Asthma -continue home inhalers PRN, and Zyrtec FEN/GI: HH Diet DVT Prophylaxis: apixaban DNR/DNI Dispo: Awaiting placement for inpatient rehab (2) Bilateral lower leg cellulitis: (3) Carotid stenosis, right: (4) Weakness: (5) Pacemaker: (6) Hypoxia: (7) Malignant pleural effusion: (8) Hypomagnesemia: (9) Bilateral pleural effusion: (10) Hypertension: (11) Uterine cancer: Supervising Physician Co-Signing Physician Notes Resident Physician Supervision Note: I independently interviewed and examined the patient and verified the mota history and physical, reviewed labs and image studies, discussed the case with the resident Dr. Whitaker and agree with the findings and care plan. Subjective Patient reports feeling better this morning. Her leg pain is improved. She does not feel short of breath, but she still requiring oxygen. She also states that her left-sided weakness is improved. Review of Systems Constitutional: no fever, no chills and no sweats Respiratory: no cough, no dyspnea and no wheezing Cardiovascular: no chest pain, no palpitations and no edema Gastrointestinal: no abdominal pain, no nausea, no vomiting and no diarrhea/loose stools Physical Exam Constitutional: WD/WN, vitals as above Eyes: PERRL, conjunctivae normal, anicteric sclerae ENMT: external ear and nose normal, oropharynx normal Neck: trachea midline, no thyromegaly Respiratory: normal respiratory effort; no respiratory distress, no labored breathing and does not use accessory muscles Auscultation: + diminished lung sounds (Bilateral bases) and + crackles (Faint crackles bilateral bases) Cardiovascular: RRR, no murmur, no edema Gastrointestinal (Abdomen): normal bowel sounds, soft, nontender, no hepatosplenomegaly Musculoskeletal: Mild erythema bilateral legs, 1+ edema improved compared to yesterday. Improved tenderness and sensitivity of bilateral legs Results & Data Vital Signs (Past 12 Hours) Vital Signs Temp Pulse Resp BP Pulse Ox 03/28/19 15:16 36.6 C 88 18 122/71 93 03/28/19 14:00 87 L 03/28/19 07:22 36.6 C 84 18 167/80 H 95 Resident Activity Tracking Resident Involvement: Resident Care Provided Care Provided: Adult Hospital Medicine, Adult ED, Care, Pediatric Care, OB Delivery and Pediatric Care ED
[2019-03-29] MEDS: cephALEXin 250 MG CAP PO SCH ×3 (05:38→21:35)
[2019-03-29] MEDS ORDERED: FUROSEMIDE 20 MG in SYRINGE 0 ML IV ONE (08:00)
[2019-03-29] MEDS: ISOSORBIDE MONO EXTENDED REL 60 MG TABCR PO SCH (08:11)
[2019-03-29] MEDS: ATORVASTATIN 40 MG TAB PO SCH (08:11)
[2019-03-29] MEDS: APIXABAN 5 MG TABLET PO SCH ×2 (08:11→20:23)
[2019-03-29] MEDS: GABAPENTIN 100 MG CAP PO SCH ×3 (08:12→20:23)
[2019-03-29] MEDS: PANTOprazole 40 MG TAB PO SCH (08:12)
[2019-03-29] MEDS: MONTELUKAST SODIUM 10 MG TABLET PO SCH (08:12)
[2019-03-29] MEDS: AMLODIPINE BESYLATE 5 MG TAB PO SCH (08:12)
[2019-03-29] MEDS: CETIRIZINE HCL 10 MG TABLET PO SCH (08:13)
[2019-03-29] MEDS: ERGOCALCIFEROL 50,000 UNITS CAP PO SCH (08:13)
[2019-03-29] MEDS: METOPROLOL SUCC 25MG EXT REL TAB PO SCH ×2 (08:13→20:23)
[2019-03-29 08:59] LABS: BUN Creatinine Ratio 24.5 (10-20); Calcium 8.7 mg/dl (8.5-10.1); Creatinine Clr Calc Pharmacy 41.2 ml/min; Est GFR (African American) 67.3; Potassium 5.1 mmol/L (3.5-5.1)
--- NOTE | 2019-03-29 15:52 | Progress Note ---
Date of Service March 29, 2019 Assessment & Plan (1) Stroke: 78 yo F with PMH HTN, DM II, CAD s/p a PCI in the past, mild asthma, malignant pleural effusions presents with concerns of LE pain and found to have b/l limb swelling, erythema and tenderness and pleural effusions on CXR. Ischemic Stroke, causing left visual field neglect/deficit as well as mild sensorimotor neglect versus weakness of the left arm and leg Appears to have a subacute ischemic infarct of posterior aspect of right parietal lobe measuring about 2 cm Neurology consulted, appreciate recommendations. Carotid ultrasound shows critical stenosis of the right ICA, vascular surgery consulted and deemed poor candidate for surgical intervention. Deferred MRI because incompatible Pacemaker and poor renal function. Repeat Head CT showing no acute changes and no bleed. Avoid hypotension continue to medically manage with atorvastatin and aspirin Patient evaluated by PT/OT, speechappreciate recommendations. Awaiting placement. Acute hypoxic respiratory failure with evidence of pleural Effusions on CXR, requiring supplemental oxygen -likely malignant, secondary to Hx of endometrial carcinoma now with metastases vs HFpEF exacerbation vs PE -pt with previous admission due to hypoxemic respiratory failure Jan 2019 that required right sided pleur-X placement. Follows with Dr. Irby and had pleur X removed and pleurodesis performed on right side. CXR on this admission shows slight interval decrease in the size of the left pleural effusion. Patient still requiring 2L NC not normally on oxygen at home. Possible acute exacerbation of HFpEF -Repeat TTE shows EF 65 to 70%, dilated right ventricle and elevated right ventricular systolic pressure 50 to 60 mmHg. -BNP on admission 3377. -Ongoing gentle diuresis, s/p 3 doses of 20 mg IV Lasix here, output remains modest and she is net 0 L. -Creatinine remains stable, will continue to diurese and clinically reassess daily. Bilateral leg cellulitis in setting of chronic venous stasis Initially on Rocephin and vancomycin now keflex PO to finish 10 total days on , blood cx NGTD Acute LLE DVT -Acute DVT on dopplerStarted on Eliquis, to be on this indefinitely given that this is her SECOND diagnosed DVT. -presumably provoked by cancerous state -- no CT for PE done given poor renal function, and would not cell changer at this time, but presumably new oxygen requirement may also be due to possible PE. -Legs are exquisitely tender, Neurontin added given possible neuropathic element in setting of chemotherapy as below. Hyperkalemia -resolved with IV lasix. Etiology unclear. Cont to follow BMP. FEN/GI: HH Diet, to be cautious with fluids given heart failure. Continue home pantoprazole 40 daily. DVT Prophylaxis: apixaban DNR/DNI Dispo: Awaiting placement for inpatient rehab Ongoing chronic medical conditions: Endometrial Carcinoma with Metastases, pancytopenia -Hx of endometrial cancer diagnosed in 2014 (s/p total hysterectomy with bilateral salpingo-oophorectomy, chemotherapy and brachytherapy) -pt follow with Dr. 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 Deconditioning -Per nursing patient is supremely deconditioned and a two person max assist to get to toilet and she is very unsteady even just standing/sitting -Patient currently walks at home only occasionally using cane and drives herself Awaiting placement for inpatient rehab Asthma/JACQUELYN -Intolerant of CPAP. -Continue home albuterol as needed, DuoNeb as needed, montelukast, cetirizine. CAD -No acute issues, continue home isosorbide mononitrate 60mg once daily, crestor 5mg, resume aspirin. HTN -continue home metoprolol succinate 25mg ER, Amlodipine 2.5 mg. To avoid hypotension given cerebral deficits as above. (2) Bilateral lower leg cellulitis: (3) Carotid stenosis, right: (4) Weakness: (5) Pacemaker: (6) Hypoxia: (7) Malignant pleural effusion: (8) Hypomagnesemia: (9) Bilateral pleural effusion: (10) Hypertension: (11) Uterine cancer: Supervising Physician Co-Signing Physician Notes Resident Physician Supervision Note: I independently interviewed and examined the patient and verified the mota history and physical, reviewed labs and image studies, discussed the case with the resident Dr. Whitaker and agree with the findings and care plan. Subjective Sitting upright in bed, still requiring 2 L of oxygen. Somewhat dyspneic, but patient does not complain of this. She is anxious to go home. She is tolerating p.o. No acute events overnight. Review of Systems Review of Systems: All systems reviewed & are unremarkable except as noted in HPI & below Denies chest pressure, denies chest tightness, denies dyspnea with exertion. Toileting appropriately. Physical Exam Physical Exam: Vitals noted and within normal limits with the exception of hypoxia, 93% on 2 L. GENERAL: Awake, alert to person, place, and time, nontoxic-appearing, in no distress. HENT: Normocephalic, atraumatic. Nasal cannula in place. Mucus membranes appear moist. EYES: Normal conjunctiva. Sclera non-icteric. EOMI. NECK: Supple. Full range of motion. No JVD. RESPIRATORY: Clear to auscultation. Mildly increased work of breathing. CARDIAC: Regular rate, normal rhythm. Extremities warm and well perfused. ABDOMEN: Soft, non-distended. No tenderness to palpation in all four quadrants. No rebound or guarding. No masses. Bowel sounds are normal. LOWER EXTREMITIES: Inspection of calves reveal equal size bilaterally. They are exquisitely tender. Trace edema. With mild erythematous discoloration. NEURO: Left-sided neglect, left-sided upper and lower extremity weakness. Sensation intact bilaterally. CN II-XII grossly in tact. . SKIN: Rash not present. No jaundice noted. Significant lesions include erythema of bilateral lower extremities. PSYCH: Appropriate mood and affect. Cooperative. Exam as done by Jessica Whitaker MD, Fast Food Assistant Restaurant Manager. Results & Data Vital Signs (Past 12 Hours) Vital Signs Temp Pulse Resp BP BP Pulse Ox 03/29/19 11:32 36.4 C L 80 18 142/63 H 97 03/29/19 07:05 36.8 C 84 20 162/73 H 94 03/29/19 04:00 36.4 C L 93 H 19 159/73 H 94 Laboratory Results 03/29/19 Range/Units 08:15 Sodium 142 (136-145) mmol/L Potassium 5.1 (3.5-5.1) mmol/L Chloride 112 H (98-107) mmol/L Carbon Dioxide 25 (21-32) mmol/L Anion Gap 5.0 (3-11) BUN 23 H (7-18) mg/dl Creatinine 0.93 (0.6-1.2) mg/dl Est Cr Clr Drug Dosing 41.2 ml/min Est GFR ( Amer) 67.3 Est GFR (Non-Af Amer) 58.0 BUN/Creatinine Ratio 24.5 H (10-20) Glucose 108 H (70-99) mg/dl Calcium 8.7 (8.5-10.1) mg/dl Resident Activity Tracking Resident Involvement: Resident Care Provided Care Provided: Adult [facility] Medicine
[2019-03-30] MEDS: cephALEXin 250 MG CAP PO SCH ×3 (05:58→21:20)
[2019-03-30 06:26] LABS: BUN Creatinine Ratio 24.1 (10-20); Calcium 8.7 mg/dl (8.5-10.1); Creatinine Clr Calc Pharmacy 40.4 ml/min; Est GFR (African American) 65.6; Est GFR (Non-African American) 56.6; Potassium 5.1 mmol/L (3.5-5.1)
[2019-03-30] MEDS ORDERED: FUROSEMIDE 20 MG in SYRINGE 0 ML IV ONE (08:00)
[2019-03-30] MEDS: ATORVASTATIN 40 MG TAB PO SCH (08:06)
[2019-03-30] MEDS: ISOSORBIDE MONO EXTENDED REL 60 MG TABCR PO SCH (08:06)
[2019-03-30] MEDS: GABAPENTIN 100 MG CAP PO SCH ×3 (08:06→21:19)
[2019-03-30] MEDS: METOPROLOL SUCC 25MG EXT REL TAB PO SCH ×2 (08:06→21:20)
[2019-03-30] MEDS: ERGOCALCIFEROL 50,000 UNITS CAP PO SCH (08:07)
[2019-03-30] MEDS: MONTELUKAST SODIUM 10 MG TABLET PO SCH (08:07)
[2019-03-30] MEDS: AMLODIPINE BESYLATE 5 MG TAB PO SCH (08:07)
[2019-03-30] MEDS: CETIRIZINE HCL 10 MG TABLET PO SCH (08:08)
[2019-03-30] MEDS: PANTOprazole 40 MG TAB PO SCH (08:08)
[2019-03-30] MEDS: APIXABAN 5 MG TABLET PO SCH ×2 (08:08→21:19)
[2019-03-30] MEDS: HEPARIN 100 UNIT/ML 5ML FLUSH FLUSH PRN (08:39)
[2019-03-30] MEDS: ASPIRIN 81 MG ECTAB PO SCH (08:41)
--- NOTE | 2019-03-30 12:43 | Progress Note ---
Date of Service March 30, 2019 Assessment & Plan (1) Stroke: 78 yo F with PMH HTN, DM II, CAD s/p a PCI in the past, mild asthma, malignant pleural effusions presents with concerns of LE pain and found to have b/l limb swelling, erythema and tenderness and pleural effusions on CXR. Ischemic Stroke, causing left visual field neglect/deficit as well as mild sensorimotor neglect versus weakness of the left arm and leg Appears to have a subacute ischemic infarct of posterior aspect of right parietal lobe measuring about 2 cm Neurology consulted, appreciate recommendations. Carotid ultrasound shows critical stenosis of the right ICA, vascular surgery consulted and deemed poor candidate for surgical intervention. Deferred MRI because incompatible Pacemaker and poor renal function. Repeat Head CT showing no acute changes and no bleed. Avoid hypotension continue to medically manage with atorvastatin and aspirin Patient evaluated by PT/OT, speechappreciate recommendations. Awaiting placement. Acute respiratory failure with evidence of pleural Effusions on CXR, requiring supplemental oxygen -likely malignant, secondary to Hx of endometrial carcinoma now with metastases vs HFpEF exacerbation vs PE -pt with previous admission due to hypoxemic respiratory failure Jan 2019 that required right sided pleur-X placement. Follows with Dr. Irby and had pleur X removed and pleurodesis performed on right side. CXR on this admission shows slight interval decrease in the size of the left pleural effusion. Patient still requiring 2L NC not normally on oxygen at home. Acute exacerbation of HFpEF -Repeat TTE shows EF 65 to 70%, dilated right ventricle and elevated right ventricular systolic pressure 50 to 60 mmHg. -BNP on admission 3377. -s/p 20 mg IV Lasix x3 here. -Appears euvolemic, no additional diuresis ordered today. Bilateral leg cellulitis in setting of chronic venous stasis Initially on Rocephin and vancomycin now keflex PO to finish 7 total days on , blood cx NGTD Acute LLE DVT -Acute DVT on dopplerStarted on Eliquis, to be on this indefinitely given that this is her SECOND diagnosed DVT. -presumably provoked by cancerous state -- no CT for PE done given poor renal function, and would not change management specialist at this time, but presumably new oxygen requirement may also be due to possible PE. -Legs are exquisitely tender, Neurontin added given possible neuropathic element in setting of chemotherapy as below. Hyperkalemia -resolved with IV lasix. Etiology unclear. Endometrial Carcinoma with Metastases, pancytopenia -Hx of endometrial cancer diagnosed in 2014 (s/p total hysterectomy with bilateral salpingo-oophorectomy, chemotherapy and brachytherapy) -pt follow with Dr. 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 -Continue hydrocodone. Deconditioning -Per nursing patient is supremely deconditioned and a two person max assist to get to toilet and she is very unsteady even just standing/sitting -Patient currently walks at home only occasionally using cane and drives herself Awaiting placement for inpatient rehab Asthma/JACQUELYN -Intolerant of CPAP. -Continue home albuterol as needed, DuoNeb as needed, montelukast, cetirizine. CAD -No acute issues, continue home isosorbide mononitrate 60mg once daily, crestor 5mg, resume aspirin. HTN -continue home metoprolol succinate 25mg ER, Amlodipine 2.5 mg. To avoid hypotension given cerebral deficits as above. FEN/GI: HH Diet, to be cautious with fluids given heart failure. Continue home pantoprazole 40 daily. DVT Prophylaxis: apixaban DNR/DNI Dispo: Awaiting placement for inpatient rehab Supervising Physician Co-Signing Physician Notes Resident Physician Supervision Note: I independently interviewed and examined the patient and verified the mota history and physical, reviewed labs and image studies, discussed the case with the resident Dr. Whitaker and agree with the findings and care plan. Subjective Sitting upright in bed, stable oxygen requirement at 2 L NC. Still somewhat dyspneic, but patient still does not complain of this. She is anxious to go home. She is tolerating p.o. No acute events overnight. Review of Systems Review of Systems: All systems reviewed & are unremarkable except as noted in HPI & below Physical Exam Physical Exam: Vitals noted and within normal limits with the exception of hypoxia, maintaining 93% on 2 L. GENERAL: Awake, alert to person, place, and time, nontoxic-appearing, in no dist ress. HENT: Normocephalic, atraumatic. Nasal cannula in place. Mucus membranes appear moist. EYES: Normal conjunctiva. Sclera non-icteric. EOMI. NECK: Supple. Full range of motion. No JVD. RESPIRATORY: Clear to auscultation. Stable, mild increased work of breathing. CARDIAC: Extremities warm and well perfused. ABDOMEN: Soft, non-distended. LOWER EXTREMITIES: Inspection of calves reveal equal size bilaterally. They are exquisitely tender. Trace edema. With mild erythematous discoloration. NEURO: Left-sided neglect, left-sided upper and lower extremity weakness. Sensation intact bilaterally. CN II-XII grossly in tact. PSYCH: Appropriate mood and affect. Cooperative. Exam as done by Jessica Whitaker MD, [employer]. Results & Data Vital Signs (Past 12 Hours) Vital Signs Temp Pulse Resp BP Pulse Ox 03/30/19 07:10 36.9 C 80 20 147/71 H 93 03/30/19 03:02 36.6 C 83 23 150/74 H 94 Laboratory Results 03/30/19 Range/Units 05:05 Sodium 141 (136-145) mmol/L Potassium 5.1 (3.5-5.1) mmol/L Chloride 112 H (98-107) mmol/L Carbon Dioxide 26 (21-32) mmol/L Anion Gap 3.0 (3-11) BUN 23 H (7-18) mg/dl Creatinine 0.95 (0.6-1.2) mg/dl Est Cr Clr Drug Dosing 40.4 ml/min Est GFR ( Amer) 65.6 Est GFR (Non-Af Amer) 56.6 BUN/Creatinine Ratio 24.1 H (10-20) Glucose 102 H (70-99) mg/dl Calcium 8.7 (8.5-10.1) mg/dl Resident Activity Tracking Resident Involvement: Resident Care Provided Care Provided: Adult Hospital Medicine
[2019-03-31] MEDS: cephALEXin 250 MG CAP PO SCH (06:08)
[2019-03-31 06:10] LABS: BUN Creatinine Ratio 23.7 (10-20); Calcium 8.9 mg/dl (8.5-10.1); Creatinine Clr Calc Pharmacy 39.8 ml/min; Est GFR (African American) 64.7; Est GFR (Non-African American) 55.9; Potassium 5.1 mmol/L (3.5-5.1)
[2019-03-31] MEDS: GABAPENTIN 100 MG CAP PO SCH ×3 (07:46→20:47)
[2019-03-31] MEDS: METOPROLOL SUCC 25MG EXT REL TAB PO SCH ×2 (07:47→20:47)
[2019-03-31] MEDS: CYANOCOBALAMIN 500 MCG TABLET (VITAMIN B-12) PO SCH (07:47)
[2019-03-31] MEDS: APIXABAN 5 MG TABLET PO SCH ×2 (07:47→20:46)
[2019-03-31] MEDS: CETIRIZINE HCL 10 MG TABLET PO SCH (07:48)
[2019-03-31] MEDS: ATORVASTATIN 40 MG TAB PO SCH (07:48)
[2019-03-31] MEDS: AMLODIPINE BESYLATE 5 MG TAB PO SCH (07:48)
[2019-03-31] MEDS: PANTOprazole 40 MG TAB PO SCH (07:49)
[2019-03-31] MEDS: ASPIRIN 81 MG ECTAB PO SCH (07:49)
[2019-03-31] MEDS: MONTELUKAST SODIUM 10 MG TABLET PO SCH (07:50)
[2019-03-31] MEDS: ERGOCALCIFEROL 50,000 UNITS CAP PO SCH (07:50)
[2019-03-31] MEDS: ISOSORBIDE MONO EXTENDED REL 60 MG TABCR PO SCH (07:50)
--- NOTE | 2019-03-31 15:14 | Hospitalist Progress Note ---
Date of Service March 31, 2019 Assessment & Plan (1) Stroke: 78 yo F with PMH HTN, DM II, CAD s/p a PCI in the past, mild asthma, malignant pleural effusions presents with concerns of LE pain and found to have b/l limb swelling, erythema and tenderness and pleural effusions on CXR. Ischemic Stroke, causing left visual field neglect/deficit as well as mild sensorimotor neglect versus weakness of the left arm and leg Appears to have a subacute ischemic infarct of posterior aspect of right parietal lobe measuring about 2 cm Neurology consulted, appreciate recommendations. Carotid ultrasound shows critical stenosis of the right ICA, vascular surgery consulted and deemed poor candidate for surgical intervention. Deferred MRI because incompatible Pacemaker and poor renal function. Repeat Head CT showing no acute changes and no bleed. Avoid hypotension continue to medically manage with atorvastatin and aspirin Patient evaluated by PT/OT, speechappreciate recommendations. Awaiting placement. Dyspneic with evidence of pleural Effusions on CXR, requiring supplemental oxygen -likely malignant, secondary to Hx of endometrial carcinoma now with metastases vs HFpEF exacerbation vs PE as above -pt with previous admission due to hypoxemic respiratory failure Jan 2019 that required right sided pleur-X placement. Follows with Dr. Irby and had pleur X removed and pleurodesis performed on right side. CXR on this admission shows slight interval decrease in the size of the left pleural effusion. Patient still requiring 2L NC not normally on oxygen at home this could very well be from clot burden HFpEF -Repeat TTE shows EF 65 to 70%, dilated right ventricle and elevated right ventricular systolic pressure 50 to 60 mmHg. -BNP on admission 3377. -s/p one-time doses of 20 mg IV Lasix x3 here. -Appears euvolemic, no additional diuresis ordered today. Bilateral leg cellulitis in setting of chronic venous stasis Initially on Rocephin and vancomycin now keflex PO to finish 10 total days on , blood cx NGTD Acute LLE DVT -Acute DVT on dopplerStarted on Eliquis, to be on this indefinitely given that this is her SECOND diagnosed DVT. -presumably provoked by cancerous state -- no CT for PE done given poor renal function, and would not private branch exchange operator at this time, but presumably new oxygen requirement may also be due to possible PE. -Legs are exquisitely tender, Neurontin added given possible neuropathic element in setting of chemotherapy as below. Hyperkalemia -resolved with IV lasix. Etiology unclear. FEN/GI: HH Diet, to be cautious with fluids given heart failure. Continue home pantoprazole 40 daily. DVT Prophylaxis: apixaban DNR/DNI Dispo: Awaiting placement for inpatient rehab will hopefully be going to [facility] Ongoing chronic medical conditions: Endometrial Carcinoma with Metastases, pancytopenia -Hx of endometrial cancer diagnosed in 2014 (s/p total hysterectomy with bilateral salpingo-oophorectomy, chemotherapy and brachytherapy) -pt follow with Dr. 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 -Continue hydrocodone. Deconditioning -Per nursing patient is supremely deconditioned and a two person max assist to get to toilet and she is very unsteady even just standing/sitting -Patient currently walks at home only occasionally using cane and drives herself Awaiting placement for inpatient rehab Asthma/JACQUELYN -Intolerant of CPAP. -Continue home albuterol as needed, DuoNeb as needed, montelukast, cetirizine. CAD -No acute issues, continue home isosorbide mononitrate 60mg once daily, crestor 5mg, resume aspirin. HTN -continue home metoprolol succinate 25mg ER, Amlodipine 2.5 mg. To avoid hypotension given cerebral deficits as above. Supervising Physician Co-Signing Physician Notes I personally examined the patient and verified all mota points of history and exam, discussed case, and agree with decision making with Dr Carrion. No new complaints. Able to look over to see me on the left side of her bed, and gently is able to grasp my hand. No other new problems identified. Vitals noted, in general she is awake and alert pleasant no distress. Left-sided weakness and a degree of neglect, but seems to be better than it was described previously. Skin shows no rashes no pallor or icterus. Breathing unlabored no accessory muscle use good effort. Ischemic strokesupportive care, secondary risk reduction, PT/OT eval and treat. Otherwise as above. Dispositionstable for SNF once bed is available. Niko Knight is resting comfortably in bed this morning with no acute complaints. She is notably looking around both sides of the room and not just the right side which is an improvement since the last time I had seen her. When I brought this up to her and her they were in agreement that they had seen some degree of improvement in her status and above all else want to start therapy post haste. Review of Systems Review of Systems: All systems reviewed & are unremarkable except as noted in HPI & below Physical Exam Physical Exam: Constitutional: Frail 78 year old woman appearing stated age lying in bed exhibiting improved left sided neglect Eyes: PERRLA, EOMMI bilaterally, no nystagmus ENMT: NAD Respiratory: Patient with nasal cannula in place, gets winded with conversation, lung sounds vesicular on auscultation Cardiovascular: Regular rate regular rhythm, no murmurs, rubs, skips or gallops, bilateral lower limb edema GI: Abdomen soft/nontender, no masses detected Neuro: Left sided neglect, has to be consistently redirected to use the left side of her body, patient mildly weaker on left side but still able to resist me in upper and lower extremity with prompting, right side strong and equal Skin: Erythema of bilateral lower limbs with edema Results & Data Vital Signs (Past 12 Hours) Vital Signs Temp Pulse Resp BP Pulse Ox 03/31/19 15:00 36.5 C 85 16 117/66 92 03/31/19 11:50 36.7 C 78 20 135/77 98 03/31/19 07:00 36.8 C 84 18 147/75 H 95 03/31/19 04:00 36.6 C 80 20 145/79 H 93 Resident Activity Tracking Resident Involvement: Resident Care Provided Care Provided: Adult Hospital Medicine
--- NOTE | 2019-03-31 17:06 | Billing Data ---
Date of Service March 31, 2019 Coding Level of Care Code 98587 Subseq Hosp Care Lvl 2
[2019-03-31] MEDS: cephALEXin 500 MG CAP PO SCH (17:27)
[2019-04-01] MEDS: cephALEXin 500 MG CAP PO SCH (06:09)
[2019-04-01 07:11] LABS: BUN Creatinine Ratio 21.7 (10-20); Calcium 8.9 mg/dl (8.5-10.1); Creatinine Clr Calc Pharmacy 35.4 ml/min; Est GFR (African American) 56.1; Est GFR (Non-African American) 48.4; Potassium 5.3 mmol/L (3.5-5.1)
[2019-04-01] MEDS: METOPROLOL SUCC 25MG EXT REL TAB PO SCH (08:59)
[2019-04-01] MEDS: AMLODIPINE BESYLATE 5 MG TAB PO SCH (08:59)
[2019-04-01] MEDS: ATORVASTATIN 40 MG TAB PO SCH (08:59)
[2019-04-01] MEDS: MONTELUKAST SODIUM 10 MG TABLET PO SCH (08:59)
[2019-04-01] MEDS: GABAPENTIN 100 MG CAP PO SCH (08:59)
[2019-04-01] MEDS: CETIRIZINE HCL 10 MG TABLET PO SCH (08:59)
[2019-04-01] MEDS: ASPIRIN 81 MG ECTAB PO SCH (09:00)
[2019-04-01] MEDS: PANTOprazole 40 MG TAB PO SCH (09:00)
[2019-04-01] MEDS: APIXABAN 5 MG TABLET PO SCH (09:00)
[2019-04-01] MEDS: ISOSORBIDE MONO EXTENDED REL 60 MG TABCR PO SCH (09:00)
[2019-04-01] MEDS: ERGOCALCIFEROL 50,000 UNITS CAP PO SCH (09:01)
--- NOTE | 2019-04-01 11:29 | Discharge Summary ---
Date of Service April 01, 2019 Admission HPI Per Admitting Provider 78 yo F with a PMH of HTN, DM, CAD s/p a PCI in the past, mild asthma, malignant pleural effusions presents to [facility] with concerns of b/l leg weakness. First noticed this today. Pt noted some pain when walking up stairs to use restroom in house. Pain is constant, worse with movement, and relieved only by sitting still. Today pt also noted some redness to LE b/l as well. This is the first such occurrence of these symptoms for pt. Associated chills, but otherwise denies any fevers, CP, SOB, abd pain, N/V. Denies any recent trauma or falls. Otherwise, pt does not wear oxygen all the time, but she was at 85% at home and 88% on the way to the hospital. Of note, pt was diagnosed with endometrial cancer in 2104 for which she underwent a PAOLO-BSO followed by chemotherapy and brachytherapy. She was noted to have ascites Fall 2018 and underwent a paracentesis on 12/26/18--the fluid revealed metastatic adenocarcinoma concerning for uterine/ovarian primary. 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 Pt is followed by Dr. Hinton and is currently receiving chemotherapy. Her last chemo treatment was 4 days ago. Pertinent Labs: Hgb 8.1, Cr 1.55, Mg 1.3, BNP 3377, Albumin 2.6 CXR: Radiographic evidence of mild pulmonary vascular congestion. Slight interval decrease in the size of the left pleural effusion, with persistent associated left basilar atelectasis/consolidation. Small subpulmonic right pleural effusion ER Course: IV MgSO4 1g Social Hx- denies tobacco, alcohol, illicit drug use Surgical Hx- x3, carpal tunnel right hand, R hip replacement, hysterectomy for cancer, b/l knee replacement, tonsillectomy, uvulectomy Admission Exam Per Admitting Provider Constitutional: WD/WN, vitals as above Eyes: PERRL, conjunctivae normal, anicteric sclerae ENMT: external ear and nose normal, oropharynx normal Respiratory: normal respiratory effort; no respiratory distress and no labored breathing Auscultation: + diminished lung sounds and + rales Cardiovascular: RRR, no murmur, no edema Chest (Breasts): Chest: + pacemaker Gastrointestinal (Abdomen): normal bowel sounds, soft, nontender, no hepatosplenomegaly Skin: b/l LE erythema from knee inferiorly Psychiatric: A+Ox3, euthymic affect Lymphatic: 2-3+ pitting edema LE Principal Diagnosis CVA Venous thromboembolic disease Metastatic Endometrial Cancer Discharge Exam Constitutional: Frail 78 year old woman appearing stated age lying in bed exhibiting mild left sided neglect with gaze and movement Eyes: PERRLA, EOMMI bilaterally, no nystagmus ENMT: NAD Respiratory: Patient with nasal cannula in place, gets winded with conversation, lung sounds vesicular on auscultation Cardiovascular: Regular rate regular rhythm, no murmurs, rubs, skips or gallops, bilateral lower limb edema GI: Abdomen soft/nontender, no masses detected Neuro: Left sided neglect, has to be consistently redirected to use the left side of her body, patient mildly weaker on left side but still able to resist me in upper and lower extremity with prompting, right side strong and equal Skin: Erythema of bilateral lower limbs with 3 + edema Discharge Data Allergies Allergy/AdvReac Type Severity Reaction Status Date / Time animal dander Allergy Intermediate SNEEZING, Verified 03/23/19 22:06 CONGESTION grass pollen Allergy Intermediate SNEEZING, Verified 03/23/19 22:06 CONGESTION Consultations 03/23/19 22:47 ED Decision to Admit Stat 03/24/19 02:01 Consult Case Management - Discharge Planning Routine Consult Hematology Routine 03/26/19 07:06 Consult Neurology Routine 03/27/19 09:42 Consult Vascular Surgery Routine Ordered Studies 03/24/19 09:39 US venous doppler LE BI Routine 03/26/19 00:48 CT head/brain wo con Urgent 03/26/19 11:32 US carotid doppler BI Routine 03/26/19 23:15 CT head/brain wo con Routine Hospital Course (1) Stroke: Mrs. Alix Knight is an with PMH HTN, DM II, CAD s/p a PCI in the past, mild asthma, malignant pleural effusions presents with concerns of LE pain and found to have b/l limb swelling, erythema and tenderness and pleural effusions on CXR. Ischemic Stroke, causing left visual field neglect/deficit as well as mild sensorimotor neglect versus weakness of the left arm and leg Appears to have a subacute ischemic infarct of posterior aspect of right pariet al lobe measuring about 2 cm Neurology consulted, appreciate recommendations. Carotid ultrasound shows critical stenosis of the right ICA, vascular surgery consulted and deemed poor candidate for surgical intervention. Deferred MRI because incompatible Pacemaker and poor renal function. Repeat Head CT showing no acute changes and no bleed. Avoid hypotension continue to medically manage with atorvastatin and aspirin Patient evaluated by PT/OT, speech and okay for rehabilitation, regular diet Dyspneic with evidence of pleural Effusions on CXR, requiring supplemental oxygen -likely malignant, secondary to Hx of endometrial carcinoma now with metastases vs HFpEF exacerbation vs PE as above -pt with previous admission due to hypoxemic respiratory failure Jan 2019 that required right sided pleur-X placement. Follows with Dr. Irby and had pleur X removed and pleurodesis performed on right side. CXR on this admission shows slight interval decrease in the size of the left pleural effusion. Patient still requiring 2L NC not normally on oxygen at home this could very well be from clot burden burden HFpEF -Repeat TTE shows EF 65 to 70%, dilated right ventricle and elevated right ventricular systolic pressure 50 to 60 mmHg. -BNP on admission 3377. -s/p one-time doses of 20 mg IV Lasix x3 here. -Appears euvolemic, no additional diuresis ordered today. Bilateral leg cellulitis in setting of chronic venous stasis Initially on Rocephin and vancomycin followed by keflex until today. -Patient unclear if ever truly had cellulitis, recommend continuing to monitor Acute LLE DVT -Acute DVT on dopplerStarted on Eliquis, to be on this indefinitely given that this is her SECOND diagnosed DVT. -presumably provoked by cancerous state -- no CT for PE done given poor renal function, and would not exchange administrator at this time, but presumably new oxygen requirement may also be due to possible PE. -Legs are exquisitely tender, Neurontin added given possible neuropathic element in setting of chemotherapy as below. Hyperkalemia -resolved with IV lasix. Etiology unclear. -5.5 on day of admission, recommend rechecking later this week -Patient without major renal dysfunction Endometrial Carcinoma with Metastases, pancytopenia -Hx of endometrial cancer diagnosed in 2014 (s/p total hysterectomy with bilateral salpingo-oophorectomy, chemotherapy and brachytherapy) -pt follow with Dr. Hinton and receiving chemotherapy through port every -continue Vit D, B administration -Heme-onc consulted believe pain related to neuropathy from paclitaxel -- added neurontin 200 mg 3 times daily here, seems to be tolerating this well -Continue hydrocodone. Deconditioning -Per nursing patient is supremely deconditioned and a two person max assist to get to toilet and she is very unsteady even just standing/sitting -Patient currently walks at home only occasionally using cane and drives herself Awaiting placement for inpatient rehab Asthma/JACQUELYN -Intolerant of CPAP. -Continue home albuterol as needed, DuoNeb as needed, montelukast, cetirizine. CAD -No acute issues, continue home isosorbide mononitrate 60mg once daily, crestor 5mg, resume aspirin. HTN -continue home metoprolol succinate 25mg ER, Amlodipine 2.5 mg. To avoid hypotension given cerebral deficits as above. DNR/DNI Total Time Total Time Spent Total Time Spent (In Minutes): <30 Discharge Plan Discharge Items Patient Disposition: Transfer [facility] Fac Reason For Visit: WEAKNESS, Discharge Diagnosis: ischemic Stroke, Paclitaxel induced neuropathy, metastatic endometrial cancer Activity: Per Instructions section Non-emergency contact: Primary Care Provider and Oncologist Call non-emergency contact if: you have any medication questions, your symptoms worsen, your pain is not controlled and your rectal temperature is above 100.4 Follow-up/Referrals: Sree Guzman MD [Primary Care Provider] - Diet: Heart Healthy Addtl Attending Provider Instructions: Mrs. Alix Knight is an with PMH HTN, DM II, CAD s/p a PCI in the past, mild asthma, malignant pleural effusions presents with concerns of LE pain and found to have b/l limb swelling, erythema and tenderness and pleural effusions on CXR. Ischemic Stroke, causing left visual field neglect/deficit as well as mild sensorimotor neglect versus weakness of the left arm and leg Appears to have a subacute ischemic infarct of posterior aspect of right parietal lobe measuring about 2 cm Neurology consulted, appreciate recommendations. Carotid ultrasound shows critical stenosis of the right ICA, vascular surgery consulted and deemed poor candidate for surgical intervention. Deferred MRI because incompatible Pacemaker and poor renal function. Repeat Head CT showing no acute changes and no bleed. Avoid hypotension continue to medically manage with atorvastatin and aspirin Patient evaluated by PT/OT, speech and okay for rehabilitation, regular diet Dyspneic with evidence of pleural Effusions on CXR, requiring supplemental oxygen -likely malignant, secondary to Hx of endometrial carcinoma now with metastases vs HFpEF exacerbation vs PE as above -pt with previous admission due to hypoxemic respiratory failure Jan 2019 that required right sided pleur-X placement. Follows with Dr. Irby and had pleur X removed and pleurodesis performed on right side. CXR on this admission shows slight interval decrease in the size of the left pleural effusion. Patient still requiring 2L NC not normally on oxygen at home this could very well be from clot burden burden HFpEF -Repeat TTE shows EF 65 to 70%, dilated right ventricle and elevated right ventricular systolic pressure 50 to 60 mmHg. -BNP on admission 3377. -s/p one-time doses of 20 mg IV Lasix x3 here. -Appears euvolemic, no additional diuresis ordered today. Bilateral leg cellulitis in setting of chronic venous stasis Initially on Rocephin and vancomycin followed by keflex until today. -Patient unclear if ever truly had cellulitis, recommend continuing to monitor Acute LLE DVT -Acute DVT on dopplerStarted on Eliquis, to be on this indefinitely given that this is her SECOND diagnosed DVT. -presumably provoked by cancerous state -- no CT for PE done given poor renal function, and would not exchange administrator at this time, but presumably new oxygen requirement may also be due to possible PE. -Legs are exquisitely tender, Neurontin added given possible neuropathic element in setting of chemotherapy as below. Hyperkalemia -resolved with IV lasix. Etiology unclear. -5.5 on day of admission, recommend rechecking later this week -Patient without major renal dysfunction Endometrial Carcinoma with Metastases, pancytopenia -Hx of endometrial cancer diagnosed in 2014 (s/p total hysterectomy with bilateral salpingo-oophorectomy, chemotherapy and brachytherapy) -pt follow with Dr. Hinton and receiving chemotherapy through port every -continue Vit D, B administration -Heme-onc consulted believe pain related to neuropathy from paclitaxel -- added neurontin 200 mg 3 times daily here, seems to be tolerating this well -Continue hydrocodone. Deconditioning -Per nursing patient is supremely deconditioned and a two person max assist to get to toilet and she is very unsteady even just standing/sitting -Patient currently walks at home only occasionally using cane and drives herself Awaiting placement for inpatient rehab Asthma/JACQUELYN -Intolerant of CPAP. -Continue home albuterol as needed, DuoNeb as needed, montelukast, cetirizine. CAD -No acute issues, continue home isosorbide mononitrate 60mg once daily, crestor 5mg, resume aspirin. HTN -continue home metoprolol succinate 25mg ER, Amlodipine 2.5 mg. To avoid hypotension given cerebral deficits as above. DNR/DNI Pending Studies at Discharge: No Stand-Alone Forms: [facility] Skilled Items Patient informed of condition?: Yes DNR: Yes Discharge Level of Care: Skilled Communicable Disease: No Discharge Prognosis: Improving Lines: None Urinary Catheter: No Medications and DC Order Prescriptions: New Eliquis 5 mg Tablet 5 mg PO BID 30 Days Qty: 60 RF: 0 atorvastatin 40 mg Tablet 40 mg PO QAM 30 Days Qty: 30 RF: 0 gabapentin 100 mg Capsule 200 mg PO TID 30 Days Qty: 180 RF: 0 Continued montelukast 10 mg tablet 10 mg PO DAILY Qty: 90 RF: 1 cyanocobalamin (vitamin B-12) 500 mcg tablet,disintegrating 500 mcg PO 3XWK RF: 0 omeprazole 20 mg capsule,delayed release(DR/EC) 20 mg PO DAILY RF: 0 nitroglycerin 0.4 mg tablet, sublingual 0.4 mg SL DIRECTED PRN (Reason: Chest Pain) RF: 0 isosorbide mononitrate 60 mg tablet extended release 24 hr 60 mg PO DAILY RF: 0 ipratropium-albuterol 0.5 mg-3 mg(2.5 mg base)/3 mL solution for nebulization 3 ml inhalation DAILY PRN (Reason: Shortness Of Breath) Qty: 6 RF: 0 ergocalciferol (vitamin D2) 50,000 unit capsule 50,000 unit PO DAILY Qty: 4 RF: 0 albuterol sulfate 90 mcg/actuation HFA aerosol inhaler 2 inh inhalation .INHALE 2 PUFFS EVERY PRN (Reason: Shortness Of Breath) Qty: 3 RF: 0 metoprolol succinate 25 mg tablet extended release 24 hr 25 mg PO BID RF: 0 cetirizine [Zyrtec] 10 mg tablet 10 mg PO DAILY RF: 0 amlodipine 2.5 mg Tablet 2.5 mg PO DAILY RF: 0 aspirin [Aspir-81] 81 mg Tablet,Delayed Release (Dr/Ec) 81 mg PO DAILY RF: 0 Discontinued rosuvastatin [Crestor] 5 mg tablet 5 mg PO DAILY Qty: 30 RF: 0 Discharge Orders: Discharge Order (Routine); Ordered 04/01/19 Ordered By: Elliott Carrion Admission Data Admit Date/Time: 03/24/19 01:08 Attending Provider: Shahriar Narvaez Admit Provider: Chucky Alejandra Primary Care Provider: Sree Guzman Other Providers: [facility] ; Neri Branham ; Darci Hinton ; Reinier Lancaster ; Jhon Xie ; Sue Hein ; [facility], Other Interventions: Discharge Summary Assessment (RN) Last Done: 04/01/19 11:47 DC Date/Time DO NOT enter until pt leaves facility: 04/01/19 13:00 Supervising Physician Co-Signing Physician Notes I personally examined the patient and verified all mota points of history and exam, discussed case, and agree with decision making with Dr Carrion. No new complaints. Feels up to going to rehab. Vitals noted, in general she is awake and alert pleasant no distress. Left-sided weakness and a degree of neglect, but does appear better than it was described previously. Skin shows no rashes no pallor or icterus. Breathing unlabored no accessory muscle use good effort. Ischemic strokesupportive care, secondary risk reduction, PT/OT eval and treat - stable and appropriate for SNF level rehab. Dispositionstable for SNF rehab emphasis Resident Activity Tracking Resident Involvement: Resident Care Provided Care Provided: Adult Hospital Medicine
[2019-04-01] MEDS: HEPARIN 100 UNIT/ML 5ML FLUSH FLUSH PRN (12:15)
--- NOTE | 2019-04-01 18:10 | Billing Data ---
Date of Service April 01, 2019 Coding Level of Care Code D/C Day Management <30 mins
--- NOTE | 2019-04-03 10:06 | Coding Query ---
PRESENT ON ADMISSION QUERY To promote full compliance with coding requirements relating to pateint care, physician participation is requested in all cases of button maker uncertainty. Please assist us with the question(s) below: Please place an X within the parenthesis (x). The following diagnosis(es) listed in this patient's medical record require physician assistance to determine if they were present on admission (POA) or not. Please advise for each diagnosis whether it was present on admission, not present on admission, or if it was clinically undetermined. Please check below if Stroke was present on admission. Thank you ! Percy Andrews, [facility].(Spike Maker insert Diagnosis and where it was documented in the record) ( ) Present On Admission ( x) Not Present On Admission ( ) Clinically Undetermined *Definition of the present on admission (POA)-Present on admission is defined as present at the time the order for inpatient admission occurs. Conditions that develop during an outpatient encounter prior to a written order for inpatient admission (including emergency department, observation, or outpatient surgery) are considered present on admission. DESI
== END 2019-04-01 13:00 | DRG 602 ==
LOC: ED 21:17 → 2N 03-24 01:08 → SUATTDRO 03-24 01:08 → 2N 03-24 01:36 → 4W 03-25 16:06

== ENCOUNTER 2019-04-13 15:42 | Inpatient (IN) ==
--- NOTE | 2019-04-13 16:13 | Emergency Department Note ---
ED Provider Note INFORMANT: Patient, EMS report ED PROVIDER: Emerita Ku MD CHIEF COMPLAINT: SOB, Ill IMPRESSION: SOB Dehydration UTI Abnormal ECG MEDICAL DECISION MAKING: The patient presented to the emergency department because of illness with shortness of breath. She appeared to be dehydrated on physical examination. She was very sleepy. She denied any pain. She was hydrated with normal saline. Cultures, blood work, and urinalysis were performed. Chest x-ray revealed moderate pleural effusions but no obvious consolidation. The patient had a urinalysis performed and this was very concerning for infection. Patient was moderately anemic but had no significant leukocytosis. Her chemistry panel confirmed the dehydration. She was treated with Rocephin and consultation was made with internal medicine. The patient was admitted. Triage Nursing notes reviewed and agree them. Additional history obtained from EMS Prior medical records reviewed : history of malignant pleural effusion, Breast CA Vital Signs: reviewed and remarkable for mild tachycardia and requiring 4l NC Differential diagnosis: Reactive airway disease, pneumonia, pneumothorax, COPD, CHF, infections, cardiac ischemia, pulmonary embolism, musculoskeletal, gastrointestinal, as well as other pathologies. ER treatment provided: NSS Bolus 1 L and 125ml/hr IV Rocephin Diagnostics interpreted by me: ECG:Rate:93 Rhythm:NSR [place]:normal QRS:RBBB ST segements:no elevation or depression Other:anteroinferior TWI Cardiac Monitoring: The patient was placed on cardiac monitoring. It revealed a normal sinus rhythm at 89 bpm. There is no evidence of dysrhythmia. Laboratory studies:[See below] moderate dehydration noted. No significant leukocytosis. Moderate anemia. Imaging studies: Chest x-ray was performed revealed bilateral moderate pleural effusions. No pneumothorax. Infiltrate. Consultation(s): Consultation was made with [facility] service, Dr. Schumacher. Case was discussed. Patient was evaluated and admitted for further management. HPI: 79 y/o female patient arrives for evaluation of SOB and illness. She is a resident of [facility] with a known malignant effusion who reportedly was SOB, constipated and appeared generally ill today. Pt denies any complaints currently but is very sleepy. She does note feeling generally weak on further questioning. EMS placed an IV and start NSS at KVO. Pt denies LOC, headache, fevers, chills, diaphoresis, visual changes, neck pain, chest pain, nausea, vomiting, abdominal pain, back pain, melena, hematochezia, urinary symptoms, numbness, lymphadenopathy, rash, or other complaints. ROS: See above HPI for pertinent positives & negatives. A total of [10] systems reviewed and were otherwise negative. PAST MEDICAL HISTORY: Breast CA, Lung CA, pleural effusion, GERD, Anticoagulated SOCIAL HISTORY: Resident of [facility] PHYSICAL EXAMINATION: GENERAL: Sleeping, but easily arousable. Weak appearing, in no distress HENT: Normocephalic, atraumatic. Oropharynx with dry membranes. EYES: Normal conjunctiva. Sclera non-icteric. NECK: Inspection normal. Non-tender. Supple. No nuchal rigidity. FROM. No masses. RESPIRATORY: Clear to auscultation. No wheezes. No rales. Normal respiratory effort. CARDIAC: Borderline tachycardic rate. Normal rhythm. No murmurs. No rubs. Extremities warm and well perfused. Pulses equal. No JVD. GI: Soft, non-distended. No tenderness to palpation. No rebound or guarding. No masses. RECTAL: Deferred. MUSCULOSKELETAL: Atraumatic. Chest examination reveals no tenderness. The back is symmetrical on inspection without obvious abnormality. There is no CVA tenderness to palpation. No joint edema. LOWER EXTREMITIES: Calves are equal size bilaterally and non-tender. No edema. No discoloration. NEURO: Normal sensorium. No sensory or motor deficits noted. SKIN: Skin tenting. No rash or jaundice noted. ED COURSE: Procedures: [none] Blood pressure: [Elevated - Referred to hospitalist] GCS: 14 PDMP:[Not applicable] Impression & Plan SOB (shortness of breath), Bilateral pleural effusion, UTI (urinary tract infection) Admitted Past Med/Surg History Medical History (Updated 04/13/19 @ 23:58 by Thom Ku MD) Cancer (Acute) uterine, endometrial, abdominal cancer Carotid stenosis, right DVT (deep venous thrombosis) (Acute) High cholesterol (Acute) History of cataract (Acute) Hypertension (Acute) Malignant pleural effusion (Inactive) Pacemaker (Acute) Stroke Surgical History History of (Acute) x3 History of carpal tunnel surgery (Acute) right hand History of hip replacement (Acute) right History of hysterectomy for cancer (Acute) History of knee replacement (Acute) b/l knees History of tonsillectomy (Acute) History of uvulectomy (Acute) Social History Preferred Language: Icelandic Communication Ability: Effective Combat Systems Officer Required: No Beliefs That Will Affect Care: None marital status: Current Living Situation: Custodial Feels Safe at Home: Yes Smoking Status: Never smoker Second Hand Exposure: No ; Hx Alcohol Use: No Hx Substance Use: No Results & Data Vital Signs Vital Signs - 24 hr 04/13/19 15:45 04/13/19 15:47 04/13/19 15:50 Temperature Temperature Source Pulse Rate 93 H 92 H Pulse Rate from SpO2 Sensor 96 H 92 H Respiratory Rate 35 H 31 H Respiratory Effort / Characteristics Spontaneous Labored Short of Breath Respiratory Depth Shallow Respiratory Pattern Blood Pressure 137/74 Blood Pressure Mean 109 Pulse Oximetry 98 97 Oxygen Delivery Method Nasal Cannula Oxygen Flow Rate 3 Sepsis Recent Fever Within 48 Hours Sepsis Action Taken by Nursing Oxygen Flow Rate - Titration Pulse Oximetry Post Tiitration 04/13/19 15:55 04/13/19 15:56 04/13/19 16:00 Temperature 37.1 C Temperature Source Oral Pulse Rate 101 H 97 H Pulse Rate from SpO2 Sensor 97 H Respiratory Rate 24 29 H Respiratory Effort / Characteristics Spontaneous Labored Respiratory Depth Shallow Respiratory Pattern Regular Blood Pressure 137/74 Blood Pressure Mean 95 Pulse Oximetry 99 99 97 Oxygen Delivery Method Nasal Cannula Nasal Cannula Oxygen Flow Rate 4 4 Sepsis Recent Fever Within 48 Hours No Sepsis Action Taken by Nursing No Action Required Oxygen Flow Rate - Titration 3 Pulse Oximetry Post Tiitration 96 04/13/19 16:23 04/13/19 16:30 04/13/19 16:48 Temperature Temperature Source Pulse Rate 108 H 96 H 99 H Pulse Rate from SpO2 Sensor 96 H 98 H Respiratory Rate 22 25 H 26 H Respiratory Effort / Characteristics Respiratory Depth Respiratory Pattern Blood Pressure 153/63 H Blood Pressure Mean 86 Pulse Oximetry 97 96 96 Oxygen Delivery Method Nasal Cannula Oxygen Flow Rate 3 Sepsis Recent Fever Within 48 Hours Sepsis Action Taken by Nursing Oxygen Flow Rate - Titration Pulse Oximetry Post Tiitration 04/13/19 17:00 04/13/19 17:01 04/13/19 17:30 Temperature Temperature Source Pulse Rate 88 88 92 H Pulse Rate from SpO2 Sensor 89 83 92 H Respiratory Rate 34 H 35 H 25 H Respiratory Effort / Characteristics Respiratory Depth Respiratory Pattern Blood Pressure 137/72 Blood Pressure Mean 99 Pulse Oximetry 94 93 96 Oxygen Delivery Method Nasal Cannula Oxygen Flow Rate 3 Sepsis Recent Fever Within 48 Hours Sepsis Action Taken by Nursing Oxygen Flow Rate - Titration Pulse Oximetry Post Tiitration 04/13/19 17:31 04/13/19 18:00 04/13/19 18:30 Temperature Temperature Source Pulse Rate 93 H 101 H 90 Pulse Rate from SpO2 Sensor 93 H 100 H 91 H Respiratory Rate 29 H 19 25 H Respiratory Effort / Characteristics Respiratory Depth Respiratory Pattern Blood Pressure 160/77 H 153/77 H Blood Pressure Mean 100 127 Pulse Oximetry 96 96 96 Oxygen Delivery Method Nasal Cannula Nasal Cannula Oxygen Flow Rate 3 3 Sepsis Recent Fever Within 48 Hours Sepsis Action Taken by Nursing Oxygen Flow Rate - Titration Pulse Oximetry Post Tiitration 04/13/19 18:31 04/13/19 19:00 Temperature Temperature Source Pulse Rate 104 H 92 H Pulse Rate from SpO2 Sensor 102 H 90 Respiratory Rate 19 33 H Respiratory Effort / Characteristics Respiratory Depth Respiratory Pattern Blood Pressure 159/52 H 145/80 H Blood Pressure Mean 108 111 Pulse Oximetry 96 94 Oxygen Delivery Method Oxygen Flow Rate Sepsis Recent Fever Within 48 Hours Sepsis Action Taken by Nursing Oxygen Flow Rate - Titration Pulse Oximetry Post Tiitration Laboratory Data Result diagrams: 04/13/19 16:15 04/13/19 16:15 Lab Results 04/13/19 04/13/19 04/13/19 Range/Units 16:15 16:15 16:15 WBC 5.54 (4.8-10.8) K/uL RBC 3.20 L (4.2-5.4) M/uL Hgb 8.7 L (12.0-16.0) g/dL Hct 28.6 L (37-47) % MCV 89.4 (80-100) fL MCH 27.2 (25-34) pg MCHC 30.4 L (32-36) g/dL RDW Std Deviation 57.1 H (36.4-46.3) fL RDW Coeff of Hoa 17.4 H (11.5-14.5) % Plt Count 251 (130-400) K/uL MPV 10.3 (7.4-10.4) fL Immature Gran % (Auto) 0.4 % Neut % (Auto) 67.7 % Lymph % (Auto) 19.5 % [place] % (Auto) 9.7 % Eos % (Auto) 2.0 % Baso % (Auto) 0.7 % Immature Gran # (Auto) 0.02 (0.00-0.02) K/uL Neut # (Auto) 3.75 (1.4-6.5) K/uL Lymph # (Auto) 1.08 L (1.2-3.4) K/uL [place] # (Auto) 0.54 (0.11-0.59) K/uL Eos # (Auto) 0.11 (0-0.5) K/uL Baso # (Auto) 0.04 (0-0.2) K/uL Sodium (136-145) mmol/L Potassium (3.5-5.1) mmol/L Chloride (98-107) mmol/L Carbon Dioxide (21-32) mmol/L Anion Gap (3-11) BUN (7-18) mg/dl Creatinine (0.6-1.2) mg/dl Est Cr Clr Drug Dosing ml/min Est GFR ( Amer) Est GFR (Non-Af Amer) BUN/Creatinine Ratio (10-20) Glucose (70-99) mg/dl Lactate 1.1 (0.4-2.0) mmol/L Calcium (8.5-10.1) mg/dl Phosphorus (2.5-4.9) mg/dl Magnesium Cancelled Total Bilirubin (0.2-1) mg/dl AST (15-37) U/L ALT (12-78) U/L Alkaline Phosphatase (45-117) U/L Troponin I (0-0.045) ng/ml NT-Pro-B Natriuret Pep (0-1800) pg/ml Total Protein (6.4-8.2) gm/dl Albumin (3.4-5.0) gm/dl Globulin (2.5-4.0) gm/dl Albumin/Globulin Ratio (0.9-2) Procalcitonin (0-0.5) ng/ml TSH (0.300-4.500) uIu/ml Urine Color Urine Appearance (Clear) Urine pH (4.5-7.5) Ur Specific [place] (1.000-1.030) Urine Protein (Negative) Urine Glucose (UA) (Negative) Urine Ketones (Negative) Urine Blood (Negative) Urine Nitrite (Negative) Urine Bilirubin (Negative) Urine Urobilinogen (Negative) Ur Leukocyte Esterase (Negative) Urine WBC (Auto) (0-5) /hpf Urine RBC (Auto) (0-4) /hpf U Hyaline Cast (Auto) (0-5) /lpf U Epithel Cells (Auto) (0-5) /lpf Urine Bacteria (Auto) (Negative) Influenza Type A Ag (Neg) Influenza Type B Ag (Neg) 04/13/19 04/13/19 04/13/19 Range/Units 16:15 16:15 16:15 WBC (4.8-10.8) K/uL RBC (4.2-5.4) M/uL Hgb (12.0-16.0) g/dL Hct (37-47) % MCV (80-100) fL MCH (25-34) pg MCHC (32-36) g/dL RDW Std Deviation (36.4-46.3) fL RDW Coeff of Hoa (11.5-14.5) % Plt Count (130-400) K/uL MPV (7.4-10.4) fL Immature Gran % (Auto) % Neut % (Auto) % Lymph % (Auto) % [place] % (Auto) % Eos % (Auto) % Baso % (Auto) % Immature Gran # (Auto) (0.00-0.02) K/uL Neut # (Auto) (1.4-6.5) K/uL Lymph # (Auto) (1.2-3.4) K/uL [place] # (Auto) (0.11-0.59) K/uL Eos # (Auto) (0-0.5) K/uL Baso # (Auto) (0-0.2) K/uL Sodium 147 H (136-145) mmol/L Potassium 4.6 (3.5-5.1) mmol/L Chloride 110 H (98-107) mmol/L Carbon Dioxide 31 (21-32) mmol/L Anion Gap 6.0 (3-11) BUN 24 H (7-18) mg/dl Creatinine 0.81 (0.6-1.2) mg/dl Est Cr Clr Drug Dosing 45.6 ml/min Est GFR ( Amer) 78.9 Est GFR (Non-Af Amer) 68.1 BUN/Creatinine Ratio 29.3 H (10-20) Glucose 104 H (70-99) mg/dl Lactate (0.4-2.0) mmol/L Calcium 8.6 (8.5-10.1) mg/dl Phosphorus 3.7 Cancelled (2.5-4.9) mg/dl Magnesium 1.8 Total Bilirubin 0.2 (0.2-1) mg/dl AST 17 (15-37) U/L ALT 12 (12-78) U/L Alkaline Phosphatase 72 (45-117) U/L Troponin I < 0.015 (0-0.045) ng/ml NT-Pro-B Natriuret Pep 2863 H Cancelled (0-1800) pg/ml Total Protein 5.9 L (6.4-8.2) gm/dl Albumin 2.2 L (3.4-5.0) gm/dl Globulin 3.7 (2.5-4.0) gm/dl Albumin/Globulin Ratio 0.6 L (0.9-2) Procalcitonin 0.24 (0-0.5) ng/ml TSH 3.770 (0.300-4.500) uIu/ml Urine Color Urine Appearance (Clear) Urine pH (4.5-7.5) Ur Specific [place] (1.000-1.030) Urine Protein (Negative) Urine Glucose (UA) (Negative) Urine Ketones (Negative) Urine Blood (Negative) Urine Nitrite (Negative) Urine Bilirubin (Negative) Urine Urobilinogen (Negative) Ur Leukocyte Esterase (Negative) Urine WBC (Auto) (0-5) /hpf Urine RBC (Auto) (0-4) /hpf U Hyaline Cast (Auto) (0-5) /lpf U Epithel Cells (Auto) (0-5) /lpf Urine Bacteria (Auto) (Negative) Influenza Type A Ag (Neg) Influenza Type B Ag (Neg) 04/13/19 04/13/19 Range/Units 17:04 17:04 WBC (4.8-10.8) K/uL RBC (4.2-5.4) M/uL Hgb (12.0-16.0) g/dL Hct (37-47) % MCV (80-100) fL MCH (25-34) pg MCHC (32-36) g/dL RDW Std Deviation (36.4-46.3) fL RDW Coeff of [place] (11.5-14.5) % Plt Count (130-400) K/uL MPV (7.4-10.4) fL Immature Gran % (Auto) % Neut % (Auto) % Lymph % (Auto) % [place] % (Auto) % Eos % (Auto) % Baso % (Auto) % Immature Gran # (Auto) (0.00-0.02) K/uL Neut # (Auto) (1.4-6.5) K/uL Lymph # (Auto) (1.2-3.4) K/uL [place] # (Auto) (0.11-0.59) K/uL Eos # (Auto) (0-0.5) K/uL Baso # (Auto) (0-0.2) K/uL Sodium (136-145) mmol/L Potassium (3.5-5.1) mmol/L Chloride (98-107) mmol/L Carbon Dioxide (21-32) mmol/L Anion Gap (3-11) BUN (7-18) mg/dl Creatinine (0.6-1.2) mg/dl Est Cr Clr Drug Dosing ml/min Est GFR ( Amer) Est GFR (Non-Af Amer) BUN/Creatinine Ratio (10-20) Glucose (70-99) mg/dl Lactate (0.4-2.0) mmol/L Calcium (8.5-10.1) mg/dl Phosphorus (2.5-4.9) mg/dl Magnesium Total Bilirubin (0.2-1) mg/dl AST (15-37) U/L ALT (12-78) U/L Alkaline Phosphatase (45-117) U/L Troponin I (0-0.045) ng/ml NT-Pro-B Natriuret Pep (0-1800) pg/ml Total Protein (6.4-8.2) gm/dl Albumin (3.4-5.0) gm/dl Globulin (2.5-4.0) gm/dl Albumin/Globulin Ratio (0.9-2) Procalcitonin (0-0.5) ng/ml TSH (0.300-4.500) uIu/ml Urine Color Yellow Urine Appearance Clear (Clear) Urine pH 5.0 (4.5-7.5) Ur Specific [place] 1.020 (1.000-1.030) Urine Protein Negative (Negative) Urine Glucose (UA) Negative (Negative) Urine Ketones Negative (Negative) Urine Blood Negative (Negative) Urine Nitrite Positive A (Negative) Urine Bilirubin Negative (Negative) Urine Urobilinogen Negative (Negative) Ur Leukocyte Esterase 1+ H (Negative) Urine WBC (Auto) 1-5 (0-5) /hpf Urine RBC (Auto) 0-4 (0-4) /hpf U Hyaline Cast (Auto) 1-5 (0-5) /lpf U Epithel Cells (Auto) 20-30 H (0-5) /lpf Urine Bacteria (Auto) 4+ H (Negative) Influenza Type A Ag Neg for Influ A (Neg) Influenza Type B Ag Neg for Influ B (Neg) Administered Medications Apixaban (Eliquis) 5 mg PO BID ROSMERY Stop: 05/13/19 20:59 Last Admin: 04/13/19 21:44 Dose: 5 mg Documented by: [id number] Gabapentin (Neurontin) 200 mg PO TID ROSMERY Stop: 05/13/19 20:59 Last Admin: 04/13/19 21:43 Dose: 200 mg Documented by: [id number] Discontinued Medications Sodium Chloride (Nss 1000ml) 1,000 mls @ 999 mls/hr IV .Q1H1M ROSMERY Stop: 04/13/19 17:30 Last Infusion: 04/13/19 18:04 Dose: 0 mls/hr Documented by: [id number] Admin: 04/13/19 16:53 Dose: 999 mls/hr Documented by: [id number] Sodium Chloride (Nss 1000ml) 1,000 mls @ 125 mls/hr IV .Q8H ROSMERY Stop: 04/14/19 00:29 Last Infusion: 04/13/19 19:50 Dose: 0 mls/hr Documented by: [id number] Admin: 04/13/19 18:38 Dose: 125 mls/hr Documented by: [id number] Ceftriaxone Sodium (Rocephin) 2,000 mg in 70 mls @ 140 mls/hr IV NOW STA Stop: 04/13/19 18:17 Last Infusion: 04/13/19 18:34 Dose: 0 mls/hr Documented by: [id number] Admin: 04/13/19 18:01 Dose: 140 mls/hr Documented by: [id number] Albumin Human (Albumin 25%) 50 mls @ 50 mls/hr IV Q1H ROSMERY Stop: 04/13/19 22:34 Last Infusion: 04/13/19 23:14 Dose: 0 mls/hr Documented by: [id number] Admin: 04/13/19 22:06 Dose: 50 mls/hr Documented by: [id number] Infusion: 04/13/19 22:00 Dose: 50 mls/hr Documented by: [id number] Admin: 04/13/19 21:00 Dose: 50 mls/hr Documented by: [id number] Pneumococcal Polyvalent Vaccine (Pneumovax-23) 25 mcg IM .ONCE ONE Stop: 04/13/19 21:06 Last Admin: 04/13/19 21:49 Dose: 25 mcg Documented by: [id number] Discharge Plan Visit Data *Final* Discharge Date/Time: 04/13/19 19:48 Chief Complaint: Shortness of Breath/Dyspnea Stated Complaint: EDEMA TO LOWER ARMS, URINARY RETENTION, SOB ED Provider: Thom Ku Discharge Problem: SOB (shortness of breath), Bilateral pleural effusion, UTI (urinary tract infection) Patient Disposition: Admitted As Inpatient Discharge Instructions Interventions: ED Discharge Assessment Last Done: 04/13/19 19:48
[2019-04-13] MEDS ORDERED: SODIUM CHLORIDE 0.9% 1000ML 1,000 ML IV SCH ×2 (16:30)
[2019-04-13 16:33] LABS: Basophils # (auto) 0.04 K/uL (0-0.2); Basophils % (auto) 0.7 %; Eosinophils # (auto) 0.11 K/uL (0-0.5); Hematocrit (blood only) 28.6 % (37-47); Hemoglobin 8.7 g/dL (12.0-16.0); Immature Granulocytes # (auto) 0.02 K/uL (0.00-0.02); Immature Granulocytes % (auto) 0.4 %; Lymphocytes # (auto) 1.08 K/uL (1.2-3.4); Lymphocytes % (auto) 19.5 %; Mean Corpuscular Hemoglobin 27.2 pg (25-34); Mean Corpuscular Hgb Conc 30.4 g/dL (32-36); Mean Corpuscular Volume 89.4 fL (80-100); Mean Platelet Volume 10.3 fL (7.4-10.4); Monocytes # (auto) 0.54 K/uL (0.11-0.59); Monocytes % (auto) 9.7 %; Neutrophils # (auto) 3.75 K/uL (1.4-6.5); Neutrophils % (auto) 67.7 %; Platelet Count 251 K/uL (130-400); RDW Coefficient of Variation 17.4 % (11.5-14.5); RDW Standard Deviation 57.1 fL (36.4-46.3); White Blood Count 5.54 K/uL (4.8-10.8)
--- NOTE | 2019-04-13 16:41 | XRay Report ---
XR chest 1V portable HISTORY: weakness COMPARISON: Chest 03/23/2019. FINDINGS: There are low lung volumes. The heart remains mildly enlarged. Left-sided dual-chamber pace maker. Small to moderate bilateral pleural effusions and moderate pulmonary edema have progressed. Ri ght clavian central venous catheter terminates in the SVC. Bibasilar densities have also progressed a nd favor atelectasis from the pleural effusions. No pneumothorax. IMPRESSION: Interval progression of the moderate pulmonary edema and bilateral pleural effusions. ACT 112: Negative or not required by law. Electronically signed by: Roberto Hawkins M.D. 04/13/2019 4:40 PM
[2019-04-13 16:49] LABS: Alanine Aminotransferase 12 U/L (12-78); Albumin Level 2.2 gm/dl (3.4-5.0); Aspartate Aminotransferase 17 U/L (15-37); BUN Creatinine Ratio 29.3 (10-20); Blood Urea Nitrogen 24 mg/dl (7-18); Calcium 8.6 mg/dl (8.5-10.1); Carbon Dioxide 31 mmol/L (21-32); Chloride 110 mmol/L (98-107); Creatinine Clr Calc Pharmacy 45.6 ml/min; Est GFR (African American) 78.9; Est GFR (Non-African American) 68.1; Glucose 104 mg/dl (70-99); Magnesium 1.8 mg/dl (1.8-2.4); Potassium 4.6 mmol/L (3.5-5.1); Sodium 147 mmol/L (136-145)
[2019-04-13 17:00] LABS: Albumin Globulin Ratio 0.6 (0.9-2); Alkaline Phosphatase 72 U/L (45-117); Bilirubin,Total 0.2 mg/dl (0.2-1); Globulin 3.7 gm/dl (2.5-4.0); Total Protein 5.9 gm/dl (6.4-8.2); Troponin I < 0.015 ng/ml (0-0.045)
[2019-04-13 17:14] LABS: Appearance Urine Clear (Clear); Bacteria Urine Automated 4+ (Negative); Bilirubin Urine Negative (Negative); Blood Urine Negative (Negative); Color Urine Yellow; Epithelial Cell Urine Auto 20-30 /lpf (0-5); Glucose Urine UA Negative (Negative); Ketones Urine Negative (Negative); Leukocyte Esterase Urine 1+ (Negative); Nitrite Urine Positive (Negative); Protein Urine Negative (Negative); RBC Urine Automated 0-4 /hpf (0-4); Urobilinogen Urine Negative (Negative)
[2019-04-13] MEDS ORDERED: cefTRIAXone SODIUM 2,000 MG/70 ML BAG IV STA (17:48)
--- NOTE | 2019-04-13 19:18 | History & Physical Report ---
Date of Service April 13, 2019 Assessment & Plan (1) Weakness: Patient with diffuse weakness per report. Strength 5/5 on right side, left side with hemineglect from prior CVA, strength 1/5. Most likely secondary to deconditioning from prior hospital stay as well dehydration and UTI -Admit to medical floor -She received NSS x 1 L bolus in ER followed by maintenance x 1 liter at 125mL/hr. Will hold additional crystalloid fluids. -Albumin 25% x 2 bottles -Replete electrolytes as needed -Tx of acute UTI as below -PT/OT eval Present on Admission?: Yes (2) SOB (shortness of breath): Patient denies SOB. She is requiring supplemental O2 at this time. Turned off during my exam and saturation decreased to 86%. Most likely multifactorial. RAD + chronic malignant pleural effusions + pulmonary edema + deconditioning. Do not think patient has PNA. She is anticoagulated, doubt PE -Check BNP -Check Procalcitonin -Supplemental O2 as needed -Patient may need a dose of IV Lasix if respiratory status declines -Repeat CXR in AM -If worsening effusions or respiratory status will call Dr. Irby for thoracentesis. Patient has had this in the past as well as PleurX catheter in Jan 2019. Pleurodesis performed as well after removal of the PleurX Present on Admission?: Yes (3) UTI (urinary tract infection): Afebrile, HD stable. UTI could be contributing to weakness -Ceftriaxone 1gm IV daily Present on Admission?: Yes (4) Malignant pleural effusion: As above -Repeat CXR in am -consider consultation with Dr. Irby Present on Admission?: Yes (5) DVT of leg (deep venous thrombosis): Diagnosed at last admission -Continue Apixaban Present on Admission?: Yes (6) Obstructive sleep apnea: Patient intolerant of CPAP Present on Admission?: Yes (7) Reactive airway disease: No wheezing on exam -Continue DuoNebs, Albuterol PRN -Continue Zyrtec and Singulair at home doses Present on Admission?: Yes (8) Hypertension: Blood pressure stable -Continue Metoprolol -Continue Amlodipine -Continue Isosorbide mononitrate -Continue to monitor Present on Admission?: Yes (9) Endometrial cancer: Endometrial carcinoma with metastases -Hx of endometrial cancer diagnosed in 2014 (s/p total hysterectomy with bilateral salpingo-oophorectomy, chemotherapy and brachytherapy) -pt follow with Dr. 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 Present on Admission?: Yes (10) Stroke: Diagnosed at last admission -Continue ASA and Statin F/E/N - 2L given in ER. Albumin x 2 above. Monitor electrolytes and replete as needed. Heart healthy diet as tolerated. Continue home bowel regimen, Fleets enema, MOM, Dulcolax Ppx - Continue Apixaban. Continue home Omeprazole Code - Full Dispo - Admit to medical floor History of Present Illness Chief Complaint: SOB [facility] is an 79yo C female with multiple medical problems, most notably a history of HTN/DM/CAD s/p PCI, asthma, endometrial cancer s/p PAOLO-BSO and chemotherapy, Uterine/Ovarian cancer as well as active serous endometrial cancer and malignant pleural effusions. She was recently admitted to [facility] on 04/01/19 with complaints of bilateral leg weakness. During that hospital stay she was diagnosed with a subacute ischemic stroke of the posterior aspect of the right parietal lobe measuring 2cm. Found with critical stenosis of the right ICA. Vascular surgery evaluated her and she was deemed to be a poor candidate for surgical intervention. She was continued on Atorvastatin and Aspirin. Now with left hemiparesis and left sided neglect. Also had an echo performed which showed an EF of 65-70%, Dilated RV and elevated RVSP. She was diuresed with IV Lasix. She was treated with antibiotics for bilateral leg cellulitis. She was started on Eliquis for an acute DVT. She was ultimately discharged to [facility]. She presents today with worsening SOB, hypoxia, weakness and fatigue. Patient offers no complaints. Says she does not know why she is here. She denies KENT, visual changes, CP/palpitations, denies cough/SOB, denies abdominal pain/nausea/vomiting/diarrhea or constipation. ER Course: Ceftriaxone, NSS x 1 L then at 125mL/hr x 1 liter Allergies Allergy/AdvReac Type Severity Reaction Status Date / Time animal dander Allergy Intermediate SNEEZING, Verified 04/13/19 16:32 CONGESTION grass pollen Allergy Intermediate SNEEZING, Verified 04/13/19 16:32 CONGESTION Home Medications Home Medications Medication Instructions Recorded Confirmed Type cyanocobalamin (vitamin B-12) 500 500 mcg PO 3XWK tab 11/18/18 04/13/19 History mcg disintegrating tablet,sublingual ergocalciferol (vitamin D2) 1,250 50,000 unit PO WK #4 cap 11/18/18 04/13/19 History mcg (50,000 unit) capsule ipratropium 0.5 mg-albuterol 3 mg 3 ml INHALATION DAILY PRN #6 ml 11/18/18 04/13/19 History (2.5 mg base)/3 mL nebulization soln isosorbide mononitrate 60 mg 60 mg PO QAM tab 11/18/18 04/13/19 History tablet,extended release 24 hr metoprolol succinate 25 mg 25 mg PO BID17 tab 11/18/18 04/13/19 History tablet,extended release 24 hr nitroglycerin 0.4 mg sublingual 0.4 mg SL DIRECTED PRN tab 11/18/18 04/13/19 History tablet omeprazole 20 mg capsule,delayed 20 mg PO DAILYBB cap 11/18/18 04/13/19 History release cetirizine [Zyrtec] 10 mg PO QAM 02/14/19 04/13/19 History amlodipine 2.5 mg PO QAM 03/23/19 04/13/19 History aspirin [Aspir-81] 81 mg PO QAM 03/23/19 04/13/19 History gabapentin 200 mg PO TID 30 Days #180 cap 04/01/19 04/13/19 Rx acetaminophen 650 mg PO QID PRN 04/04/19 04/13/19 History albuterol sulfate [Ventolin HFA] 2 puff INHALATION QID PRN 04/04/19 04/13/19 History apixaban [Eliquis] 5 mg PO AMPM 04/04/19 04/13/19 History bisacodyl [Dulcolax (bisacodyl)] 10 mg NC DAILY PRN 04/04/19 04/13/19 History magnesium hydroxide [Milk of 30 ml PO DAILY 04/04/19 04/13/19 History Magnesia] sodium phosphates [Fleet Enema] 118 ml NC DAILY PRN 04/04/19 04/13/19 History montelukast 10 mg PO QAM 04/13/19 04/13/19 History Past Med/Surg History Medical History (Updated 04/13/19 @ 19:55 by Marisol Schumacher DO) Cancer (Acute) uterine, endometrial, abdominal cancer Carotid stenosis, right DVT (deep venous thrombosis) (Acute) High cholesterol (Acute) History of cataract (Acute) Hypertension (Acute) Malignant pleural effusion (Inactive) Pacemaker (Acute) Stroke Surgical History History of (Acute) x3 History of carpal tunnel surgery (Acute) right hand History of hip replacement (Acute) right History of hysterectomy for cancer (Acute) History of knee replacement (Acute) b/l knees History of tonsillectomy (Acute) History of uvulectomy (Acute) Social History Preferred Language: Colombian Communication Ability: Effective Water Sponger Required: No Beliefs That Will Affect Care: None marital status: Current Living Situation: Spouse Feels Safe at Home: Yes Smoking Status: Never smoker Second Hand Exposure: No ; Hx Alcohol Use: No Hx Substance Use: No Review of Systems Review of Systems: All systems reviewed & are unremarkable except as noted in HPI & below and Other Patient is poor historian Physical Exam Physical Exam: General: frail, elderly patient resting comfortably, NAD, non- toxic in appearance, AA&O to person and place Skin: warm, dry, intact, no rashes or lesions HEENT: NC/AT, PERRL, EOMI, anicteric sclera, conjunctiva without injection, external ear normal to inspection and nontender, nares patent, dry mucus membranes, dentures in place, no oropharyngeal lesions, neck supple, trachea midline, no LAD, no thyromegaly, no JVD Heart: +S1/S2, regular, tachycardic, 3/6 DIAZ at 2nd right ICS, no rubs or gallops Lungs: equal air entry bilaterally, +crackles in mid lung aguilar, diminished in bases Abd: +BS, soft, NT/ND, no masses/organomegaly/ascites Ext: warm, 2+ pulses in UE/LE bilaterally, no clubbing/cyanosis or edema Neuro: patient AA&O x 2, speech intact, no facial droop, left sided neglect, strength on left 1/5, strength on right intact 5/5 Results & Data Vital Signs (Past 12 Hours) Vital Signs Temp Pulse Resp BP Pulse Ox 04/13/19 19:00 92 H 33 H 145/80 H 94 04/13/19 18:31 104 H 19 159/52 H 96 04/13/19 18:30 90 25 H 96 04/13/19 18:00 101 H 19 153/77 H 96 04/13/19 17:31 93 H 29 H 160/77 H 96 04/13/19 17:30 92 H 25 H 96 04/13/19 17:01 88 35 H 93 04/13/19 17:00 88 34 H 137/72 94 04/13/19 16:48 99 H 26 H 153/63 H 96 04/13/19 16:30 96 H 25 H 96 04/13/19 16:23 108 H 22 97 04/13/19 16:00 97 H 29 H 97 04/13/19 15:56 37.1 C 101 H 24 137/74 99 04/13/19 15:55 99 04/13/19 15:47 92 H 31 H 97 04/13/19 15:45 93 H 35 H 137/74 98 Laboratory Results Lab Results 04/13/19 04/13/19 04/13/19 Range/Units 16:15 16:15 16:15 WBC 5.54 (4.8-10.8) K/uL RBC 3.20 L (4.2-5.4) M/uL Hgb 8.7 L (12.0-16.0) g/dL Hct 28.6 L (37-47) % MCV 89.4 (80-100) fL MCH 27.2 (25-34) pg MCHC 30.4 L (32-36) g/dL RDW Std Deviation 57.1 H (36.4-46.3) fL RDW Coeff of Hoa 17.4 H (11.5-14.5) % Plt Count 251 (130-400) K/uL MPV 10.3 (7.4-10.4) fL Immature Gran % (Auto) 0.4 % Neut % (Auto) 67.7 % Lymph % (Auto) 19.5 % [place] % (Auto) 9.7 % Eos % (Auto) 2.0 % Baso % (Auto) 0.7 % Immature Gran # (Auto) 0.02 (0.00-0.02) K/uL Neut # (Auto) 3.75 (1.4-6.5) K/uL Lymph # (Auto) 1.08 L (1.2-3.4) K/uL [place] # (Auto) 0.54 (0.11-0.59) K/uL Eos # (Auto) 0.11 (0-0.5) K/uL Baso # (Auto) 0.04 (0-0.2) K/uL Sodium (136-145) mmol/L Potassium (3.5-5.1) mmol/L Chloride (98-107) mmol/L Carbon Dioxide (21-32) mmol/L Anion Gap (3-11) BUN (7-18) mg/dl Creatinine (0.6-1.2) mg/dl Est Cr Clr Drug Dosing ml/min Est GFR ( Amer) Est GFR (Non-Af Amer) BUN/Creatinine Ratio (10-20) Glucose (70-99) mg/dl Lactate 1.1 (0.4-2.0) mmol/L Calcium (8.5-10.1) mg/dl Magnesium Cancelled Total Bilirubin (0.2-1) mg/dl AST (15-37) U/L ALT (12-78) U/L Alkaline Phosphatase (45-117) U/L Troponin I (0-0.045) ng/ml Total Protein (6.4-8.2) gm/dl Albumin (3.4-5.0) gm/dl Globulin (2.5-4.0) gm/dl Albumin/Globulin Ratio (0.9-2) TSH (0.300-4.500) uIu/ml Urine Color Urine Appearance (Clear) Urine pH (4.5-7.5) Ur Specific [place] (1.000-1.030) Urine Protein (Negative) Urine Glucose (UA) (Negative) Urine Ketones (Negative) Urine Blood (Negative) Urine Nitrite (Negative) Urine Bilirubin (Negative) Urine Urobilinogen (Negative) Ur Leukocyte Esterase (Negative) Urine WBC (Auto) (0-5) /hpf Urine RBC (Auto) (0-4) /hpf U Hyaline Cast (Auto) (0-5) /lpf U Epithel Cells (Auto) (0-5) /lpf Urine Bacteria (Auto) (Negative) Influenza Type A Ag (Neg) Influenza Type B Ag (Neg) 04/13/19 04/13/19 04/13/19 Range/Units 16:15 17:04 17:04 WBC (4.8-10.8) K/uL RBC (4.2-5.4) M/uL Hgb (12.0-16.0) g/dL Hct (37-47) % MCV (80-100) fL MCH (25-34) pg MCHC (32-36) g/dL RDW Std Deviation (36.4-46.3) fL RDW Coeff of Hoa (11.5-14.5) % Plt Count (130-400) K/uL MPV (7.4-10.4) fL Immature Gran % (Auto) % Neut % (Auto) % Lymph % (Auto) % [place] % (Auto) % Eos % (Auto) % Baso % (Auto) % Immature Gran # (Auto) (0.00-0.02) K/uL Neut # (Auto) (1.4-6.5) K/uL Lymph # (Auto) (1.2-3.4) K/uL [place] # (Auto) (0.11-0.59) K/uL Eos # (Auto) (0-0.5) K/uL Baso # (Auto) (0-0.2) K/uL Sodium 147 H (136-145) mmol/L Potassium 4.6 (3.5-5.1) mmol/L Chloride 110 H (98-107) mmol/L Carbon Dioxide 31 (21-32) mmol/L Anion Gap 6.0 (3-11) BUN 24 H (7-18) mg/dl Creatinine 0.81 (0.6-1.2) mg/dl Est Cr Clr Drug Dosing 45.6 ml/min Est GFR ( Amer) 78.9 Est GFR (Non-Af Amer) 68.1 BUN/Creatinine Ratio 29.3 H (10-20) Glucose 104 H (70-99) mg/dl Lactate (0.4-2.0) mmol/L Calcium 8.6 (8.5-10.1) mg/dl Magnesium 1.8 Total Bilirubin 0.2 (0.2-1) mg/dl AST 17 (15-37) U/L ALT 12 (12-78) U/L Alkaline Phosphatase 72 (45-117) U/L Troponin I < 0.015 (0-0.045) ng/ml Total Protein 5.9 L (6.4-8.2) gm/dl Albumin 2.2 L (3.4-5.0) gm/dl Globulin 3.7 (2.5-4.0) gm/dl Albumin/Globulin Ratio 0.6 L (0.9-2) TSH 3.770 (0.300-4.500) uIu/ml Urine Color Yellow Urine Appearance Clear (Clear) Urine pH 5.0 (4.5-7.5) Ur Specific [place] 1.020 (1.000-1.030) Urine Protein Negative (Negative) Urine Glucose (UA) Negative (Negative) Urine Ketones Negative (Negative) Urine Blood Negative (Negative) Urine Nitrite Positive A (Negative) Urine Bilirubin Negative (Negative) Urine Urobilinogen Negative (Negative) Ur Leukocyte Esterase 1+ H (Negative) Urine WBC (Auto) 1-5 (0-5) /hpf Urine RBC (Auto) 0-4 (0-4) /hpf U Hyaline Cast (Auto) 1-5 (0-5) /lpf U Epithel Cells (Auto) 20-30 H (0-5) /lpf Urine Bacteria (Auto) 4+ H (Negative) Influenza Type A Ag Neg for Influ A (Neg) Influenza Type B Ag Neg for Influ B (Neg) Diagnostic Findings XR chest 1V portable HISTORY: weakness COMPARISON: Chest 03/23/2019. FINDINGS: There are low lung volumes. The heart remains mildly enlarged. Left- sided dual-chamber pacemaker. Small to moderate bilateral pleural effusions and moderate pulmonary edema have progressed. Right clavian central venous catheter terminates in the SVC. Bibasilar densities have also progressed and favor atelectasis from the pleural effusions. No pneumothorax. IMPRESSION: Interval progression of the moderate pulmonary edema and bilateral pleural effusions. ACT 112: Negative or not required by law. Electronically signed by: Roberto Hawkins M.D. 04/13/2019 4:40 PM Dictated: 04/13/19 1639 Transcribed: 04/13/19 1639 Code Status & VTE Plan Code Status FULL VTE Prophylaxis Plan VTE Prophylaxis will be ordered: Yes PG Care Time/CCT Total # of Minutes Spent Total Time Spent with Patient: Total time spent is greater than 50% in coordination of care (as documented) at patient's floor/unit and/or counseling patient: Coding Level of Care Code 49506 Initial Inpt Care Lvl 3 Diagnoses Weakness R53.1 SOB (shortness of breath) R06.02 UTI (urinary tract infection) N30.00 Urinary tract infection type: acute cystitis Hematuria presence: without hematuria Malignant pleural effusion J91.0 DVT of leg (deep venous thrombosis) I82.409 Affected thrombotic vein of extremity: unspecified vein of extremity Chronicity: unspecified Laterality: unspecified laterality Obstructive sleep apnea G47.33 Reactive airway disease J45.30 Asthma severity: mild Asthma persistence: persistent Asthma complication type: uncomplicated Hypertension I10 Hypertension type: essential hypertension Endometrial cancer C54.1 Stroke I63.9 CVA mechanism: unspecified (1) UTI (urinary tract infection) Urinary tract infection type: acute cystitis Hematuria presence: without hematuria Qualified Code(s): N30.00 - Acute cystitis without hematuria (2) DVT of leg (deep venous thrombosis) Affected thrombotic vein of extremity: unspecified vein of extremity Chronicity: unspecified Laterality: unspecified laterality Qualified Code(s): I82.409 - Acute embolism and thrombosis of unspecified deep veins of unspecified lower extremity (3) Reactive airway disease Asthma severity: mild Asthma persistence: persistent Asthma complication type: uncomplicated Qualified Code(s): J45.30 - Mild persistent asthma, uncomplicated (4) Hypertension Hypertension type: essential hypertension Qualified Code(s): I10 - Essential (primary) hypertension (5) Stroke CVA mechanism: unspecified Qualified Code(s): I63.9 - Cerebral infarction, unspecified
[2019-04-13] MEDS ORDERED: SOD PHOSPHATE/SOD BIPHOSPHATE ENEMA 132 ML BTL PR PRN (20:28)
[2019-04-13] MEDS ORDERED: DOCUSATE SODIUM 100 MG CAP PO PRN (20:28)
[2019-04-13] MEDS ORDERED: bisacodyL 10 MG SUPP PR PRN (20:28)
[2019-04-13] MEDS ORDERED: ONDANSETRON INJ 2 MG/ML 2 ML VIAL IV PRN (20:28)
[2019-04-13] MEDS ORDERED: ACETAMINOPHEN 325 MG TAB PO PRN (20:28)
[2019-04-13] MEDS ORDERED: ALBUT/IPRATROP 3MG/0.5MG NEB 3 ML VIAL INH PRN (20:28)
[2019-04-13] MEDS ORDERED: ALBUTEROL HFA 8 GM INHALER INH PRN (20:28)
[2019-04-13] MEDS: ALBUMIN 25% 50 ML IV SCH ×2 (21:00→22:06)
[2019-04-13 21:01] LABS: NT Pro B Type Natriuretic Pept 2863 pg/ml (0-1800); Phosphorus 3.7 mg/dl (2.5-4.9)
[2019-04-13] MEDS ORDERED: PNEUMOCOCCAL ADMINISTRATION CHARGE ONE (21:05)
[2019-04-13] MEDS ORDERED: PNEUMOCOCCAL POLYSACCHARIDES 25 MCG/0.5 ML VIAL/SYR IM ONE (21:05)
[2019-04-13] MEDS: GABAPENTIN 100 MG CAP PO SCH (21:43)
[2019-04-13] MEDS: APIXABAN 5 MG TABLET PO SCH (21:44)
[2019-04-14] MEDS: PANTOprazole 40 MG TAB PO SCH (06:00)
[2019-04-14 07:44] LABS: Basophils # (auto) 0.02 K/uL (0-0.2); Basophils % (auto) 0.3 %; Eosinophils # (auto) 0.13 K/uL (0-0.5); Eosinophils % (auto) 2.2 %; Hematocrit (blood only) 29.7 % (37-47); Hemoglobin 8.7 g/dL (12.0-16.0); Immature Granulocytes # (auto) 0.02 K/uL (0.00-0.02); Immature Granulocytes % (auto) 0.3 %; Lymphocytes # (auto) 0.77 K/uL (1.2-3.4); Mean Corpuscular Hemoglobin 26.4 pg (25-34); Mean Corpuscular Hgb Conc 29.3 g/dL (32-36); Mean Corpuscular Volume 90.3 fL (80-100); Mean Platelet Volume 10.2 fL (7.4-10.4); Monocytes # (auto) 0.53 K/uL (0.11-0.59); Monocytes % (auto) 8.9 %; Neutrophils # (auto) 4.46 K/uL (1.4-6.5); Neutrophils % (auto) 75.3 %; Platelet Count 250 K/uL (130-400); RDW Coefficient of Variation 17.4 % (11.5-14.5); RDW Standard Deviation 56.8 fL (36.4-46.3); Red Blood Count 3.29 M/uL (4.2-5.4); White Blood Count 5.93 K/uL (4.8-10.8)
[2019-04-14 08:14] LABS: Calcium 8.8 mg/dl (8.5-10.1); Creatinine Clr Calc Pharmacy 50.7 ml/min; Est GFR (African American) 92.6; Est GFR (Non-African American) 79.9; Potassium 4.2 mmol/L (3.5-5.1)
--- NOTE | 2019-04-14 08:14 | XRay Report ---
TWO VIEW CHEST CLINICAL HISTORY: Dyspnea. Hypoxia. FINDINGS: AP and lateral chest radiographs are compared to study dated 04/13/2019. The AP views degrade d by patient rotation. A right subclavian central venous infusion port is unchanged in position. A 2- lead cardiac pacemaker is again noted and partially obscures the left lower chest. The heart is enlar ged noting atherosclerotic calcification of the thoracic aorta. There is pulmonary vascular congestio n and interstitial edema. There are layering pleural effusions with bibasilar consolidation. There is no pneumothorax. The skeletal structures are osteopenic. The bony thorax appears intact. Degenerativ e change is noted in the shoulders and thoracic spine. IMPRESSION: 1. Cardiomegaly and cardiac pacemaker with evidence of congestive failure and interstitial edema. Thi s is similar in appearance to yesterday. 2. Layering pleural effusions with bibasilar consolidation. ACT 112: Negative or not required by law. Electronically signed by: Olu Garcia M.D. 04/14/2019 8:13 AM
[2019-04-14] MEDS: APIXABAN 5 MG TABLET PO SCH ×2 (08:32→20:32)
[2019-04-14] MEDS: MAGNESIUM HYDROXIDE SUSP 30 ML UDC PO SCH (08:32)
[2019-04-14] MEDS: AMLODIPINE BESYLATE 5 MG TAB PO SCH (08:32)
[2019-04-14] MEDS: ISOSORBIDE MONO EXTENDED REL 60 MG TABCR PO SCH (08:32)
[2019-04-14] MEDS: CETIRIZINE HCL 10 MG TABLET PO SCH (08:32)
[2019-04-14] MEDS: METOPROLOL SUCC 25MG EXT REL TAB PO SCH ×2 (08:32→17:24)
[2019-04-14] MEDS: ASPIRIN 81 MG ECTAB PO SCH (08:32)
[2019-04-14] MEDS: CYANOCOBALAMIN 500 MCG TABLET (VITAMIN B-12) PO SCH (08:32)
[2019-04-14] MEDS: MONTELUKAST SODIUM 10 MG TABLET PO SCH (08:32)
[2019-04-14] MEDS: GABAPENTIN 100 MG CAP PO SCH ×3 (08:32→20:32)
[2019-04-14] MEDS ORDERED: PIPERACILL/TAZOBAC CONSULT ACTIVE PRN (11:51)
--- NOTE | 2019-04-14 11:53 | Hospitalist Progress Note ---
Date of Service April 14, 2019 Assessment & Plan (1) HCAP (healthcare-associated pneumonia): CXR with bibasilar infiltrates, very weak and poor cough, likely issues with aspirating will treat possible aspiration pneumonia, possible gram negative pneumonia change Rocephin to Zosyn WBC normal, no fever, more alert today so some improvement will need 7 days of therapy (2) Weakness: Patient with diffuse weakness per report. Strength 4/5 on right side, left side with hemineglect from prior CVA, strength 1/5. Most likely secondary to deconditioning from prior hospital stay as well dehydration and pneumonia -She received NSS x 1 L bolus in ER followed by maintenance x 1 liter at 125mL/hr. Will hold additional crystalloid fluids. -Albumin 25% x 2 bottles -Replete electrolytes as needed, stable today -Tx of pneumonia -PT/OT eval (3) SOB (shortness of breath): Patient denies SOB. She is requiring supplemental O2 at this time. -Check Procalcitonin, only 0.24 -Supplemental O2 as needed -Patient may need a dose of IV Lasix if respiratory status declines, it is stable today, maybe a little better -plan to discuss with Dr. Irby tomorrow (4) UTI (urinary tract infection): Afebrile, HD stable. UTI could be contributing to weakness -Ceftriaxone changed to Zosyn urine culture with no growth, UTI ruled out (5) Malignant pleural effusion: As above -consider consultation with Dr. Irby (6) DVT of leg (deep venous thrombosis): Diagnosed at last admission -Continue Apixaban (7) Obstructive sleep apnea: Patient intolerant of CPAP (8) Reactive airway disease: No wheezing on exam -Continue DuoNebs, Albuterol PRN -Continue Zyrtec and Singulair at home doses (9) Hypertension: Blood pressure stable -Continue Metoprolol -Continue Amlodipine -Continue Isosorbide mononitrate -Continue to monitor (10) Endometrial cancer: Endometrial carcinoma with metastases -Hx of endometrial cancer diagnosed in 2014 (s/p total hysterectomy with bilateral salpingo-oophorectomy, chemotherapy and brachytherapy) -pt follow with Dr. 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 (11) Stroke: Diagnosed at last admission -Continue ASA and Statin F/E/N - 2L given in ER. Albumin x 2 above. Monitor electrolytes and replete as needed. Heart healthy diet as tolerated. Continue home bowel regimen, Fleets enema, MOM, Dulcolax Ppx - Continue Apixaban. Continue home Omeprazole Code - Full Dispo - Admit to medical floor Subjective patient very weak, laying in bed discussed recent events with patient and her family at the bedside she never really got rehab after discharge she had several follow up appt with oncology, a transfusion she started to feel more short of breath, cough over the weekend CXR shows bibasilar infiltrates, some effusions per patient's she appears a little better today after receiving Ceftriaxone reviewed labs, WBC normal at 5k, Hb is 8.7 Cr is 0.7, BUN 21, electrolytes stable Review of Systems Review of Systems: All systems reviewed & are unremarkable except as noted in HPI & below Constitutional: + fatigue and + weakness; no fever Respiratory: + cough, + chest congestion and + dyspnea; no sputum production Cardiovascular: no chest pain and no edema Gastrointestinal: no abdominal pain, no nausea, no vomiting, no constipation and no diarrhea/loose stools Physical Exam Constitutional: + ill appearing and + frail appearing; no acute distress Eyes: PERRL, conjunctivae normal, anicteric sclerae ENMT: external ear and nose normal, oropharynx normal Neck: trachea midline, no thyromegaly Respiratory: normal respiratory effort and + cough (weak, cannot mobilize sputum); no respiratory distress Auscultation: + diminished lung sounds (bases), + crackles and + rhonchi; no rales and no wheezes Cardiovascular: RRR, no murmur, no edema Gastrointestinal (Abdomen): normal bowel sounds, soft, nontender, no hepatosplenomegaly Musculoskeletal: Head/Neck/Chest: normocephalic and head atraumatic Extremities: extremities normal to inspection and + abnormal strength (left side 1/5 strength, right side 4/5); no cyanosis and no clubbing Skin: no rashes, warm and dry Neurologic: patellar DTR's 2+ bilat, sensation intact and PERRL, EOMI, accommodation nl, no face palsy, no dysarthria Psychiatric: A+Ox3, euthymic affect Lymphatic: no cervical or axillary lymphadenopathy Results & Data ([facility]) Vital Signs (Past 12 Hours) Vital Signs Temp Pulse Pulse Resp BP Pulse Ox 04/14/19 11:10 37 C 84 20 128/66 94 04/14/19 10:27 84 04/14/19 07:50 36.8 C 86 18 172/82 H 95 04/14/19 03:44 36.6 C 95 H 20 163/77 H 93 04/14/19 01:34 94 H Laboratory Results Laboratory Results - last 24 hr 04/13/19 04/13/19 04/13/19 16:15 16:15 16:15 WBC 5.54 RBC 3.20 L Hgb 8.7 L Hct 28.6 L MCV 89.4 MCH 27.2 MCHC 30.4 L RDW Std Deviation 57.1 H RDW Coeff of Hoa 17.4 H Plt Count 251 MPV 10.3 Immature Gran % (Auto) 0.4 Neut % (Auto) 67.7 Lymph % (Auto) 19.5 Hitchcock % (Auto) 9.7 Eos % (Auto) 2.0 Baso % (Auto) 0.7 Immature Gran # (Auto) 0.02 Neut # (Auto) 3.75 Lymph # (Auto) 1.08 L Hitchcock # (Auto) 0.54 Eos # (Auto) 0.11 Baso # (Auto) 0.04 Sodium Potassium Chloride Carbon Dioxide Anion Gap BUN Creatinine Est Cr Clr Drug Dosing Est GFR ( Amer) Est GFR (Non-Af Amer) BUN/Creatinine Ratio Glucose Lactate 1.1 Calcium Phosphorus Magnesium Cancelled Total Bilirubin AST ALT Alkaline Phosphatase Troponin I NT-Pro-B Natriuret Pep Total Protein Albumin Globulin Albumin/Globulin Ratio Procalcitonin TSH Urine Color Urine Appearance Urine pH Ur Specific Killen Urine Protein Urine Glucose (UA) Urine Ketones Urine Blood Urine Nitrite Urine Bilirubin Urine Urobilinogen Ur Leukocyte Esterase Urine WBC (Auto) Urine RBC (Auto) U Hyaline Cast (Auto) U Epithel Cells (Auto) Urine Bacteria (Auto) Nasal Screen MRSA (PCR) Influenza Type A Ag Influenza Type B Ag 04/13/19 04/13/19 04/13/19 16:15 16:15 16:15 WBC RBC Hgb Hct MCV MCH MCHC RDW Std Deviation RDW Coeff of Hoa Plt Count MPV Immature Gran % (Auto) Neut % (Auto) Lymph % (Auto) Hitchcock % (Auto) Eos % (Auto) Baso % (Auto) Immature Gran # (Auto) Neut # (Auto) Lymph # (Auto) Hitchcock # (Auto) Eos # (Auto) Baso # (Auto) Sodium 147 H Potassium 4.6 Chloride 110 H Carbon Dioxide 31 Anion Gap 6.0 BUN 24 H Creatinine 0.81 Est Cr Clr Drug Dosing 45.6 Est GFR ( Amer) 78.9 Est GFR (Non-Af Amer) 68.1 BUN/Creatinine Ratio 29.3 H Glucose 104 H Lactate Calcium 8.6 Phosphorus 3.7 Cancelled Magnesium 1.8 Total Bilirubin 0.2 AST 17 ALT 12 Alkaline Phosphatase 72 Troponin I < 0.015 NT-Pro-B Natriuret Pep 2863 H Cancelled Total Protein 5.9 L Albumin 2.2 L Globulin 3.7 Albumin/Globulin Ratio 0.6 L Procalcitonin 0.24 TSH 3.770 Urine Color Urine Appearance Urine pH Ur Specific Killen Urine Protein Urine Glucose (UA) Urine Ketones Urine Blood Urine Nitrite Urine Bilirubin Urine Urobilinogen Ur Leukocyte Esterase Urine WBC (Auto) Urine RBC (Auto) U Hyaline Cast (Auto) U Epithel Cells (Auto) Urine Bacteria (Auto) Nasal Screen MRSA (PCR) Influenza Type A Ag Influenza Type B Ag 04/13/19 04/13/19 04/13/19 17:04 17:04 22:00 WBC RBC Hgb Hct MCV MCH MCHC RDW Std Deviation RDW Coeff of Hoa Plt Count MPV Immature Gran % (Auto) Neut % (Auto) Lymph % (Auto) Hitchcock % (Auto) Eos % (Auto) Baso % (Auto) Immature Gran # (Auto) Neut # (Auto) Lymph # (Auto) Hitchcock # (Auto) Eos # (Auto) Baso # (Auto) Sodium Potassium Chloride Carbon Dioxide Anion Gap BUN Creatinine Est Cr Clr Drug Dosing Est GFR ( Amer) Est GFR (Non-Af Amer) BUN/Creatinine Ratio Glucose Lactate Calcium Phosphorus Magnesium Total Bilirubin AST ALT Alkaline Phosphatase Troponin I NT-Pro-B Natriuret Pep Total Protein Albumin Globulin Albumin/Globulin Ratio Procalcitonin TSH Urine Color Yellow Urine Appearance Clear Urine pH 5.0 Ur Specific Killen 1.020 Urine Protein Negative Urine Glucose (UA) Negative Urine Ketones Negative Urine Blood Negative Urine Nitrite Positive A Urine Bilirubin Negative Urine Urobilinogen Negative Ur Leukocyte Esterase 1+ H Urine WBC (Auto) 1-5 Urine RBC (Auto) 0-4 U Hyaline Cast (Auto) 1-5 U Epithel Cells (Auto) 20-30 H Urine Bacteria (Auto) 4+ H Nasal Screen MRSA (PCR) Negative Influenza Type A Ag Neg for Influ A Influenza Type B Ag Neg for Influ B 04/14/19 04/14/19 07:15 07:15 WBC 5.93 RBC 3.29 L Hgb 8.7 L Hct 29.7 L MCV 90.3 MCH 26.4 MCHC 29.3 L RDW Std Deviation 56.8 H RDW Coeff of Hoa 17.4 H Plt Count 250 MPV 10.2 Immature Gran % (Auto) 0.3 Neut % (Auto) 75.3 Lymph % (Auto) 13.0 Hitchcock % (Auto) 8.9 Eos % (Auto) 2.2 Baso % (Auto) 0.3 Immature Gran # (Auto) 0.02 Neut # (Auto) 4.46 Lymph # (Auto) 0.77 L Hitchcock # (Auto) 0.53 Eos # (Auto) 0.13 Baso # (Auto) 0.02 Sodium 145 Potassium 4.2 Chloride 111 H Carbon Dioxide 30 Anion Gap 4.0 BUN 21 H Creatinine 0.71 Est Cr Clr Drug Dosing 50.7 Est GFR ( Amer) 92.6 Est GFR (Non-Af Amer) 79.9 BUN/Creatinine Ratio 30.0 H Glucose 105 H Lactate Calcium 8.8 Phosphorus Magnesium Total Bilirubin AST ALT Alkaline Phosphatase Troponin I NT-Pro-B Natriuret Pep Total Protein Albumin Globulin Albumin/Globulin Ratio Procalcitonin TSH Urine Color Urine Appearance Urine pH Ur Specific Killen Urine Protein Urine Glucose (UA) Urine Ketones Urine Blood Urine Nitrite Urine Bilirubin Urine Urobilinogen Ur Leukocyte Esterase Urine WBC (Auto) Urine RBC (Auto) U Hyaline Cast (Auto) U Epithel Cells (Auto) Urine Bacteria (Auto) Nasal Screen MRSA (PCR) Influenza Type A Ag Influenza Type B Ag Medications Administered Current Inpatient Medications Acetaminophen (Tylenol) 650 mg PO QID PRN PRN Reason: fever and mild pain Stop: 05/13/19 20:27 Albuterol (Ventolin Hfa) 2 puffs INH QID PRN PRN Reason: Shortness Of Breath Stop: 05/13/19 20:27 Albuterol (Duoneb) 3 ml INH DAILY PRN PRN Reason: Shortness Of Breath Stop: 05/13/19 20:27 Amlodipine Besylate (Norvasc) 2.5 mg PO QAM [facility] Stop: 05/14/19 08:59 Last Admin: 04/14/19 08:32 Dose: 2.5 mg Documented by: Apixaban (Eliquis) 5 mg PO BID [facility] Stop: 05/13/19 20:59 Last Admin: 04/14/19 08:32 Dose: 5 mg Documented by: Aspirin (Ecotrin Ectab) 81 mg PO QAM [facility] Stop: 05/14/19 08:59 Last Admin: 04/14/19 08:32 Dose: 81 mg Documented by: Bisacodyl (Dulcolax) 10 mg [place] DAILY PRN PRN Reason: Constipation Stop: 05/13/19 20:27 Cetirizine HCl (Zyrtec) 10 mg PO [facility] Stop: 05/14/19 08:59 Last Admin: 04/14/19 08:32 Dose: 10 mg Documented by: Cyanocobalamin (Vitamin B-12) 500 mcg PO MoWeFr@0900 [facility] Stop: 05/14/19 08:59 Last Admin: 04/14/19 08:32 Dose: 500 mcg Documented by: Docusate Sodium (Colace) 100 mg PO BID PRN PRN Reason: Constipation Stop: 05/13/19 20:27 Gabapentin (Neurontin) 200 mg PO TID [facility] Stop: 05/13/19 20:59 Last Admin: 04/14/19 08:32 Dose: 200 mg Documented by: Piperacillin Sod/Tazobactam (Sod 3.375 gm/ Dextrose) 115 mls @ 28.75 mls/hr IV Q8H [facility] Stop: 04/21/19 11:59 Isosorbide Mononitrate (Imdur Extended Rel) 60 mg PO QAM [facility] Stop: 05/14/19 08:59 Last Admin: 04/14/19 08:32 Dose: 60 mg Documented by: Magnesium Hydroxide (Milk Of Magnesia) 30 ml PO DAILY [facility] Stop: 05/14/19 08:59 Last Admin: 04/14/19 08:32 Dose: 30 ml Documented by: Metoprolol Succinate (Toprol Xl) 25 mg PO BID17 [facility] Stop: 05/14/19 08:59 Last Admin: 04/14/19 08:32 Dose: 25 mg Documented by: Miscellaneous Information (Consult) 1 ea N/A UD PRN PRN Reason: Consult Stop: 05/14/19 11:50 Montelukast Sodium (Singulair) 10 mg PO QAM [facility] Stop: 05/14/19 08:59 Last Admin: 04/14/19 08:32 Dose: 10 mg Documented by: Ondansetron HCl (Zofran) 4 mg IV Q6H PRN PRN Reason: Nausea Stop: 05/13/19 20:27 Pantoprazole Sodium (Protonix) 40 mg PO DAILYBB [facility] Stop: 05/14/19 06:29 Last Admin: 04/14/19 06:00 Dose: 40 mg Documented by: Sodium Biphosphate/Sodium Phosphate (Fleet Enema) 118 ml KS DAILY PRN PRN Reason: Constipation Stop: 05/13/19 20:27 PG Care Time/CCT Total # of Minutes Spent Total Time Spent with Patient: Total time spent is greater than 50% in coordination of care (as documented) at patient's floor/unit and/or counseling patient: Coding Level of Care Code 42900 Subseq Hosp Care Lvl 3 Diagnoses HCAP (healthcare-associated pneumonia) J18.9 Weakness R53.1 SOB (shortness of breath) R06.02 UTI (urinary tract infection) N39.0 Malignant pleural effusion J91.0 DVT of leg (deep venous thrombosis) I82.409 Affected thrombotic vein of extremity: unspecified vein of extremity Chronicity: unspecified Laterality: unspecified laterality Obstructive sleep apnea G47.33 Reactive airway disease J45.30 Asthma complication type: uncomplicated Asthma persistence: persistent Asthma severity: mild Hypertension I10 Hypertension type: essential hypertension Endometrial cancer C54.1 Stroke I63.9 CVA mechanism: unspecified (1) Reactive airway disease Asthma complication type: uncomplicated Asthma persistence: persistent Asthma severity: mild Qualified Code(s): J45.30 - Mild persistent asthma, uncomplicated (2) DVT of leg (deep venous thrombosis) Affected thrombotic vein of extremity: unspecified vein of extremity Chron icity: unspecified Laterality: unspecified laterality Qualified Code(s): I82 .409 - Acute embolism and thrombosis of unspecified deep veins of unspecified lower extremity (3) Hypertension Hypertension type: essential hypertension Qualified Code(s): I10 - Essential (primary) hypertension (4) Stroke CVA mechanism: unspecified Qualified Code(s): I63.9 - Cerebral infarction, unspecified
--- NOTE | 2019-04-14 12:23 | Electrocardiogram Report ---
Test Reason : Blood Pressure : / mmHG Vent. Rate : 093 BPM Atrial Rate : 093 BPM P-R Int : 158 ms QRS Dur : 110 ms QT Int : 354 ms P-R-T Axes : 007 083 -12 degrees QTc Int : 440 ms Normal sinus rhythm Low voltage QRS Right bundle branch block T wave abnormality, consider inferior ischemia Abnormal ECG When compared with ECG of 23-MAR-2019 22:04, T wave inversion now evident in Inferior leads T wave inversion now evident in Anterior leads Confirmed by Bubba Garcia ([id number]) on 04/14/2019 12:23:13 PM Referred By: REFERRED SELF Confirmed By:Bubba Garcia
[2019-04-14] MEDS ORDERED: PIPERACILLIN/TAZOBACTAM 3.375 GM in DEXTROSE 5% 100 ML IV ONE (12:50)
[2019-04-14] MEDS: PIPERACILLIN/TAZOBACTAM 3.375 GM in DEXTROSE 5% 100 ML IV SCH (17:24)
[2019-04-14] MEDS ORDERED: cefTRIAXone SODIUM 1,000 MG in DEXTROSE 5% 50 ML IV SCH (18:00)
[2019-04-15] MEDS: PIPERACILLIN/TAZOBACTAM 3.375 GM in DEXTROSE 5% 100 ML IV SCH ×3 (01:12→17:29)
[2019-04-15] MEDS: PANTOprazole 40 MG TAB PO SCH (05:36)
[2019-04-15] MEDS: MAGNESIUM HYDROXIDE SUSP 30 ML UDC PO SCH (07:20)
[2019-04-15 08:09] LABS: Basophils # (auto) 0.04 K/uL (0-0.2); Basophils % (auto) 0.5 %; Eosinophils # (auto) 0.31 K/uL (0-0.5); Eosinophils % (auto) 4.2 %; Hematocrit (blood only) 29.9 % (37-47); Hemoglobin 8.8 g/dL (12.0-16.0); Immature Granulocytes # (auto) 0.02 K/uL (0.00-0.02); Immature Granulocytes % (auto) 0.3 %; Lymphocytes # (auto) 1.35 K/uL (1.2-3.4); Lymphocytes % (auto) 18.2 %; Mean Corpuscular Hemoglobin 26.6 pg (25-34); Mean Corpuscular Hgb Conc 29.4 g/dL (32-36); Mean Corpuscular Volume 90.3 fL (80-100); Mean Platelet Volume 9.8 fL (7.4-10.4); Monocytes # (auto) 0.57 K/uL (0.11-0.59); Monocytes % (auto) 7.7 %; Neutrophils # (auto) 5.11 K/uL (1.4-6.5); Neutrophils % (auto) 69.1 %; Platelet Count 270 K/uL (130-400); RDW Coefficient of Variation 16.9 % (11.5-14.5); RDW Standard Deviation 55.8 fL (36.4-46.3); Red Blood Count 3.31 M/uL (4.2-5.4)
[2019-04-15] MEDS ORDERED: FUROSEMIDE 40 MG in SYRINGE 0 ML IV ONE (08:10)
[2019-04-15] MEDS: APIXABAN 5 MG TABLET PO SCH (08:22)
[2019-04-15 08:40] LABS: BUN Creatinine Ratio 24.6 (10-20); Creatinine Clr Calc Pharmacy 36.1 ml/min; Est GFR (African American) 61.9; Est GFR (Non-African American) 53.4; Potassium 4.5 mmol/L (3.5-5.1)
[2019-04-15] MEDS: GABAPENTIN 100 MG CAP PO SCH ×3 (08:50→20:41)
[2019-04-15] MEDS: CETIRIZINE HCL 10 MG TABLET PO SCH (08:50)
[2019-04-15] MEDS: METOPROLOL SUCC 25MG EXT REL TAB PO SCH ×3 (08:50→17:31)
[2019-04-15] MEDS: AMLODIPINE BESYLATE 5 MG TAB PO SCH (08:50)
[2019-04-15] MEDS: ISOSORBIDE MONO EXTENDED REL 60 MG TABCR PO SCH (08:50)
[2019-04-15] MEDS: ASPIRIN 81 MG ECTAB PO SCH (08:50)
[2019-04-15] MEDS: MONTELUKAST SODIUM 10 MG TABLET PO SCH (08:50)
--- NOTE | 2019-04-15 14:29 | Hospitalist Progress Note ---
Date of Service April 15, 2019 Assessment & Plan (1) HCAP (healthcare-associated pneumonia): CXR with bibasilar infiltrates, very weak and poor cough, likely issues with aspirating will treat possible aspiration pneumonia, possible gram negative pneumonia continue Zosyn WBC normal, no fever, continues to be more alert, eating better procalcitonin was low yesterday will need 5-7 days of therapy (2) Weakness: Patient with diffuse weakness per report. Strength 4/5 on right side, left side with hemineglect from prior CVA, strength 1/5. Most likely secondary to deconditioning from prior hospital stay as well dehydration and pneumonia -She received NSS x 1 L bolus in ER followed by maintenance x 1 liter at 125mL/hr. Will hold additional crystalloid fluids. -Albumin 25% x 2 bottles -Replete electrolytes as needed, stable today -Tx of pneumonia -PT/OT eval (3) SOB (shortness of breath): Patient denies SOB. She is requiring supplemental O2 at this time. -Check Procalcitonin, only 0.24 -Supplemental O2 as needed -gave a dose of Lasix today, increased UO, will reassess tomorrow - will ask Dr. Irby to see tomorrow to evaluate for any need for thoracentesis, Eliquis on hold (4) Malignant pleural effusion: h/o effusions treated with PleurX eventually the PleurX was removed by Dr. Irby due to metastatic endometrial cancer bilateral effusions present on admission will use some Lasix today to attempt to mobilize fluids plan for evaluation by Dr. Irby tomorrow holding Eliquis for any possible thoracentesis (5) DVT of leg (deep venous thrombosis): Diagnosed at last admission -hold Eliquis for possible thoracentesis (6) Obstructive sleep apnea: Patient intolerant of CPAP (7) Reactive airway disease: No wheezing on exam -Continue DuoNebs, Albuterol PRN -Continue Zyrtec and Singulair at home doses (8) Hypertension: Blood pressure stable -Continue Metoprolol -Continue Amlodipine -Continue Isosorbide mononitrate (9) Endometrial cancer: Endometrial carcinoma with metastases -Hx of endometrial cancer diagnosed in 2014 (s/p total hysterectomy with bilateral salpingo-oophorectomy, chemotherapy and brachytherapy) -pt follow with Dr. 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 (10) Stroke: Diagnosed at last admission -Continue ASA and Statin Code - Full Subjective patient more alert today, less dyspnea, still with wet cough per , she ate a decent breakfast this morning which is an improvement no fever/chills, still very weak discussed with Dr. Irby today, will hold Eliquis and they will evaluate for thoracentesis tomorrow reviewed labs, WBC 7k, Hb 8.8, CR 0.99 and electrolytes stable no growth on cultures Review of Systems Review of Systems: All systems reviewed & are unremarkable except as noted in HPI & below Constitutional: + fatigue and + weakness; no fever and no chills Respiratory: + cough, + dyspnea and + sputum production; no wheezing Cardiovascular: no chest pain and no edema Gastrointestinal: no abdominal pain, no nausea, no vomiting, no constipation and no diarrhea/loose stools Physical Exam Constitutional: + frail appearing; no acute distress Eyes: PERRL, conjunctivae normal, anicteric sclerae ENMT: external ear and nose normal, oropharynx normal Neck: trachea midline, no thyromegaly Respiratory: normal respiratory effort and + cough (weak, cannot mobilize sputum); no respiratory distress Auscultation: + diminished lung sounds (bases), + crackles and + rhonchi; no rales and no wheezes Cardiovascular: RRR, no murmur, no edema Gastrointestinal (Abdomen): normal bowel sounds, soft, nontender, no hepatosplenomegaly Musculoskeletal: Head/Neck/Chest: normocephalic and head atraumatic Extremities: extremities normal to inspection and + abnormal strength (left side 1/5 strength, right side 4/5); no cyanosis and no clubbing Skin: no rashes, warm and dry Neurologic: patellar DTR's 2+ bilat, sensation intact and PERRL, EOMI, accommodation nl, no face palsy, no dysarthria Psychiatric: A+Ox3, euthymic affect Lymphatic: no cervical or axillary lymphadenopathy Results & Data ([facility]) Vital Signs (Past 12 Hours) Vital Signs Temp Pulse Pulse Resp BP Pulse Ox 04/15/19 11:34 79 20 112/63 95 02/04/20 07:46 83 04/15/19 07:41 37.6 C H 80 20 134/67 92 04/15/19 03:36 37.3 C 84 22 148/63 H 91 Laboratory Results Laboratory Results - last 24 hr 04/15/19 04/15/19 07:53 07:53 WBC 7.40 RBC 3.31 L Hgb 8.8 L Hct 29.9 L MCV 90.3 MCH 26.6 MCHC 29.4 L RDW Std Deviation 55.8 H RDW Coeff of Hoa 16.9 H Plt Count 270 MPV 9.8 Immature Gran % (Auto) 0.3 Neut % (Auto) 69.1 Lymph % (Auto) 18.2 Schleicher % (Auto) 7.7 Eos % (Auto) 4.2 Baso % (Auto) 0.5 Immature Gran # (Auto) 0.02 Neut # (Auto) 5.11 Lymph # (Auto) 1.35 Schleicher # (Auto) 0.57 Eos # (Auto) 0.31 Baso # (Auto) 0.04 Sodium 143 Potassium 4.5 Chloride 109 H Carbon Dioxide 31 Anion Gap 3.0 BUN 24 H Creatinine 0.99 Est Cr Clr Drug Dosing 36.1 Est GFR ( Amer) 61.9 Est GFR (Non-Af Amer) 53.4 BUN/Creatinine Ratio 24.6 H Glucose 113 H Calcium 9.0 Medications Administered Current Inpatient Medications Acetaminophen (Tylenol) 650 mg PO QID PRN PRN Reason: fever and mild pain Stop: 05/13/19 20:27 Albuterol (Ventolin Hfa) 2 puffs INH QID PRN PRN Reason: Shortness Of Breath Stop: 05/13/19 20:27 Albuterol (Duoneb) 3 ml INH DAILY PRN PRN Reason: Shortness Of Breath Stop: 05/13/19 20:27 Amlodipine Besylate (Norvasc) 2.5 mg PO QAM [facility] Stop: 05/14/19 08:59 Last Admin: 04/15/19 08:50 Dose: 2.5 mg Documented by: Apixaban (Eliquis) 5 mg PO BID [facility] Stop: 05/13/19 20:59 Last Admin: 04/15/19 08:22 Dose: Not Given Documented by: Aspirin ([facility]rin [facility]ab) [facility] Stop: 05/14/19 08:59 Last Admin: 04/15/19 08:50 Dose: 81 mg Documented by: Bisacodyl (Dulcolax) 10 mg [place] DAILY PRN PRN Reason: Constipation Stop: 05/13/19 20:27 Cetirizine HCl (Zyrtec) 10 mg PO QAM [facility] Stop: 05/14/19 08:59 Last Admin: 04/15/19 08:50 Dose: 10 mg Documented by: Cyanocobalamin (Vitamin B-12) 500 mcg PO MoWeFr@0900 [facility] Stop: 05/14/19 08:59 Last Admin: 04/14/19 08:32 Dose: 500 mcg Documented by: Docusate Sodium (Colace) 100 mg PO BID PRN PRN Reason: Constipation Stop: 05/13/19 20:27 Gabapentin (Neurontin) 200 mg PO TID [facility] Stop: 05/13/19 20:59 Last Admin: 04/15/19 12:41 Dose: 200 mg Documented by: Piperacillin Sod/Tazobactam (Sod 3.375 gm/ Dextrose) 115 mls @ 28.75 mls/hr IV Q8H [facility]; Protocol Stop: 04/21/19 17:59 Last Infusion: 04/15/19 13:31 Dose: Infused Documented by: Isosorbide Mononitrate (Imdur Extended Rel) [facility] Stop: 05/14/19 08:59 Last Admin: 04/15/19 08:50 Dose: 60 mg Documented by: Magnesium Hydroxide (Milk Of Magnesia) 30 ml PO DAILY [facility] Stop: 05/14/19 08:59 Last Admin: 04/15/19 07:20 Dose: Not Given Documented by: Metoprolol Succinate (Toprol Xl) 25 mg PO BID17 [facility] Stop: 05/14/19 08:59 Last Admin: 04/15/19 08:50 Dose: 25 mg Documented by: Miscellaneous Information (Consult) 1 ea N/A UD PRN PRN Reason: Consult Stop: 05/14/19 11:50 Montelukast Sodium (Singulair) 10 mg PO QAM [facility] Stop: 05/14/19 08:59 Last Admin: 04/15/19 08:50 Dose: 10 mg Documented by: Ondansetron HCl (Zofran) 4 mg IV Q6H PRN PRN Reason: Nausea Stop: 05/13/19 20:27 Pantoprazole Sodium (Protonix) 40 mg PO DAILYBB [facility] Stop: 05/14/19 06:29 Last Admin: 04/15/19 05:36 Dose: 40 mg Documented by: Sodium Biphosphate/Sodium Phosphate (Fleet Enema) 118 ml [place] DAILY PRN PRN Reason: Constipation Stop: 05/13/19 20:27 PG Care Time/CCT Total # of Minutes Spent Total Time Spent with Patient: Total time spent is greater than 50% in coordination of care (as documented) at patient's floor/unit and/or counseling patient: Coding Level of Care Code 69956 Subseq Hosp Care Lvl 3 Diagnoses HCAP (healthcare-associated pneumonia) J18.9 Weakness R53.1 SOB (shortness of breath) R06.02 Malignant pleural effusion J91.0 DVT of leg (deep venous thrombosis) I82.409 Affected thrombotic vein of extremity: unspecified vein of extremity Chronicity: unspecified Laterality: unspecified laterality Obstructive sleep apnea G47.33 Reactive airway disease J45.30 Asthma severity: mild Asthma persistence: persistent Asthma complication type: uncomplicated Hypertension I10 Hypertension type: essential hypertension Endometrial cancer C54.1 Stroke I63.9 CVA mechanism: unspecified (1) DVT of leg (deep venous thrombosis) Affected thrombotic vein of extremity: unspecified vein of extremity Chronicity: unspecified Laterality: unspecified laterality Qualified Code(s): I82.409 - Acute embolism and thrombosis of unspecified deep veins of unspecified lower extremity (2) Reactive airway disease Asthma severity: mild Asthma persistence: persistent Asthma complication type: uncomplicated Qualified Code(s): J45.30 - Mild persistent asthma, uncomplicated (3) Hypertension Hypertension type: essential hypertension Qualified Code(s): I10 - Essential (primary) hypertension (4) Stroke CVA mechanism: unspecified Qualified Code(s): I63.9 - Cerebral infarction, unspecified
--- NOTE | 2019-04-15 19:32 | Consultation Report ---
DATE OF CONSULTATION: 04/15/2019 SURGICAL CONSULTATION REASON FOR CONSULTATION: Pleural effusions. HISTORY OF PRESENT ILLNESS: This is an 79-year-old female known to our service. We initially saw the patient in January of 2019. On 02/05/2019, Dr. Irby inserted a right PleurX catheter secondary to a right pleural effusion. Cytology from this fluid revealed patient had a malignant pleural effusion and patient ultimately went chemical sclerosis with bleomycin on 02/14/19. The patient was seen in followup as an outpatient. Dr. Irby removed the patient's PleurX catheter on 02/17/19 and she has been doing well. She was most recently seen by our service on 03/02/19 at which time she was doing well without significant recurrence of her pleural effusion and p.r.n. follow up with Dr. Irby was recommended. Since that time in March of 2019, the patient has suffered a stroke where she has exhibited left-sided weakness. She presented to [facility] most recently on 04/13/2019 secondary to worsening fatigue, shortness of breath, weakness as well as hypoxia. She did not offer any specific complaints. However, her speech may have been limited due to her recent stroke. Since admission to the hospital, the patient has had blood cultures checked, thus far did not have any growth. The patient has had a CBC checked where she did not exhibit any leukocytosis. She is anemic with a hemoglobin and hematocrit of 8.8 and 29.9, which is stable from her previous values. Platelet count is within normal range. Procalcitonin level was not elevated. She has not been febrile and the patient's chemistry profile showed sodium, potassium and creatinine are all within the normal range. Serial chest x-rays have been undertaken and the patient appears to have bilateral pleural effusions. I visited with the patient at bedside, did attempt to have a conversation with patient, but this was limited, the patient did not really complain of any specific symptomatology but again her speech was somewhat limited and I am unsure if whether or not this was related to her recent stroke. She did appear comfortable at bedside and did not appear to be in any respiratory distress at the time of my exam. PAST MEDICAL HISTORY: Includes the followin. History of stroke. 2. History of endometrial cancer. 3. History of malignant pleural effusion. 4. History of carotid stenosis. 5. Hypercholesterolemia. 6. Hypertension. PAST SURGICAL HISTORY: Includes: 1. History of permanent pacemaker. 2. History of PleurX catheter as noted above. 3. History of x3. 4. Right hand carpal tunnel release. 5. History of right hip replacement. 6. History of hysterectomy. 7. History of bilateral knee replacements. 8. Tonsillectomy. 9. Uvulectomy. SOCIAL HISTORY: She is a lifetime nonsmoker. FAMILY HISTORY: There is no noted family history of premature coronary artery disease. REVIEW OF SYSTEMS: A full review of systems was attempted but however, this was limited due to patient's current clinical state. PHYSICAL EXAMINATION: VITAL SIGNS: Blood pressure is 124/63, pulse 86 regular, respirations are 20 and nonlabored. She is afebrile. Temperature 37.4, pulse ox 93% on 3 liters. GENERAL: The patient was alert. She did appear to be oriented to person. HEENT: Head appeared atraumatic, normocephalic. Eyes: Her sclerae were nonicteric. Ears: Her auditory acuity is grossly intact. Nose: There is no evidence of nasal trauma. Her mouth had dry mucous membranes. NECK: Supple, trachea was noted to be midline without any shift. CARDIOVASCULAR: Regular rate and rhythm. LUNGS: The patient's lungs revealed breath sounds were decreased at the bases bilaterally. She was not using accessory muscles to aid in respiration. ABDOMEN: Soft and nondistended. EXTREMITIES: Revealed no cyanosis or clubbing. NEUROLOGIC: Revealed that the patient could answer simple questions. She did exhibit some left-sided weakness. No facial droop was noted and again the patient was noted to have some decreased strength on the left side in the arm and leg, but was intact on the right hand side. DIAGNOSTIC DATA: As noted above. IMPRESSION: The patient does appear to have bilateral pleural effusions. I have reviewed her medications and she does take Eliquis. I have discussed with the primary service and as the patient is not in any respiratory distress at this time, we feel it is prudent to hold her Eliquis for 24 hours, and we will perform a bedside ultrasound and consider performing a thoracentesis at that time. We will continue to follow along while the patient is in the hospital. DESI
--- NOTE | 2019-04-15 20:54 | XRay Report ---
SINGLE VIEW CHEST CLINICAL HISTORY: Tachypnea. Pleural effusion. FINDINGS: An AP, portable, upright chest radiograph is compared to study dated 04/14/2019. Examination is significantly degraded by portable technique and patient rotation. A right subclavian central veno us infusion port is unchanged in position. A 2-lead cardiac pacemaker is again noted and partially ob scures the left chest. The heart is enlarged noting atherosclerotic calcification of the thoracic aor ta. There is pulmonary vascular congestion and interstitial edema. There are layering pleural effusio ns with bibasilar consolidation. There is no pneumothorax. The skeletal structures are osteopenic. Th e bony thorax appears intact. Degenerative change is noted in the shoulders and thoracic spine. IMPRESSION: 1. Cardiomegaly and cardiac pacemaker with evidence of congestive failure and interstitial edema. Thi s is similar in appearance to yesterday. 2. Layering pleural effusions with bibasilar consolidation. ACT 112: Negative or not required by law. Electronically signed by: Olu Garcia M.D. 04/15/2019 8:53 PM
[2019-04-15 21:06] LABS: Base Excess ABG 3.4 mEq/L (-9-1.8); HCO3 ABG 31 mmol/L (19-24); Oxygen Saturation ABG 94.1 % (90-95); PCO2 ABG 64 mmHg (35-46); PO2 ABG 81 mmHg (80-95)
[2019-04-15] MEDS ORDERED: FUROSEMIDE 40 MG in SYRINGE 0 ML IV STA (21:06)
[2019-04-15 21:08] LABS: Allen Test POS (Pos)
[2019-04-15 21:20] LABS: BUN Creatinine Ratio 23.3 (10-20); Calcium 8.6 mg/dl (8.5-10.1); Creatinine Clr Calc Pharmacy 32.8 ml/min; Est GFR (African American) 55.1; Est GFR (Non-African American) 47.6; Potassium 4.5 mmol/L (3.5-5.1)
[2019-04-16 00:23] LABS: Base Excess ABG 2.3 mEq/L (-9-1.8); HCO3 ABG 30 mmol/L (19-24); PCO2 ABG 66 mmHg (35-46); PO2 ABG 128 mmHg (80-95); pH ABG 7.27 (7.35-7.45)
[2019-04-16 00:26] LABS: Allen Test Pos (Pos)
[2019-04-16] MEDS: PIPERACILLIN/TAZOBACTAM 3.375 GM in DEXTROSE 5% 100 ML IV SCH ×3 (01:59→17:03)
[2019-04-16] MEDS: PANTOprazole 40 MG TAB PO SCH (06:03)
[2019-04-16 08:07] LABS: BUN Creatinine Ratio 22.4 (10-20); Calcium 9.2 mg/dl (8.5-10.1); Creatinine Clr Calc Pharmacy 30.6 ml/min; Est GFR (African American) 50.6; Est GFR (Non-African American) 43.7; Potassium 4.5 mmol/L (3.5-5.1)
[2019-04-16] MEDS: MAGNESIUM HYDROXIDE SUSP 30 ML UDC PO SCH (10:47)
[2019-04-16] MEDS: MONTELUKAST SODIUM 10 MG TABLET PO SCH (10:47)
[2019-04-16] MEDS: GABAPENTIN 100 MG CAP PO SCH ×3 (10:47→20:41)
[2019-04-16] MEDS: ASPIRIN 81 MG ECTAB PO SCH (10:47)
[2019-04-16] MEDS: CETIRIZINE HCL 10 MG TABLET PO SCH (10:48)
[2019-04-16] MEDS: CYANOCOBALAMIN 500 MCG TABLET (VITAMIN B-12) PO SCH (10:48)
[2019-04-16] MEDS: ISOSORBIDE MONO EXTENDED REL 60 MG TABCR PO SCH (12:45)
[2019-04-16] MEDS: AMLODIPINE BESYLATE 5 MG TAB PO SCH (12:45)
[2019-04-16] MEDS: METOPROLOL SUCC 25MG EXT REL TAB PO SCH ×2 (12:45→16:58)
--- NOTE | 2019-04-16 13:05 | XRay Report ---
SINGLE VIEW CHEST CLINICAL HISTORY: Status post thoracentesis. FINDINGS: An AP, portable, upright chest radiograph is compared to study dated 04/15/2019. The examinat ion is significantly degraded by portable technique and patient rotation. A right subclavian central venous infusion port is unchanged in position. A 2-lead cardiac pacemaker is again noted and partiall y obscures the left chest. The heart is enlarged noting atherosclerotic calcification of the thoracic aorta. There is pulmonary vascular congestion and interstitial edema. The right pleural effusion has decreased in size from previous. The left pleural effusion is unchanged and there is Increasing cons olidation throughout the left lung. There is no pneumothorax. The skeletal structures are osteopenic. The bony thorax appears intact. Degenerative change is noted in the shoulders and thoracic spine. IMPRESSION: 1. Cardiomegaly and cardiac pacemaker with evidence of congestive failure and interstitial edema. 2. The right pleural effusion has decreased in size from yesterday. No pneumothorax is identified pos t procedure. 3. Layering left pleural effusion with increasing consolidation throughout the left lung. ACT 112: Negative or not required by law. Electronically signed by: Olu Garcia M.D. 04/16/2019 1:04 PM
[2019-04-16 13:34] LABS: Total Protein Pleural Fluid 3.3 g/dl
[2019-04-16 13:53] LABS: Appearance Pleural Fluid HAZY; Basophils, Fluid 0 %; Color Pleural Fluid AMBER; Eosinophils, Fluid 0 %; Lymphocytes, Fluid 77 %; Mono,Macrophage,Mesothelial 23 %; Neutrophils, Fluid 0 %; RBC Pleural Fluid (A) 7000 /uL; Source Pleural Fluid RIGHT LUNG; WBC Pleural Fluid (A) 264 /uL
--- NOTE | 2019-04-16 13:56 | Operative Report (OR) ---
DATE OF OPERATION: 04/16/2019 PREOPERATIVE DIAGNOSES: 1. Bilateral pleural effusions. 2. Lethargy. 3. Metastatic endometrial carcinoma. POSTOPERATIVE DIAGNOSES: 1. Bilateral pleural effusions. 2. Lethargy. 3. Metastatic endometrial carcinoma. PROCEDURE: Right thoracentesis under ultrasound guidance at bedside. SURGEON: Favio Irby MD. WAX PATTERN REPAIRER: PRECIOUS Salmon. ANESTHESIA: Local. SPECIFICS OF PROCEDURE: The patient in a recombinant position with the head of the bed about 30 degrees elevated. The patient was rolled into the semi left lateral decubitus position and her right chest was evaluated. We could see there was an area for fluid with a window into the pleural cavity. The patient was prepped and draped in usual sterile fashion. After appropriate timeout had been called, a 25-gauge needle, 1% Xylocaine was used to anesthetize the skin and subcutaneous tissues. A large bore needle was then used to enter the pleural cavity where free flowing fluid back. Guidewire was inserted and the needle removed. Triple lumen catheter was slid in and the guidewire removed. 850 mL of a yellow serous fluid was drained. There was no bleeding. We got very little at the end and the catheter was removed. An antimicrobial dressing placed. She tolerated it quite well. A chest x-ray is pending at this time. I attest to the content of the Intraoperative Record and any orders documented therein. Any exception s are noted below.
--- NOTE | 2019-04-16 15:29 | CT Scan Report ---
CT head/brain wo con CLINICAL HISTORY: 79 years-old Female presenting with Altered mental status, recent CVA. TECHNIQUE: Multidetector CT imaging of the head was performed without the use of intravenous contrast . IV contrast: None. One or more dose lowering techniques were used consistent with the principles of ALARA (as low as reasonably achievable), including automatic exposure control, mA or kV adjustment t o individual patient size, and/or use of iterative reconstruction. COMPARISON: 03/26/2019. CT DOSE (mGy.cm): The estimated cumulative dose is 614.27 mGy.cm. FINDINGS: Travel Accommodations Rater topogram: Unremarkable. Ventricles and sulci normal in size. No hemorrhage. Abnormal hypoattenuation within the right occipit al lobe, which has expanded since the prior exam. This appears to involve the overlying hanks matter. Old lacunar infarct in the right thalamus. Limited old infarct in the left cerebellar hemisphere. The cortical infarct in the left frontoparietal region near the vertex has expanded since the prior exam . This also appears to involve the overlying hanks matter. Regional mild mass effect at the right fron toparietal vertex and right occipital lobe. No midline shift. No extra-axial fluid collection. Polypo id thickening in the left maxillary sinus. Calvarium intact. IMPRESSION: 1. Findings concerning for expanding subacute infarcts in the right frontoparietal region near the v ertex and right occipital lobe. Underlying lesions are considered less likely. Contrast-enhanced brai n MRI is recommended for further evaluation. 2. Old limited infarcts in the left cerebellar hemisphere and right thalamus. The report will be called/faxed according to standard departmental protocol for a critical finding. ACT 112: Negative or not required by law. Electronically signed by: Abdifatah Goldman M.D. 04/16/2019 3:27 PM
--- NOTE | 2019-04-16 16:05 | Hospitalist Progress Note ---
Date of Service April 16, 2019 Assessment & Plan (1) Stroke: Diagnosed at last admission, right frontoparietal and occipital at that time MRI could not be done because pacemaker incompatible patient also found to have critical right ICA stenosis, deemed to not be surgical candidate by vascular surgery today with worsening lethargy, confusion repeat CT head shows expanding area of stroke in right frontoparietal and occipital lobe her prognosis is grave, condition deteriorating discussed with family that she will only continue to have further strokes, will never recover also, given her terrible performance status and metastatic endometrial cancer, it is time to make her palliative family agrees code status is DNR/DNI palliative care consulted to see patient tomorrow (2) HCAP (healthcare-associated pneumonia): CXR with bibasilar infiltrates, very weak and poor cough, likely issues with aspirating will treat possible aspiration pneumonia, possible gram negative pneumonia/possible MRSA pneumonia continue Zosyn WBC normal, no fever, decline in mental status related to expanding stroke procalcitonin was low continue Zosyn for time being, only complete 5 days total (3) Weakness: Patient with diffuse weakness per report. Strength 4/5 on right side, left side with hemineglect from prior CVA, strength 1/5. Most likely secondary to deconditioning from prior hospital stay as well dehydration and pneumonia -She received NSS x 1 L bolus in ER followed by maintenance x 1 liter at 125mL/hr. -Albumin 25% x 2 bottles -Replete electrolytes as needed, stable today -Tx of pneumonia -PT/OT eval will not recover, area of stroke is expanding change to palliative course (4) SOB (shortness of breath): Patient denies SOB. She is requiring supplemental O2 at this time. -Check Procalcitonin, only 0.24 -Supplemental O2 as needed keep on BIPAP for now, not requiring a lot of supplemental oxygen (5) Malignant pleural effusion: h/o effusions treated with PleurX eventually the PleurX was removed by Dr. Irby due to metastatic endometrial cancer bilateral effusions present on admission Dr. Irby able to drain 850cc on the right side on 04/16 no further tap planned with palliative approach (6) DVT of leg (deep venous thrombosis): Diagnosed at last admission -hold Eliquis for thoracentesis likely continue to hold since she is not safe to take PO (7) Obstructive sleep apnea: on bipap for now (8) Reactive airway disease: No wheezing on exam -Continue DuoNebs, Albuterol PRN -Continue Zyrtec and Singulair at home doses (9) Hypertension: Blood pressure stable -Continue Metoprolol -Continue Amlodipine -Continue Isosorbide mononitrate (10) Endometrial cancer: Endometrial carcinoma with metastases -Hx of endometrial cancer diagnosed in 2014 (s/p total hysterectomy with bilateral salpingo-oophorectomy, chemotherapy and brachytherapy) -pt follow with Dr. Hinton and receiving chemotherapy through port every treatment on hold for past 3 weeks due to deconditioning and stroke will reach out to Dr. Hinton to let him know we are making her palliative Subjective patient deteriorated over night, more lethargic, less responsive ABG showed some CO 2 retention with level at 66, pH 7.27 placed on BIPAP 14/6 with FiO2 40%, never truly hypoxic patient would open eyes to sternal rub, speaking loudly she responded appropriately to questions but was difficult to keep awake repeated ABG around 1200, showed that pH was up to 7.34, CO2 59 so she likely has chronic retention discussed with patient's son and at the bedside, son reported she was having unresponsive episodes at [facility] reviewed prior records, last admission she had stroke, right occipital and parietal was found to have critical right ICA stenosis, evaluated by vascular surgery, not a surgical candidate due to change in mental status, ordered stat CT head CT head shows expanding subacute infarcts in the right frontoparietal and right occipital lobes called family to immediately discuss findings discussed with son that given her metastatic disease, recurrent effusions, poor nutritional status, blood clots and now worsening stroke, we should make the patient palliative he agreed but asked me to call his father at 1630 at home called patient's Valente at 1630, discussed grave condition, deteriorating he agreed that she should be DNR, DNI we agreed with formal palliative consultation tomorrow I did tell him that I was unsure if she would leave the hospital, unsure if her mental status will improve Review of Systems Review of Systems: Unobtainable due to reduced consciousness Physical Exam Constitutional: + frail appearing and + lethargic; no acute distress Eyes: PERRL, conjunctivae normal, anicteric sclerae ENMT: external ear and nose normal, oropharynx normal Neck: trachea midline, no thyromegaly Respiratory: normal respiratory effort and + cough (weak, cannot mobilize sputum); no respiratory distress Auscultation: + diminished lung sounds (bases) and + crackles; no rales and no wheezes Cardiovascular: RRR, no murmur, no edema Gastrointestinal (Abdomen): normal bowel sounds, soft, nontender, no hepatosplenomegaly Musculoskeletal: Head/Neck/Chest: normocephalic and head atraumatic Extremities: extremities normal to inspection and + abnormal strength (left side 1/5 strength, right side 4/5); no cyanosis and no clubbing Skin: no rashes, warm and dry Neurologic: patellar DTR's 2+ bilat, sensation intact and PERRL, EOMI, accommodation nl, no face palsy, no dysarthria Psychiatric: A+Ox3, euthymic affect Lymphatic: no cervical or axillary lymphadenopathy Results & Data ([facility]) Vital Signs (Past 12 Hours) Vital Signs Temp Pulse Pulse Resp BP BP Pulse Ox 04/16/19 15:29 85 22 97 04/16/19 15:00 36.9 C 86 18 144/69 H 97 04/16/19 11:23 36.6 C 87 20 135/70 98 04/16/19 11:17 87 26 H 98 04/16/19 07:32 88 04/16/19 07:06 88 22 98 04/16/19 07:00 37.1 C 87 18 123/74 98 Laboratory Results Laboratory Results - last 24 hr 04/15/19 04/15/19 04/15/19 20:22 20:49 20:49 ABG pH ABG pCO2 ABG pO2 ABG HCO3 ABG O2 Saturation ABG Base Excess Savage Test Barometric Pressure Oxygen Given Sodium 141 Potassium 4.5 Chloride 107 Carbon Dioxide 30 Anion Gap 4.0 BUN 25 H Creatinine 1.09 Est Cr Clr Drug Dosing 32.8 Est GFR ( Amer) 55.1 Est GFR (Non-Af Amer) 47.6 BUN/Creatinine Ratio 23.3 H Glucose 111 H POC Glucose 115 H Lactate Calcium 8.6 Ammonia 24.9 Fluid Neutrophils % Fluid Lymphocytes % Fluid Eosinophils % Fluid Basophils % Fluid Meso/Macro/[place] % Pleural Fluid Source Pleural Color Pleural Appearance Pleural pH Pleural WBC Pleural RBC Pleural Total Protein Pleural LDH Pleural Glucose Pleural Amylase Pleural Cholesterol 02/04/20 02/04/20 02/04/20 20:49 20:49 23:31 ABG pH 7.30 L Cancelled ABG pCO2 64 H Cancelled ABG pO2 81 Cancelled ABG HCO3 31 H Cancelled ABG O2 Saturation 94.1 Cancelled ABG Base Excess 3.4 H Cancelled Savage Test POS Cancelled Barometric Pressure 726.8 Cancelled Oxygen Given 3 LITERS Cancelled Sodium Potassium Chloride Carbon Dioxide Anion Gap BUN Creatinine Est Cr Clr Drug Dosing Est GFR ( Amer) Est GFR (Non-Af Amer) BUN/Creatinine Ratio Glucose POC Glucose Lactate 1.1 Calcium Ammonia Fluid Neutrophils % Fluid Lymphocytes % Fluid Eosinophils % Fluid Basophils % Fluid Meso/Macro/[place] % Pleural Fluid Source Pleural Color Pleural Appearance Pleural pH Pleural WBC Pleural RBC Pleural Total Protein Pleural LDH Pleural Glucose Pleural Amylase Pleural Cholesterol 04/16/19 04/16/19 04/16/19 00:07 07:13 12:10 ABG pH 7.27 L ABG pCO2 66 H ABG pO2 128 H ABG HCO3 30 H ABG O2 Saturation 98.0 H ABG Base Excess 2.3 H Savage Test Pos Barometric Pressure Oxygen Given 60% FIO2 Sodium 141 Potassium 4.5 Chloride 105 Carbon Dioxide 32 Anion Gap 4.0 BUN 26 H Creatinine 1.17 Est Cr Clr Drug Dosing 30.6 Est GFR ( Amer) 50.6 Est GFR (Non-Af Amer) 43.7 BUN/Creatinine Ratio 22.4 H Glucose 109 H POC Glucose Lactate Calcium 9.2 Ammonia Fluid Neutrophils % Fluid Lymphocytes % Fluid Eosinophils % Fluid Basophils % Fluid Meso/Macro/[place] % Pleural Fluid Source Pleural Color Pleural Appearance Pleural pH 7.33 Pleural WBC Pleural RBC Pleural Total Protein Pleural LDH Pleural Glucose Pleural Amylase Pleural Cholesterol 04/16/19 04/16/19 04/16/19 Unknown Unknown Unknown ABG pH ABG pCO2 ABG pO2 ABG HCO3 ABG O2 Saturation ABG Base Excess Savage Test Barometric Pressure Oxygen Given Sodium Potassium Chloride Carbon Dioxide Anion Gap BUN Creatinine Est Cr Clr Drug Dosing Est GFR ( Amer) Est GFR (Non-Af Amer) BUN/Creatinine Ratio Glucose POC Glucose Lactate Calcium Ammonia Fluid Neutrophils % 0 Fluid Lymphocytes % 77 Fluid Eosinophils % 0 Fluid Basophils % 0 Fluid Meso/Macro/[place] % 23 Pleural Fluid Source RIGHT LUNG Pleural Color MIKI Pleural Appearance HAZY Pleural pH Pleural WBC 264 Pleural RBC 7000 Pleural Total Protein 3.3 Pleural LDH Cancelled 162 Pleural Glucose 105 Pleural Amylase 11 Pleural Cholesterol Pending Diagnostic Findings CT head without contrast IMPRESSION: 1. Findings concerning for expanding subacute infarcts in the right frontoparietal region near the vertex and right occipital lobe. Underlying lesions are considered less likely. Contrast-enhanced brain MRI is recommended for further evaluation. 2. Old limited infarcts in the left cerebellar hemisphere and right thalamus. Medications Administered Current Inpatient Medications Acetaminophen (Tylenol) 650 mg PO QID PRN PRN Reason: fever and mild pain Stop: 05/13/19 20:27 Albuterol (Ventolin Hfa) 2 puffs INH QID PRN PRN Reason: Shortness Of Breath Stop: 05/13/19 20:27 Albuterol (Duoneb) 3 ml INH DAILY PRN PRN Reason: Shortness Of Breath Stop: 05/13/19 20:27 Amlodipine Besylate (Norvasc) 2.5 mg PO QAM [facility] Stop: 05/14/19 08:59 Last Admin: 04/16/19 12:45 Dose: Not Given Documented by: Apixaban (Eliquis) 5 mg PO BID [facility] Stop: 05/13/19 20:59 Last Admin: 04/15/19 08:22 Dose: Not Given Documented by: Aspirin (Ecotrin Ectab) 81 mg PO QAM [facility] Stop: 05/14/19 08:59 Last Admin: 04/16/19 10:47 Dose: Not Given Documented by: Bisacodyl (Dulcolax) 10 mg [place] DAILY PRN PRN Reason: Constipation Stop: 05/13/19 20:27 Cetirizine HCl (Zyrtec) 10 mg PO QAM [facility] Stop: 05/14/19 08:59 Last Admin: 04/16/19 10:48 Dose: Not Given Documented by: Cyanocobalamin (Vitamin B-12) 500 mcg PO MoWeFr@0900 [facility] Stop: 05/14/19 08:59 Last Admin: 04/16/19 10:48 Dose: Not Given Documented by: Docusate Sodium (Colace) 100 mg PO BID PRN PRN Reason: Constipation Stop: 05/13/19 20:27 Gabapentin (Neurontin) 200 mg PO TID [facility] Stop: 05/13/19 20:59 Last Admin: 04/16/19 12:45 Dose: Not Given Documented by: Piperacillin Sod/Tazobactam (Sod 3.375 gm/ Dextrose) 115 mls @ 28.75 mls/hr IV Q8H [facility]; Protocol Stop: 04/21/19 17:59 Last Infusion: 04/16/19 14:04 Dose: Infused Documented by: Isosorbide Mononitrate (Imdur Extended Rel) 60 mg PO QAM [facility] Stop: 05/14/19 08:59 Last Admin: 04/16/19 12:45 Dose: Not Given Documented by: Magnesium Hydroxide (Milk Of Magnesia) 30 ml PO DAILY [facility] Stop: 05/14/19 08:59 Last Admin: 04/16/19 10:47 Dose: Not Given Documented by: Metoprolol Succinate (Toprol Xl) 25 mg PO BID17 [facility] Stop: 05/14/19 08:59 Last Admin: 04/16/19 12:45 Dose: Not Given Documented by: Miscellaneous Information (Consult) 1 ea N/A UD PRN PRN Reason: Consult Stop: 05/14/19 11:50 Montelukast Sodium (Singulair) 10 mg PO QAM [facility] Stop: 05/14/19 08:59 Last Admin: 04/16/19 10:47 Dose: Not Given Documented by: Ondansetron HCl (Zofran) 4 mg IV Q6H PRN PRN Reason: Nausea Stop: 05/13/19 20:27 Pantoprazole Sodium (Protonix) 40 mg PO DAILYBB [facility] Stop: 05/14/19 06:29 Last Admin: 04/16/19 06:03 Dose: Not Given Documented by: Sodium Biphosphate/Sodium Phosphate (Fleet Enema) 118 ml [place] DAILY PRN PRN Reason: Constipation Stop: 05/13/19 20:27 PG Care Time/CCT Total # of Minutes Spent Total Time Spent: 110 Total Time Spent with Patient: Total time spent is greater than 50% in coordination of care (as documented) at patient's floor/unit and/or counseling patient: Prolonged Care Time Prolonged Care Time: Yes Total Prolonged Care Time: 30 Critical Care Time: No Coding Level of Care Code 33525 Subseq Hosp Care Lvl 3 Diagnoses Stroke I63.9 CVA mechanism: unspecified HCAP (healthcare-associated pneumonia) J18.9 Weakness R53.1 SOB (shortness of breath) R06.02 Malignant pleural effusion J91.0 DVT of leg (deep venous thrombosis) I82.409 Affected thrombotic vein of extremity: unspecified vein of extremity Chronicity: unspecified Laterality: unspecified laterality Obstructive sleep apnea G47.33 Reactive airway disease J45.30 Asthma complication type: uncomplicated Asthma persistence: persistent Asthma severity: mild Hypertension I10 Hypertension type: essential hypertension Endometrial cancer C54.1 Additional Codes Prolonged Care Time - Prolonged Care Time: Yes ([id number]) (1) Reactive airway disease Asthma complication type: uncomplicated Asthma persistence: persistent Asthma severity: mild Qualified Code(s): J45.30 - Mild persistent asthma, uncomplicated (2) DVT of leg (deep venous thrombosis) Affected thrombotic vein of extremity: unspecified vein of extremity Chronicity: unspecified Laterality: unspecified laterality Qualified Code(s): I82.409 - Acute embolism and thrombosis of unspecified deep veins of unspecified lower extremity (3) Hypertension Hypertension type: essential hypertension Qualified Code(s): I10 - Essential (primary) hypertension (4) Stroke CVA mechanism: unspecified Qualified Code(s): I63.9 - Cerebral infarction, unspecified
[2019-04-16] MEDS: SODIUM CHLORIDE 0.9% 1000ML 1,000 ML IV SCH (17:26)
[2019-04-17] MEDS: PIPERACILLIN/TAZOBACTAM 3.375 GM in DEXTROSE 5% 100 ML IV SCH ×3 (02:10→17:54)
[2019-04-17] MEDS: SODIUM CHLORIDE 0.9% 1000ML 1,000 ML IV SCH ×2 (05:45→17:54)
[2019-04-17] MEDS: PANTOprazole 40 MG TAB PO SCH (05:48)
[2019-04-17 06:44] LABS: BUN Creatinine Ratio 28.8 (10-20); Calcium 8.6 mg/dl (8.5-10.1); Creatinine Clr Calc Pharmacy 42.8 ml/min; Est GFR (African American) 76.6; Est GFR (Non-African American) 66.1; Potassium 4.1 mmol/L (3.5-5.1)
--- NOTE | 2019-04-17 08:57 | Palliative Care Consultation ---
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 Patient was just in hospital in March with subacute stroke. She was discharged to [facility] with hopes that eventually she would be transferred to SNF closer to family in [place]. CT scan of the head now shows progression of the area of stroke. She does have severe carotid stenosis that is inoperable, also her Eliquis was on hold for a thoracentesis that occurred yesterday 04/16. Patient had 850ml removed from right side. Also has left pleural effusion, but holding thoracentesis for now. Patient's overall condition is declining, she is weaker. Palliative care is consulted to discuss goals of care. -Met with patient in room 283-2. She does wake up, but is quite lethargic. Is on oxymask, no distress. Patient unable to speak in sentences but could mumble yes and no. She denied any pain or discomfort. Unable to participate in meaningful conversation. -Patient could follow commands such as squeezing my hand with her right hand, wiggling toes. Could not move left arm which is flaccid with no resistance. -Called patient's , Narciso ([phone]), and left message. Apparently he is not coming in today. I left him my phone number to call and let me know when he's available to speak. -Given patient's age and comorbidities, worsening stroke symptoms, further decline despite supportive care in the hospital, it seems as though her prognosis is quite poor. Poor rehab potential. Patient came from SNF prior to arrival, could return to SNF on comfort/hospice care depending on patient's family's wishes. They are from the [place] area. Will have further plans after discussion regarding goals of care. -We will continue to follow. (2) HCAP (healthcare-associated pneumonia): (3) Weakness: (4) Malignant pleural effusion: Supervising Physician Co-Signing Physician Notes Chart reviewed, patient seen and examined. Patient's 2 grandsons at bedside. Collaborated with FREEDOM Virk PE: Patient did not arouse to voice or touch HEENT: No excess oral secretions Respiratory: Unlabored, comfortable on O2 via oxime mask CV: Regular rate, no edema Abdomen: Not distended Neuro: Did not respond to voice or touch Agree with above note, assessment and plan as per FREEDOM Virk-plan to meet with patient's tomorrow to discuss goals of care. History of Present Illness Attending Physician: Ok Irvin DO History of Present Illness This 79 year old female patient with PMH HTN, DM, CAD s/p PCI, asthma, endometrial cancer s/p PAOLO-BSO and chemotherapy, Uterine/Ovarian cancer as well as active serous endometrial cancer and malignant pleural effusions, receives chemo weekly, presented to the hospital four days ago with c/o SOB. Patient was just in hospital in March with subacute stroke. She was discharged to [facility] with hopes that eventually she would be transferred to SNF closer to family in [place]. CT scan of the head now shows progression of the area of stroke. She does have severe carotid stenosis that is inoperable, also her Eliquis was on hold for a thoracentesis that occurred yesterday 04/16. Patient had 850ml removed from right side. Also has left pleural effusion, but holding thoracentesis for now. Patient's overall condition is declining, she is weaker. Palliative care is consulted to discuss goals of care. Thank you kindly for this consult. Palliative care team will follow as needed. Allergies Allergy/AdvReac Type Severity Reaction Status Date / Time animal dander Allergy Intermediate SNEEZING, Verified 04/13/19 16:32 CONGESTION grass pollen Allergy Intermediate SNEEZING, Verified 04/13/19 16:32 CONGESTION Home Medications Home Medications Medication Instructions Recorded Confirmed Type cyanocobalamin (vitamin B-12) 500 500 mcg PO 3XWK tab 11/18/18 04/13/19 History mcg disintegrating tablet,sublingual ergocalciferol (vitamin D2) 1,250 50,000 unit PO WK #4 cap 11/18/18 04/13/19 History mcg (50,000 unit) capsule ipratropium 0.5 mg-albuterol 3 mg 3 ml INHALATION DAILY PRN #6 ml 09/09/19 02/02/20 History (2.5 mg base)/3 mL nebulization soln isosorbide mononitrate 60 mg 60 mg PO QAM tab 11/18/18 04/13/19 History tablet,extended release 24 hr metoprolol succinate 25 mg 25 mg PO BID17 tab 11/18/18 04/13/19 History tablet,extended release 24 hr nitroglycerin 0.4 mg sublingual 0.4 mg SL DIRECTED PRN tab 11/18/18 04/13/19 History tablet omeprazole 20 mg capsule,delayed 20 mg PO DAILYBB cap 11/18/18 04/13/19 History release cetirizine [Zyrtec] 10 mg PO QAM 02/14/19 04/13/19 History amlodipine 2.5 mg PO QAM 03/23/19 04/13/19 History aspirin [Aspir-81] 81 mg PO QAM 03/23/19 04/13/19 History gabapentin 200 mg PO TID 30 Days #180 cap 04/01/19 04/13/19 Rx acetaminophen 650 mg PO QID PRN 04/04/19 04/13/19 History albuterol sulfate [Ventolin HFA] 2 puff INHALATION QID PRN 04/04/19 04/13/19 History apixaban [Eliquis] 5 mg PO AMPM 04/04/19 04/13/19 History bisacodyl [Dulcolax (bisacodyl)] 10 mg [place] DAILY PRN 04/04/19 04/13/19 History magnesium hydroxide [Milk of 30 ml PO DAILY 04/04/19 04/13/19 History Magnesia] sodium phosphates [Fleet Enema] 118 ml [place] DAILY PRN 04/04/19 04/13/19 History montelukast 10 mg PO QAM 04/13/19 04/13/19 History Patient History Medical History (Updated 04/17/19 @ 08:53 by FREEDOM Sue) Cancer (Acute) uterine, endometrial, abdominal cancer Carotid stenosis, right DVT (deep venous thrombosis) (Acute) Goals of care, counseling/discussion High cholesterol (Acute) History of cataract (Acute) Hypertension (Acute) Malignant pleural effusion (Inactive) Pacemaker (Acute) Stroke Surgical History History of (Acute) x3 History of carpal tunnel surgery (Acute) right hand History of hip replacement (Acute) right History of hysterectomy for cancer (Acute) History of knee replacement (Acute) b/l knees History of tonsillectomy (Acute) History of uvulectomy (Acute) Social History Preferred Language: Sinhala Communication Ability: Impaired Editor Sound Required: No Beliefs That Will Affect Care: None marital status: Current Living Situation: Intermediate Feels Safe at Home: Yes Smoking Status: Never smoker Second Hand Exposure: No ; Hx Alcohol Use: No Hx Substance Use: No Review of Systems Review of Systems: Patient denies pain, N/V, SOB. Unable to obtain full ROS due to medical condition. Physical Exam Constitutional: + ill appearing and + frail appearing Eyes: PERRL ENMT: external ear and nose normal, oropharynx normal Respiratory: normal respiratory effort, lungs clear to auscultation Auscultation: + diminished lung sounds Cardiovascular: RRR, no murmur, no edema Gastrointestinal (Abdomen): Inspection/Auscultation: normal bowel sounds Percussion/Palpation: abdomen soft Skin: + pallor Neurologic: awake; + does not move all extremities (left arm flaccid) Psychiatric: Orientation: + not alert (lethargic) and + not oriented x 3 Results & Data Vital Signs (Past 12 Hours) Vital Signs Temp Pulse Pulse Resp BP BP Pulse Ox 04/17/19 07:03 89 26 H 96 04/17/19 06:34 37.1 C 93 H 20 157/80 H 95 04/17/19 03:00 36.6 C 95 H 20 135/76 96 04/17/19 02:51 94 H 04/16/19 23:48 37.1 C 97 H 18 145/68 H 96 04/16/19 22:55 96 H 29 H 96 Coding Level of Care Code 83466 Inpt Consult Level 3 Diagnoses Goals of care, counseling/discussion Z71.89 HCAP (healthcare-associated pneumonia) J18.9 Weakness R53.1 Malignant pleural effusion J91.0 Time Spent (min) 75 Time Spent Midlevel 50 minutes with >50% of the time spent at bedside with patient and staff discussing condition and plan of care. Attending Spent 25 minutes in addition to the 50 minutes spent by FREEDOM Virk for total of 75 minutes with greater than 50% of the time spent at bedside providing support and answering family's questions.
--- NOTE | 2019-04-17 09:11 | Progress Notes ---
DATE: 04/17/2019 Ms. Knight remains on BiPAP. We drained 850 mL of fluid from her right side and her x-ray looked much improved on the right, although she has a significant effusion on the left. This was a malignant effusion. It does not appear to be infected. It is probably which is progression of her malignant pleural effusion. The patient appears to have had extension of her cerebral infarcts on CT scan. Dr. Khoa Irvin is going to discuss this with our team and we are going to hold off any intervention on the left side.
[2019-04-17] MEDS: ASPIRIN 81 MG ECTAB PO SCH (10:19)
[2019-04-17] MEDS: ISOSORBIDE MONO EXTENDED REL 60 MG TABCR PO SCH (10:19)
[2019-04-17] MEDS: MAGNESIUM HYDROXIDE SUSP 30 ML UDC PO SCH (10:19)
[2019-04-17] MEDS: GABAPENTIN 100 MG CAP PO SCH ×3 (10:19→15:50)
[2019-04-17] MEDS: AMLODIPINE BESYLATE 5 MG TAB PO SCH (10:20)
[2019-04-17] MEDS: MONTELUKAST SODIUM 10 MG TABLET PO SCH (10:20)
[2019-04-17] MEDS: CETIRIZINE HCL 10 MG TABLET PO SCH (10:20)
[2019-04-17] MEDS: METOPROLOL SUCC 25MG EXT REL TAB PO SCH ×2 (10:20→15:49)
--- NOTE | 2019-04-17 12:29 | Hospitalist Progress Note ---
Date of Service April 17, 2019 Assessment & Plan (1) Stroke: Diagnosed at last admission, right frontoparietal and occipital at that time MRI could not be done because pacemaker incompatible patient also found to have critical right ICA stenosis, deemed to not be surgical candidate by vascular surgery on 04/16 with worsening lethargy, confusion repeat CT head showed expanding area of stroke in right frontoparietal and occipital lobe her prognosis is grave, condition deteriorating discussed with family that she will only continue to have further strokes, will never recover also, given her terrible performance status and metastatic endometrial cancer, it is time to make her palliative family agrees code status is DNR/DNI palliative care consulted, they spoke with family today, plan for meeting tomorrow family would prefer hospice at SNF (2) HCAP (healthcare-associated pneumonia): CXR with bibasilar infiltrates, very weak and poor cough, likely issues with aspirating will treat possible aspiration pneumonia, possible gram negative pn eumonia/possible MRSA pneumonia continue Zosyn WBC normal, no fever, decline in mental status related to expanding stroke procalcitonin was normal on admission continue Zosyn for time being, only complete 5 days total, last day would be tomorrow (3) Weakness: Patient with diffuse weakness per report. Strength 4/5 on right side, left side with hemineglect from prior CVA, strength 1/5. Most likely secondary to deconditioning from prior hospital stay as well dehydration and pneumonia -She received NSS x 1 L bolus in ER followed by maintenance x 1 liter at 125mL/hr. -Albumin 25% x 2 bottles -Replete electrolytes as needed, stable today -Tx of pneumonia -PT/OT eval will not recover, area of stroke is expanding change to palliative course (4) SOB (shortness of breath): Patient denies SOB. She is requiring supplemental O2 at this time. -Check Procalcitonin, only 0.24 -Supplemental O2 as needed changed from BIPAP to nasal canula today, oxygen levels stable, no distress (5) Malignant pleural effusion: h/o effusions treated with PleurX eventually the PleurX was removed by Dr. Irby due to metastatic endometrial cancer bilateral effusions present on admission Dr. Irby able to drain 850cc on the right side on 04/16 no further tap planned with palliative approach (6) DVT of leg (deep venous thrombosis): Diagnosed at last admission -hold Eliquis for thoracentesis cannot take PO safely at this time hold further anticoagulation with plans for hospice (7) Obstructive sleep apnea: no further BiPAP (8) Reactive airway disease: No wheezing on exam -Continue DuoNebs, Albuterol PRN -Continue Zyrtec and Singulair at home doses (9) Hypertension: Blood pressure stable -unable to take PO meds safely at this time BP elevated use Hydralazine PRN (10) Endometrial cancer: Endometrial carcinoma with metastases -Hx of endometrial cancer diagnosed in 2014 (s/p total hysterectomy with bilateral salpingo-oophorectomy, chemotherapy and brachytherapy) -pt follow with Dr. Hinton and receiving chemotherapy through port every treatment on hold for past 3 weeks due to deconditioning and stroke will reach out to Dr. Hinton to let him know we are making her palliative Subjective patient resting comfortably, still with decreased responsiveness had respiratory therapy remove BIPAP, oxygen stable on nasal canula discussed with RN, will downgrade to medical floor discussed with palliative care, they contacted family, plan for family meeting tomorrow labs today show stable electrolytes and Cr no fever, vitals stable Review of Systems Review of Systems: Unobtainable due to cognitive status Physical Exam Constitutional: + frail appearing and + lethargic; no acute distress Eyes: PERRL, conjunctivae normal, anicteric sclerae ENMT: external ear and nose normal, oropharynx normal Neck: trachea midline, no thyromegaly Respiratory: normal respiratory effort and + cough (weak, cannot mobilize sputum); no respiratory distress Auscultation: + diminished lung sounds (bases) and + crackles; no rales and no wheezes Cardiovascular: RRR, no murmur, no edema Gastrointestinal (Abdomen): normal bowel sounds, soft, nontender, no hepatosplenomegaly Musculoskeletal: Head/Neck/Chest: normocephalic and head atraumatic Extremities: extremities normal to inspection and + abnormal strength (left side 1/5 strength, right side 4/5); no cyanosis and no clubbing Skin: no rashes, warm and dry Neurologic: patellar DTR's 2+ bilat, sensation intact and PERRL, EOMI, accommodation nl, no face palsy, no dysarthria Psychiatric: Orientation: + not alert and + not oriented x 3 Lymphatic: no cervical or axillary lymphadenopathy Results & Data ([facility]) Vital Signs (Past 12 Hours) Vital Signs Temp Pulse Pulse Resp BP BP Pulse Ox 04/17/19 11:16 36.9 C 95 H 20 162/73 H 96 04/17/19 11:02 99 H 20 04/17/19 07:03 89 26 H 96 04/17/19 06:34 37.1 C 93 H 20 157/80 H 95 04/17/19 03:00 36.6 C 95 H 20 135/76 96 04/17/19 02:51 94 H Pulse Ox 04/17/19 11:16 04/17/19 11:02 97 04/17/19 07:03 04/17/19 06:34 04/17/19 03:00 04/17/19 02:51 Laboratory Results Laboratory Results - last 24 hr 04/16/19 04/16/19 04/17/19 Unknown Unknown 05:32 Sodium 141 Potassium 4.1 Chloride 106 Carbon Dioxide 29 Anion Gap 6.0 BUN 24 H Creatinine 0.83 D Est Cr Clr Drug Dosing 42.8 Est GFR ( Amer) 76.6 Est GFR (Non-Af Amer) 66.1 BUN/Creatinine Ratio 28.8 H Glucose 85 Calcium 8.6 Fluid Neutrophils % 0 Fluid Lymphocytes % 77 Fluid Eosinophils % 0 Fluid Basophils % 0 Fluid Meso/Macro/Wallace % 23 Pleural Fluid Source RIGHT LUNG Pleural Color MIKI Pleural Appearance HAZY Pleural WBC 264 Pleural RBC 7000 Pleural Total Protein 3.3 Pleural LDH Cancelled 162 Pleural Glucose 105 Pleural Amylase 11 Medications Administered Current Inpatient Medications Acetaminophen (Tylenol) 650 mg PO QID PRN PRN Reason: fever and mild pain Stop: 05/13/19 20:27 Albuterol (Ventolin Hfa) 2 puffs INH QID PRN PRN Reason: Shortness Of Breath Stop: 05/13/19 20:27 Albuterol (Duoneb) 3 ml INH DAILY PRN PRN Reason: Shortness Of Breath Stop: 05/13/19 20:27 Apixaban (Eliquis) 5 mg PO BID [facility] Stop: 05/13/19 20:59 Last Admin: 04/15/19 08:22 Dose: Not Given Documented by: Aspirin (Ecotrin Ectab) 81 mg PO QAM [facility] Stop: 05/14/19 08:59 Last Admin: 04/17/19 10:19 Dose: Not Given Documented by: Bisacodyl (Dulcolax) 10 mg SD DAILY PRN PRN Reason: Constipation Stop: 05/13/19 20:27 Docusate Sodium (Colace) 100 mg PO BID PRN PRN Reason: Constipation Stop: 05/13/19 20:27 Gabapentin (Neurontin) 200 mg PO TID [facility] Stop: 05/13/19 20:59 Last Admin: 04/17/19 13:02 Dose: Not Given Documented by: Piperacillin Sod/Tazobactam (Sod 3.375 gm/ Dextrose) 115 mls @ 28.75 mls/hr IV Q8H [facility]; Protocol Stop: 04/21/19 17:59 Last Admin: 04/17/19 10:13 Dose: 28.8 mls/hr Documented by: Sodium Chloride (Nss 1000ml) 1,000 mls @ 80 mls/hr IV .[id number] [facility] Stop: 05/16/19 17:14 Last Admin: 04/17/19 05:45 Dose: 80 mls/hr Documented by: Isosorbide Mononitrate (Imdur Extended Rel) 60 mg PO QAM [facility] Stop: 05/14/19 08:59 Last Admin: 04/17/19 10:19 Dose: Not Given Documented by: Metoprolol Succinate (Toprol Xl) 25 mg PO BID17 [facility] Stop: 05/14/19 08:59 Last Admin: 04/17/19 10:20 Dose: Not Given Documented by: Miscellaneous Information (Consult) 1 ea N/A UD PRN PRN Reason: Consult Stop: 05/14/19 11:50 Ondansetron HCl (Zofran) 4 mg IV Q6H PRN PRN Reason: Nausea Stop: 05/13/19 20:27 Pantoprazole Sodium (Protonix) 40 mg PO DAILYBB [facility] Stop: 05/14/19 06:29 Last Admin: 04/17/19 05:48 Dose: Not Given Documented by: Sodium Biphosphate/Sodium Phosphate (Fleet Enema) 118 ml SD DAILY PRN PRN Reason: Constipation Stop: 05/13/19 20:27 PG Care Time/CCT Total # of Minutes Spent Total Time Spent with Patient: Total time spent is greater than 50% in coordination of care (as documented) at patient's floor/unit and/or counseling patient: Coding Level of Care Code 02825 Subseq Hosp Care Lvl 2 Diagnoses Stroke I63.9 CVA mechanism: unspecified HCAP (healthcare-associated pneumonia) J18.9 Weakness R53.1 SOB (shortness of breath) R06.02 Malignant pleural effusion J91.0 DVT of leg (deep venous thrombosis) I82.409 Affected thrombotic vein of extremity: unspecified vein of extremity Chronicity: unspecified Laterality: unspecified laterality Obstructive sleep apnea G47.33 Reactive airway disease J45.30 Asthma complication type: uncomplicated Asthma persistence: persistent Asthma severity: mild Hypertension I10 Hypertension type: essential hypertension Endometrial cancer C54.1 (1) Reactive airway disease Asthma complication type: uncomplicated Asthma persistence: persistent Asthma severity: mild Qualified Code(s): J45.30 - Mild persistent asthma, uncomplicated (2) DVT of leg (deep venous thrombosis) Affected thrombotic vein of extremity: unspecified vein of extremity Chronicity: unspecified Laterality: unspecified laterality Qualified Code(s): I82.409 - Acute embolism and thrombosis of unspecified deep veins of unspecified lower extremity (3) Hypertension Hypertension type: essential hypertension Qualified Code(s): I10 - Essential (primary) hypertension (4) Stroke CVA mechanism: unspecified Qualified Code(s): I63.9 - Cerebral infarction, unspecified
[2019-04-17] MEDS ORDERED: HydrALAZINE HCL 20 MG/ML VIAL IV PRN (13:15)
[2019-04-17] MEDS: APIXABAN 5 MG TABLET PO SCH (15:50)
[2019-04-18] MEDS: PIPERACILLIN/TAZOBACTAM 3.375 GM in DEXTROSE 5% 100 ML IV SCH ×2 (02:16→10:11)
[2019-04-18] MEDS: SODIUM CHLORIDE 0.9% 1000ML 1,000 ML IV SCH (06:14)
[2019-04-18] MEDS: PANTOprazole 40 MG TAB PO SCH (06:14)
[2019-04-18] MEDS: APIXABAN 5 MG TABLET PO SCH (07:40)
[2019-04-18] MEDS: ASPIRIN 81 MG ECTAB PO SCH (07:40)
[2019-04-18] MEDS: ISOSORBIDE MONO EXTENDED REL 60 MG TABCR PO SCH (07:40)
[2019-04-18] MEDS: METOPROLOL SUCC 25MG EXT REL TAB PO SCH (07:41)
[2019-04-18] MEDS: GABAPENTIN 100 MG CAP PO SCH (07:41)
[2019-04-18 07:42] LABS: BUN Creatinine Ratio 24.1 (10-20); Creatinine Clr Calc Pharmacy 55.6 ml/min; Est GFR (African American) 96.5; Est GFR (Non-African American) 83.3; Potassium 3.9 mmol/L (3.5-5.1)
[2019-04-18] MEDS ORDERED: MoRPHine SULFATE 5 MG/0.25 ML UDP PO PRN (11:30)
--- NOTE | 2019-04-18 11:38 | Hospitalist Progress Note ---
Date of Service April 18, 2019 Assessment & Plan (1) Goals of care, counseling/discussion: given her progressive stroke, critical carotid stenosis, metastatic endometrial cancer, will make comfort care no further fluids, labs, stop Zosyn Roxanol, Zofran PRN comfort measures ordered, discussed with RN (2) Stroke: Diagnosed at last admission, right frontoparietal and occipital at that time MRI could not be done because pacemaker incompatible patient also found to have critical right ICA stenosis, deemed to not be surgical candidate by vascular surgery on 04/16 with worsening lethargy, confusion repeat CT head showed expanding area of stroke in right frontoparietal and occipital lobe her prognosis is grave, condition deteriorating discussed with family that she will only continue to have further strokes, will never recover also, given her terrible performance status and metastatic endometrial cancer, it is time to make her palliative family agrees code status is DNR/DNI palliative care consulted, family meeting with on 04/18 comfort measures only (3) HCAP (healthcare-associated pneumonia): CXR with bibasilar infiltrates, very weak and poor cough, likely issues with aspirating will treat possible aspiration pneumonia, possible gram negative pneumonia/possible MRSA pneumonia continue Zosyn WBC normal, no fever, decline in mental status related to expanding stroke procalcitonin was normal on admission received 5 days of Zosyn, stop on 04/18 as we transition to comfort measures only (4) Weakness: Patient with diffuse weakness per report. Strength 4/5 on right side, left side with hemineglect from prior CVA, strength 1/5. Most likely secondary to deconditioning from prior hospital stay as well dehydration and pneumonia -She received NSS x 1 L bolus in ER followed by maintenance x 1 liter at 125mL/hr. -Albumin 25% x 2 bottles -Replete electrolytes as needed, stable today -Tx of pneumonia -PT/OT eval will not recover, area of stroke is expanding change to palliative course (5) SOB (shortness of breath): Patient denies SOB. She is requiring supplemental O2 at this time. -Check Procalcitonin, only 0.24 -Supplemental O2 as needed changed from BIPAP to nasal canula oxygen levels stable, no distress (6) Malignant pleural effusion: h/o effusions treated with PleurX eventually the PleurX was removed by Dr. Irby due to metastatic endometrial cancer bilateral effusions present on admission Dr. Irby able to drain 850cc on the right side on 04/16 no further tap planned with palliative approach (7) DVT of leg (deep venous thrombosis): Diagnosed at last admission -hold Eliquis for thoracentesis cannot take PO safely at this time hold further anticoagulation with plans for hospice (8) Obstructive sleep apnea: no further BiPAP (9) Reactive airway disease: No wheezing on exam -Continue DuoNebs, Albuterol PRN -Continue Zyrtec and Singulair at home doses (10) Hypertension: Blood pressure stable -unable to take PO meds safely at this time BP elevated use Hydralazine PRN (11) Endometrial cancer: Endometrial carcinoma with metastases -Hx of endometrial cancer diagnosed in 2014 (s/p total hysterectomy with bilateral salpingo-oophorectomy, chemotherapy and brachytherapy) -pt follow with Dr. Hinton and receiving chemotherapy through port every treatment on hold for past 3 weeks due to deconditioning and stroke spoke with Dr. Hinton on 04/17 to let him know we are making her palliative Subjective patient minimally responsive, not speaking, lethargic at baseline will no eat or drink or take medications had a discussion with the patient's and her normalizer with palliative care, Karen LOJA discussed goals of care, will make patient comfortable no further vitals, labs, will stop IV fluids and Zosyn will watch patient over the weekend, if she remains stable will consider SNF hospice if she deteriorates quickly then keep her comfortable here Review of Systems Review of Systems: Unobtainable due to reduced consciousness Physical Exam Constitutional: + frail appearing and + lethargic; no acute distress Eyes: PERRL, conjunctivae normal, anicteric sclerae ENMT: external ear and nose normal, oropharynx normal Neck: trachea midline, no thyromegaly Respiratory: normal respiratory effort and + cough (weak, cannot mobilize sputum); no respiratory distress Auscultation: + diminished lung sounds (bases) and + crackles; no rales and no wheezes Cardiovascular: RRR, no murmur, no edema Gastrointestinal (Abdomen): normal bowel sounds, soft, nontender, no hepatosplenomegaly Musculoskeletal: Head/Neck/Chest: normocephalic and head atraumatic Extremities: extremities normal to inspection and + abnormal strength (left side 1/5 strength, right side 4/5); no cyanosis and no clubbing Skin: no rashes, warm and dry Neurologic: patellar DTR's 2+ bilat, sensation intact and PERRL, EOMI, accommodation nl, no face palsy, no dysarthria Psychiatric: Orientation: + not alert and + not oriented x 3 Lymphatic: no cervical or axillary lymphadenopathy Results & Data ([facility]) Vital Signs (Past 12 Hours) Vital Signs Temp Pulse Resp BP Pulse Ox 04/18/19 07:00 36.9 C 93 H 18 178/64 H 96 Laboratory Results Laboratory Results - last 24 hr 04/18/19 06:48 Sodium 143 Potassium 3.9 Chloride 110 H Carbon Dioxide 24 Anion Gap 9.0 BUN 16 Creatinine 0.65 Est Cr Clr Drug Dosing 55.6 Est GFR ( Amer) 96.5 Est GFR (Non-Af Amer) 83.3 BUN/Creatinine Ratio 24.1 H Glucose 95 Calcium 9.0 Medications Administered Current Inpatient Medications Morphine Sulfate (Roxanol) 5 mg PO Q4 PRN PRN Reason: Pain Stop: 05/02/19 11:29 Ondansetron HCl (Zofran) 4 mg IV Q6H PRN PRN Reason: Nausea Stop: 05/13/19 20:27 PG Care Time/CCT Total # of Minutes Spent Total Time Spent: 40 Total Time Spent with Patient: Total time spent is greater than 50% in coordination of care (as documented) at patient's floor/unit and/or counseling patient: Coding Level of Care Code 28473 Subseq Hosp Care Lvl 3 Diagnoses Goals of care, counseling/discussion Z71.89 Stroke I63.9 CVA mechanism: unspecified HCAP (healthcare-associated pneumonia) J18.9 Weakness R53.1 SOB (shortness of breath) R06.02 Malignant pleural effusion J91.0 DVT of leg (deep venous thrombosis) I82.409 Affected thrombotic vein of extremity: unspecified vein of extremity Chronicity: unspecified Laterality: unspecified laterality Obstructive sleep apnea G47.33 Reactive airway disease J45.30 Asthma severity: mild Asthma persistence: persistent Asthma complication type: uncomplicated Hypertension I10 Hypertension type: essential hypertension Endometrial cancer C54.1 (1) Stroke CVA mechanism: unspecified Qualified Code(s): I63.9 - Cerebral infarction, unspecified (2) DVT of leg (deep venous thrombosis) Affected thrombotic vein of extremity: unspecified vein of extremity Chronicity: unspecified Laterality: unspecified laterality Qualified Code(s): I82.409 - Acute embolism and thrombosis of unspecified deep veins of unspecified lower extremity (3) Reactive airway disease Asthma severity: mild Asthma persistence: persistent Asthma complication type: uncomplicated Qualified Code(s): J45.30 - Mild persistent asthma, uncom plicated (4) Hypertension Hypertension type: essential hypertension Qualified Code(s): I10 - Essential (primary) hypertension
--- NOTE | 2019-04-18 12:43 | Palliative Care Progress Note ---
Date of Service April 18, 2019 Assessment & Plan (1) Goals of care, counseling/discussion: -Patient remains minimally responsive. She is still too lethargic to eat, drink or take any medications orally. -Dr. Irvin and I spoke with patient's , Valente, as well as the patient's field artillery operations specialist about her medical condition and goals of care. -Valente understands that patient's stroke is worsening and she is now minimally responsive. Recovery potential is quite poor. -Discussed what patient's wishes would be at this point, and Valente has made the decision to transition to comfort measures only. -Stop IVF. Stop lab draws. -Give medications for comfort as ordered. -If patient is stable over the weekend, can look for SNFs closer to patient's in the [place] area to go to for hospice. parking lot manager updated. -We will continue to follow. (2) HCAP (healthcare-associated pneumonia): (3) Weakness: (4) Malignant pleural effusion: Subjective Patient does awaken when spoken to, but is minimally responsive. Is able to mumble "uh huh". Patient's Narciso and her field artillery operations specialist are at bedside. Review of Systems Review of Systems: Patient denies pain, N/V, SOB. Unable to obtain full ROS due to medical condition. Physical Exam Constitutional: + ill appearing and + frail appearing Eyes: PERRL ENMT: external ear and nose normal, oropharynx normal Respiratory: normal respiratory effort, lungs clear to auscultation Auscultation: + diminished lung sounds Cardiovascular: RRR, no murmur, no edema Gastrointestinal (Abdomen): Inspection/Auscultation: normal bowel sounds Percussion/Palpation: abdomen soft Skin: + pallor Neurologic: awake; + does not move all extremities (left arm flaccid) Psychiatric: Orientation: + not alert (lethargic) and + not oriented x 3 Results & Data Vital Signs (Past 12 Hours) Vital Signs Temp Pulse Resp BP Pulse Ox 04/18/19 07:00 36.9 C 93 H 18 178/64 H 96 Supervising Physician Co-Signing Physician Notes Chart reviewed, patient seen and examined. No family at bedside Collaborated with FREEDOM Virk PE: Patient did not arouse to voice or touch HEENT: No excess oral secretions Respiratory: Increased respiratory rate, respirations rapid and shallow CV: Tachycardic on exam, no edema Abdomen: Not distended, no grimace with palpation Skin: Clammy to touch Neuro: Did not respond to voice or touch Agree with above note, assessment and plan as per FREEDOM Virk-we will continue to provide comfort care, patient may be nearing end-of-life. Coding Level of Care Code 19449 Subseq Hosp Care Lvl 3 Diagnoses Goals of care, counseling/discussion Z71.89 HCAP (healthcare-associated pneumonia) J18.9 Weakness R53.1 Malignant pleural effusion J91.0 Time Spent (min) 35 Time Spent Midlevel 35 minutes with >50% of the time spent at bedside with patient and family discussing condition, wishes, and comfort measures.
[2019-04-18] MEDS ORDERED: ATROPINE SULFATE 1% OP SOLN 5 ML BTL SL PRN (15:15)
[2019-04-18] MEDS ORDERED: LORazepam 0.5 MG TAB SL PRN (15:15)
[2019-04-18] MEDS: MoRPHine SULFATE 5 MG/0.25 ML UDP PO PRN ×3 (15:34→21:52)
[2019-04-19] MEDS: MoRPHine SULFATE 5 MG/0.25 ML UDP PO PRN ×3 (01:46→10:54)
[2019-04-19] MEDS: MoRPHine SULFATE 2 MG/ML CARP IV PRN ×2 (12:25→14:04)
--- NOTE | 2019-04-19 12:41 | Hospitalist Progress Note ---
Date of Service April 19, 2019 Assessment & Plan (1) Goals of care, counseling/discussion: given her progressive stroke, critical carotid stenosis, metastatic endometrial cancer, will make comfort care no further fluids, labs, stop Zosyn Roxanol, Zofran PRN comfort measures ordered will add Morphine 2mg IV q2 PRN, if not comfortable then increase Morphine (2) Stroke: Diagnosed at last admission, right frontoparietal and occipital at that time MRI could not be done because pacemaker incompatible patient also found to have critical right ICA stenosis, deemed to not be surgical candidate by vascular surgery on 04/16 with worsening lethargy, confusion repeat CT head showed expanding area of stroke in right frontoparietal and occipital lobe her prognosis is grave, condition deteriorating discussed with family that she will only continue to have further strokes, will never recover also, given her terrible performance status and metastatic endometrial cancer, it is time to make her palliative family agrees code status is DNR/DNI palliative care consulted, family meeting with on 04/18 comfort measures only (3) HCAP (healthcare-associated pneumonia): CXR with bibasilar infiltrates, very weak and poor cough, likely issues with aspirating will treat possible aspiration pneumonia, possible gram negative pneumonia/possible MRSA pneumonia continue Zosyn WBC normal, no fever, decline in mental status related to expanding stroke procalcitonin was normal on admission received 5 days of Zosyn, stop on 04/18 as we transition to comfort measures only (4) Weakness: Patient with diffuse weakness per report. Strength 4/5 on right side, left side with hemineglect from prior CVA, strength 1/5. Most likely secondary to deconditioning from prior hospital stay as well dehydration and pneumonia -She received NSS x 1 L bolus in ER followed by maintenance x 1 liter at 125mL/hr. -Albumin 25% x 2 bottles -Replete electrolytes as needed, stable today -Tx of pneumonia -PT/OT eval will not recover, area of stroke is expanding change to palliative course (5) SOB (shortness of breath): Patient denies SOB. She is requiring supplemental O2 at this time. -Check Procalcitonin, only 0.24 -Supplemental O2 as needed changed from BIPAP to nasal canula oxygen levels stable, no distress (6) Malignant pleural effusion: h/o effusions treated with PleurX eventually the PleurX was removed by Dr. Irby due to metastatic endometrial cancer bilateral effusions present on admission Dr. Irby able to drain 850cc on the right side on 04/16 no further tap planned with palliative approach (7) DVT of leg (deep venous thrombosis): Diagnosed at last admission -hold Eliquis for thoracentesis cannot take PO safely at this time hold further anticoagulation with plans for hospice (8) Obstructive sleep apnea: no further BiPAP (9) Reactive airway disease: No wheezing on exam -Continue DuoNebs, Albuterol PRN -Continue Zyrtec and Singulair at home doses (10) Hypertension: Blood pressure stable -unable to take PO meds safely at this time BP elevated use Hydralazine PRN (11) Endometrial cancer: Endometrial carcinoma with metastases -Hx of endometrial cancer diagnosed in 2014 (s/p total hysterectomy with bilateral salpingo-oophorectomy, chemotherapy and brachytherapy) -pt follow with Dr. Hinton and receiving chemotherapy through port every treatment on hold for past 3 weeks due to deconditioning and stroke spoke with Dr. Hinton on 04/17 to let him know we are making her palliative Subjective patient unresponsive breathing faster, RR in the 30s RN using Roxanol, not helping much, will try Morphine IV per RN, family was at bedside this AM but did not stay long, did no request to speak with physician Review of Systems Review of Systems: Unobtainable due to reduced consciousness Physical Exam Constitutional: + frail appearing and + lethargic; no acute distress Eyes: PERRL, conjunctivae normal, anicteric sclerae ENMT: external ear and nose normal, oropharynx normal Neck: trachea midline, no thyromegaly Respiratory: + labored breathing Auscultation: + diminished lung sounds (bases) and + crackles; no rales and no wheezes Cardiovascular: RRR, no murmur, no edema Gastrointestinal (Abdomen): normal bowel sounds, soft, nontender, no hepatosplenomegaly Musculoskeletal: Head/Neck/Chest: normocephalic and head atraumatic Extremities: extremities normal to inspection and + abnormal strength (left side 1/5 strength, right side 4/5); no cyanosis and no clubbing Skin: no rashes, warm and dry Neurologic: patellar DTR's 2+ bilat, sensation intact and PERRL, EOMI, accommodation nl, no face palsy, no dysarthria Psychiatric: A+Ox3, euthymic affect Orientation: + not alert and + not oriented x 3 Lymphatic: no cervical or axillary lymphadenopathy Results & Data ([facility]) Medications Administered Current Inpatient Medications Atropine Sulfate (Atropine Sulfate 1% Oph) 4 drops SL Q1H PRN PRN Reason: Secretions Stop: 05/18/19 15:14 Lorazepam (Ativan) 0.5 mg SL Q4H PRN PRN Reason: Anxiety/Agitation Stop: 05/18/19 15:14 Last Admin: 04/18/19 15:33 Dose: 0.5 mg Documented by: Morphine Sulfate (Roxanol) 5 mg PO Q3H PRN PRN Reason: Pain or SOB Stop: 05/02/19 11:29 Last Admin: 04/19/19 10:54 Dose: 5 mg Documented by: Morphine Sulfate (Morphine Sulfate) 2 mg IV Q2H PRN PRN Reason: Pain Stop: 05/03/19 12:12 Last Admin: 04/19/19 12:25 Dose: 2 mg Documented by: Ondansetron HCl (Zofran) 4 mg IV Q6H PRN PRN Reason: Nausea Stop: 05/13/19 20:27 PG Care Time/CCT Total # of Minutes Spent Total Time Spent with Patient: Total time spent is greater than 50% in coordination of care (as documented) at patient's floor/unit and/or counseling patient: Coding Level of Care Code 86301 Subseq Hosp Care Lvl 1 Diagnoses Goals of care, counseling/discussion Z71.89 Stroke I63.9 CVA mechanism: unspecified HCAP (healthcare-associated pneumonia) J18.9 Weakness R53.1 SOB (shortness of breath) R06.02 Malignant pleural effusion J91.0 DVT of leg (deep venous thrombosis) I82.409 Affected thrombotic vein of extremity: unspecified vein of extremity Chronicity: unspecified Laterality: unspecified laterality Obstructive sleep apnea G47.33 Reactive airway disease J45.30 Asthma severity: mild Asthma persistence: persistent Asthma complication type: uncomplicated Hypertension I10 Hypertension type: essential hypertension Endometrial cancer C54.1 (1) Stroke CVA mechanism: unspecified Qualified Code(s): I63.9 - Cerebral infarction, unspecified (2) DVT of leg (deep venous thrombosis) Affected thrombotic vein of extremity: unspecified vein of extremity Chronicity: unspecified Laterality: unspecified laterality Qualified Code(s): I82.409 - Acute embolism and thrombosis of unspecified deep veins of unspecified lower extremity (3) Reactive airway disease Asthma severity: mild Asthma persistence: persistent Asthma complication type: uncomplicated Qualified Code(s): J45.30 - Mild persistent asthma, uncomplicated (4) Hypertension Hypertension type: essential hypertension Qualified Code(s): I10 - Essential (primary) hypertension
[2019-04-19] MEDS ORDERED: MoRPHine SULF/NSS 250 MG/250 ML BTL IV SCH (14:30)
--- NOTE | 2019-04-19 16:21 | Death Summary ---
Date of Service April 19, 2019 Pronouncement Note Date and Time of Date of : 04/19/19 Time of : 16:10 PCOD Preliminary cause of : Ischemic stroke diagnosed during current admission Contributing Factors (1) Goals of care, counseling/discussion: (2) Stroke: (3) HCAP (healthcare-associated pneumonia): (4) Weakness: (5) SOB (shortness of breath): (6) Malignant pleural effusion: (7) DVT of leg (deep venous thrombosis): (8) Obstructive sleep apnea: (9) Reactive airway disease: (10) Hypertension: (11) Endometrial cancer: Additional Data Confirmation of : no pulse, no respirations, no heart sounds and pupils fixed and dilated Family: contacted Attending/PCP notified?: Yes Attending physician: Ok Irvin, DO Was code activated?: No Autopsy requested?: No operations examiner notified?: No Organ bank notified?: No Advance directives: No Coding Level of Care Code D/C Day Management <30 mins Diagnoses Goals of care, counseling/discussion Z71.89 Stroke I63.9 CVA mechanism: unspecified HCAP (healthcare-associated pneumonia) J18.9 Weakness R53.1 SOB (shortness of breath) R06.02 Malignant pleural effusion J91.0 DVT of leg (deep venous thrombosis) I82.409 Affected thrombotic vein of extremity: unspecified vein of extremity Chronicity: unspecified Laterality: unspecified laterality Obstructive sleep apnea G47.33 Reactive airway disease J45.30 Asthma severity: mild Asthma persistence: persistent Asthma complication type: uncomplicated Hypertension I10 Hypertension type: essential hypertension Endometrial cancer C54.1
--- NOTE | 2019-04-19 16:22 | Discharge Summary ---
Date of Service April 19, 2019 Admission HPI Per Admitting Provider Alix zavaleta is an 79yo C female with multiple medical problems, most notably a history of HTN/DM/CAD s/p PCI, asthma, endometrial cancer s/p PAOLO-BSO and chemotherapy, Uterine/Ovarian cancer as well as active serous endometrial cancer and malignant pleural effusions. She was recently admitted to [facility] on 04/01/19 with complaints of bilateral leg weakness. During that hospital stay she was diagnosed with a subacute ischemic stroke of the posterior aspect of the right parietal lobe measuring 2cm. Found with critical stenosis of the right ICA. Vascular surgery evaluated her and she was deemed to be a poor candidate for surgical intervention. She was continued on Atorvastatin and Aspirin. Now with left hemiparesis and left sided neglect. Also had an echo performed which showed an EF of 65-70%, Dilated RV and elevated RVSP. She was diuresed with IV Lasix. She was treated with antibiotics for bilateral leg cellulitis. She was started on Eliquis for an acute DVT. She was ultimately discharged to [facility]. She presents today with worsening SOB, hypoxia, weakness and fatigue. Patient offers no complaints. Says she does not know why she is here. She denies KENT, visual changes, CP/palpitations, denies cough/SOB, denies abdominal pain/nausea/vomiting/diarrhea or constipation. ER Course: Ceftriaxone, NSS x 1 L then at 125mL/hr x 1 liter Principal Diagnosis Ischemic stroke Discharge Exam without pulse, not breathing, no heart or lung sounds, pupils fixed Discharge Data Allergies Allergy/AdvReac Type Severity Reaction Status Date / Time animal dander Allergy Intermediate SNEEZING, Verified 04/13/19 16:32 CONGESTION grass pollen Allergy Intermediate SNEEZING, Verified 04/13/19 16:32 CONGESTION Consultations 04/13/19 17:48 ED Decision to Admit Stat 04/15/19 10:34 Consult Thoracic Surgery Routine 04/16/19 15:45 Consult Palliative Care Routine Ordered Studies 04/16/19 14:11 CT head/brain wo con Stat Hospital Course (1) Goals of care, counseling/discussion: given her progressive stroke, critical carotid stenosis, metastatic endometrial cancer, will make comfort care no further fluids, labs, stop Zosyn Roxanol, Zofran PRN comfort measures ordered patient still not responsive on 04/19 but her RR was up in the 30's despite Roxanol ordered Morphine 2mg IV q2, went back to reassess RN said that the morphine was not lasting the 2 hours, maybe an hour at that time a morphine drip was ordered and I called the patient's , Narciso, to let him know she was on a drip the patient at 1610 I called her Narciso to inform him of her passing (2) Stroke: Diagnosed at last admission, right frontoparietal and occipital at that time MRI could not be done because pacemaker incompatible patient also found to have critical right ICA stenosis, deemed to not be surgical candidate by vascular surgery on 04/16 with worsening lethargy, confusion repeat CT head showed expanding area of stroke in right frontoparietal and occipital lobe her prognosis was grave, condition rapidly deteriorated discussed with family that she will only continue to have further strokes, will never recover also, given her terrible performance status and metastatic endometrial cancer, it is time to make her palliative family agreed code status is DNR/DNI palliative care consulted, family meeting with on 04/18 comfort measures only (3) HCAP (healthcare-associated pneumonia): CXR with bibasilar infiltrates, very weak and poor cough, likely issues with aspirating will treat possible aspiration pneumonia, possible gram negative pneumonia/possible MRSA pneumonia continue Zosyn WBC normal, no fever, decline in mental status related to expanding stroke procalcitonin was normal on admission received 5 days of Zosyn, stop on 04/18 as we transition to comfort measures only (4) Weakness: Patient with diffuse weakness per report. Strength 4/5 on right side, left side with hemineglect from prior CVA, strength 1/5. Most likely secondary to deconditioning from prior hospital stay as well dehydration and pneumonia -She received NSS x 1 L bolus in ER followed by maintenance x 1 liter at 125mL/hr. -Albumin 25% x 2 bottles -Replete electrolytes as needed, stable today -Tx of pneumonia -PT/OT eval will not recover, area of stroke is expanding change to palliative course (5) SOB (shortness of breath): Patient denies SOB. She is requiring supplemental O2 at this time. -Check Procalcitonin, only 0.24 -Supplemental O2 as needed changed from BIPAP to nasal canula oxygen levels stable, no distress (6) Malignant pleural effusion: h/o effusions treated with PleurX eventually the PleurX was removed by Dr. Irby due to metastatic endometrial cancer bilateral effusions present on admission Dr. Irby able to drain 850cc on the right side on 04/16 no further tap planned with palliative approach (7) DVT of leg (deep venous thrombosis): Diagnosed at last admission -hold Eliquis for thoracentesis cannot take PO safely at this time hold further anticoagulation with plans for hospice (8) Obstructive sleep apnea: no further BiPAP (9) Reactive airway disease: No wheezing on exam -Continue DuoNebs, Albuterol PRN -Continue Zyrtec and Singulair at home doses (10) Hypertension: Blood pressure stable -unable to take PO meds safely at this time BP elevated use Hydralazine PRN (11) Endometrial cancer: Endometrial carcinoma with metastases -Hx of endometrial cancer diagnosed in 2014 (s/p total hysterectomy with bilateral salpingo-oophorectomy, chemotherapy and brachytherapy) -pt follow with Dr. Hinton and receiving chemotherapy through port every treatment on hold for past 3 weeks due to deconditioning and stroke spoke with Dr. Hinton on 04/17 to let him know we are making her palliative Total Time Total Time Spent Total Time Spent (In Minutes): 25 minutes Total Time Includes: Examination of the Patient and Other (communication with family) Discharge Plan Discharge Items Patient Disposition: Reason For Visit: HYPOXIA, SOB Follow-up/Referrals: Sandy Sánchez [Primary Care Provider] - Stand-Alone Forms: [facility] Admission Data Admit Date/Time: 04/13/19 19:17 Other DC Date/Time DO NOT enter until pt leaves facility: 04/19/19 16:59 Coding Level of Care Code D/C Day Management <30 mins Diagnoses Goals of care, counseling/discussion Z71.89 Stroke I63.9 CVA mechanism: unspecified HCAP (healthcare-associated pneumonia) J18.9 Weakness R53.1 SOB (shortness of breath) R06.02 Malignant pleural effusion J91.0 DVT of leg (deep venous thrombosis) I82.409 Affected thrombotic vein of extremity: unspecified vein of extremity Chronicity: unspecified Laterality: unspecified laterality Obstructive sleep apnea G47.33 Reactive airway disease J45.30 Asthma complication type: uncomplicated Asthma persistence: persistent Asthma severity: mild Hypertension I10 Hypertension type: essential hypertension Endometrial cancer C54.1
--- NOTE | 2019-05-10 12:20 | Coding Query ---
To promote full compliance with coding requirements relating to patient care, provider participation is requested in all cases of toy department manager uncertainty. Please assist us with the question(s) below: Coding Question(s): The diagnoses below were documented in the discharge summary as possible diagnoses. Please indicate if these were confirmed or ruled out. Physician's Response(s): Gram Negative Pneumonia ( ) Diagnosed and POA ( ) Diagnosed and not POA ( x ) Ruled out ( ) Other (please specify) Aspiration Pneumonia ( x ) Diagnosed and POA ( ) Diagnosed and not POA ( ) Ruled out ( ) Other (please specify) MRSA Pneumonia ( ) Diagnosed and POA ( ) Diagnosed and not POA ( x ) Ruled out ( ) Other (please specify) HCAP Pneumonia ( ) Diagnosed and POA ( ) Diagnosed and not POA ( x ) Ruled out ( ) Other (please specify) Physician's comments: Thank you for your time, TERRY Sloan, [facility]
--- NOTE | 2019-06-06 07:21 | Coding Query ---
CODING QUERY To promote full compliance with coding requirements relating to patient care, provider participation is requested in all cases of iv rn uncertainty. Please assist us with the question(s) below: Coding Question(s): Due to the complex nature of the patient's conditions your assistance is needed in determining the principle diagnosis. Based on your medical judgement can you please provide the principle diagnosis. Physician's Response(s): Acute ischemic stroke Thank you Felisha Walker CCS Principal Diagnosis: "that condition established after study, to be chiefly responsible for occasioning the admission of the patient to the hospital for care." Co-Existing Principal Diagnosis: "when two or more diagnoses equally meet the criteria for principal diagnosis as determined by the circumstances of admission, diagnostic work up, and/or therapy provided, and the Alphabetic Index, Tabular List, or another coding guideline does not provide sequencing direction, any one of the diagnoses may be sequenced first." "When the physician has documented what appears to be a current diagnosis in the body of the record, but has not included the diagnosis in the final diagnostic statement, the physician should be asked whether the diagnosis should be added." (Source Coding [facility] 2 QTR90. p3-4) DESI
== END 2019-04-19 16:59 | disposition expired | DRG 64 ==
LOC: ED 15:42 → SUATTDRO 19:17 → 2N 19:17 → 4W 04-18 17:37